=== PATIENT | male | born 1960 | race Caucasian/White ===

== ENCOUNTER 2023-05-25 16:57 | Emergency (ER) | payer OTHER, SELFPAY ==
[2023-05-25 17:08] VITALS: BP 134/80; PULSE 69; RESP 20; TEMP 36.6; O2SAT 97; BMI 33.0
--- NOTE | 2023-05-25 18:40 | XR_ITS ---
The [address] [address] Patient Name: JANIS BRANCH MRN: [id number] date: 1960 Sex: M Assigned Patient Location: ED.MAIN Current Patient Location: Accession/Order Number: [id number] Exam Date: 05/25/2023 19:20 Report Date: 05/25/2023 20:16 At the request of: NOHEMI WERNER Procedure: XR toe RT min 2V IMAGES REVIEWED: XR toe RT min 2V COMPARISON: None available. CLINICAL INDICATION: osteomyelitis FINDINGS/IMPRESSION: 1. No evidence of acute osseous abnormality of the right first toe. No radiographic evidence of osteomyelitis. 2. Small dorsal first toe soft tissue ulcer near the nailbed. Mild soft tissue swelling. 3. 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 Electronically authenticated by: JONA ARIAS Date: 05/25/2023 20:16
--- NOTE | 2023-05-25 18:42 | ED.GENADUL1 ---
HPI - General Adult General Chief complaint: Recheck/Abnormal Lab/Rx Stated complaint: right foot wound check Time Seen by Provider: 05/25/23 17:17 Source: patient Mode of arrival: walk-in Limitations: no limitations History of Present Illness HPI narrative: patient is a 62-year-old male history of diabetes who presents to the emergency department for recheck of a right great toe wound. Patient states one month ago he had a oil winterizer remove toenail from his right great toe. He states he has continued to have some drainage from the area but in the last week the area has become more red around the cuticle. He was concerned because of his history of diabetes. His oil winterizer is unavailable until next week. He denies fevers or vomiting. Related Data Previous Rx's Medication Instructions Recorded cephalexin 500 mg capsule 500 mg PO Q8H 10 days #30 caps 05/25/23 ketorolac 10 mg tablet 10 mg PO TID PRN pain #10 tabs 05/25/23 Allergies Allergy/AdvReac Type Severity Reaction Status Date / Time bisacodyl Allergy Intermediate Verified 05/25/23 17:12 [From Dulcolax (bisacodyl)] metformin Allergy Intermediate Verified 05/25/23 17:12 Review of Systems ROS Constitutional Denies: fever or chills Ears, nose, mouth, and throat Denies: throat pain Respiratory Denies: shortness of breath or cough Gastrointestinal Denies: nausea or vomiting Musculoskeletal Denies: back pain Integumentary/Breast Reports: redness and skin pain; Denies: rash Endocrine Denies: excessive urination Hematologic/Lymphatic Denies: easy bruising Exam Narrative Exam Narrative: Gen.: Awake, alert, in no distress Head: Normocephalic, atraumatic ENT: Moist mucous membranes Respiratory: No respiratory distress Extremities: Moves extremities equally, right great toe with minimal edema and erythema surrounding the toenail. Healing wound of the toenail bed, no active drainage. No red streaking or circumferential erythema. No extension of erythema or edema past the IP joint. Psych: Normal mood and affect Neuro: No focal neuro deficit Skin: Warm, dry, intact Constitutional Vital Signs, click to edit/add: Last Vital Signs Temp 97.8 F 05/25/23 17:08 Pulse 69 05/25/23 17:08 Resp 20 05/25/23 17:08 BP 134/80 05/25/23 17:08 Pulse Ox 97 05/25/23 17:08 O2 Del Method Room Air 05/25/23 17:08 Course Vital Signs Vital signs: Vital Signs Temperature 97.8 F 05/25/23 17:08 Pulse Rate 69 05/25/23 17:08 Respiratory Rate 20 05/25/23 17:08 Blood Pressure 134/80 05/25/23 17:08 Pulse Oximetry 97 05/25/23 17:08 Oxygen Delivery Method Room Air 05/25/23 17:08 Temperature 97.8 F 05/25/23 17:08 Pulse Rate 69 05/25/23 17:08 Respiratory Rate 20 05/25/23 17:08 Blood Pressure 134/80 05/25/23 17:08 Pulse Oximetry 97 05/25/23 17:08 Oxygen Delivery Method Room Air 05/25/23 17:08 Medical Decision Making MDM Narrative Medical decision making narrative: x-ray with no evidence of osteomyelitis and lab studies are stable in the Emergency Room. Patient will be placed on Keflex as a precaution due to early redness around the toenail and diabetic history. Follow-up with podiatry as scheduled and return to the Emergency Room if symptoms change or worsen. Medical Records Medical records reviewed: Yes I reviewed the patient's medical records Lab Data Lab results reviewed: Yes I reviewed the patient's lab results Labs: Lab Results 05/25/23 Range/Units 18:57 WBC 7.4 (4.0-11.0) 10^3/uL RBC 5.31 (4.70-6.10) 10^6/uL Hgb 15.7 (14.0-18.0) g/dL Hct 45.1 (42.0-54.0) % MCV 84.9 (80.0-94.0) fL MCH 29.6 (25.9-34.0) pg MCHC 34.8 (29.9-35.2) g/dL RDW 12.6 (11.0-15.0) % Plt Count 207 (150-450) 10^3/uL MPV 8.6 L (9.5-13.5) fL Neut % (Auto) 62.0 (43.0-75.0) % Lymph % (Auto) 23.3 (20.5-60.0) % [place] % (Auto) 9.3 (1.7-12.0) % Eos % (Auto) 4.0 (0.9-7.0) % Baso % (Auto) 0.9 (0.2-2.0) % Neut # (Auto) 4.6 (1.4-6.5) 10^3/uL Lymph # (Auto) 1.7 (1.2-3.8) 10^3/uL [place] # (Auto) 0.7 (0.3-0.8) 10^3/uL Eos # (Auto) 0.3 (0.0-0.7) 10^3/uL Baso # (Auto) 0.1 (0.0-0.1) 10^3/uL Abs Immat Gran (auto) 0.04 H (0.00-0.03) 10^3/uL Imm/Tot Granulo (auto) 0.5 (0.0-0.5) % Sodium 139 (136-145) mmol/L Potassium 3.9 (3.5-5.1) mmol/L Chloride 105 (98-107) mmol/L Carbon Dioxide 25.5 (21.0-32.0) mmol/L Anion Gap 12.4 BUN 18.0 (7.0-18.0) mg/dL Creatinine 1.30 (0.70-1.30) mg/dL Est GFR ( Amer) >60 (>=60) Est GFR (Non-Af Amer) 56 L (>=60) BUN/Creatinine Ratio 13.8 Glucose 97 (74-106) mg/dL Lactate 0.7 (0.4-2.0) mmol/L Calcium 9.0 (8.5-10.1) mg/dL Total Bilirubin 0.5 (0.2-1.0) mg/dL AST 25 (15-37) U/L ALT 38 (16-63) U/L Alkaline Phosphatase 102 (46-116) U/L C-Reactive Protein <0.2 (<=1.0) mg/dL Total Protein 7.1 (6.4-8.2) g/dL Albumin 4.3 (3.4-5.0) g/dL Globulin 2.8 g/dL Albumin/Globulin Ratio 1.5 Imaging Data XR toe: Attestation: I have reviewed the pertinent imaging results. Discharge Plan Discharge Chief Complaint: Recheck/Abnormal Lab/Rx Clinical Impression: Wound infection after surgery Patient Disposition: Home, Self-Care Time of Disposition Decision: 19:41 Condition: Good Prescriptions / Home Meds: New ketorolac 10 mg tablet 10 mg PO TID PRN (Reason: pain) Qty: 10 0RF cephalexin 500 mg capsule 500 mg PO Q8H 10 Days Qty: 30 0RF Instructions: Wound Infection (ED) Additional Instructions: Follow up with Dr. Hayward as scheduled Stand Alone Forms: Portal Instructions Referrals: Shaikh Simental MD [Primary Care Provider] - 1 week
[2023-05-25] MEDS: KETOROLAC TROMETHAMINE 10 MG TABLET PO (18:58)
[2023-05-25 19:03] LABS: Basophils Absolute Auto 0.1 10^3/uL (0.0-0.1); Basophils Percent Auto 0.9 % (0.2-2.0); Eosinophils Absolute Auto 0.3 10^3/uL (0.0-0.7); Hematocrit 45.1 % (42.0-54.0); Hemoglobin 15.7 g/dL (14.0-18.0); Immature Granulocytes Abs Auto 0.04 10^3/uL (0.00-0.03); Immature Granulocytes Pct Auto 0.5 % (0.0-0.5); Lymphocytes Absolute Auto 1.7 10^3/uL (1.2-3.8); Lymphocytes Percent Auto 23.3 % (20.5-60.0); Mean Corpuscular HGB Conc 34.8 g/dL (29.9-35.2); Mean Corpuscular Hemoglobin 29.6 pg (25.9-34.0); Mean Corpuscular Volume 84.9 fL (80.0-94.0); Mean Platelet Volume 8.6 fL (9.5-13.5); Monocytes Absolute Auto 0.7 10^3/uL (0.3-0.8); Monocytes Percent Auto 9.3 % (1.7-12.0); Neutrophils Absolute Auto 4.6 10^3/uL (1.4-6.5); Platelet Count 207 10^3/uL (150-450); Red Blood Count 5.31 10^6/uL (4.70-6.10); Red Cell Distribution Width 12.6 % (11.0-15.0); White Blood Count 7.4 10^3/uL (4.0-11.0)
[2023-05-25 19:19] LABS: Alanine Aminotransferase 38 U/L (16-63); Albumin Globulin Ratio 1.5; Albumin Level 4.3 g/dL (3.4-5.0); Alkaline Phosphatase 102 U/L (46-116); Anion Gap 12.4; Aspartate Amino Transferase 25 U/L (15-37); BUN Creatinine Ratio 13.8; Bilirubin Total 0.5 mg/dL (0.2-1.0); Carbon Dioxide 25.5 mmol/L (21.0-32.0); Chloride 105 mmol/L (98-107); Estimated GFR (African America >60 (>=60); Estimated GFR (Non-African Ame 56 (>=60); Globulin 2.8 g/dL; Glucose 97 mg/dL (74-106); Potassium 3.9 mmol/L (3.5-5.1); Sodium 139 mmol/L (136-145); Total Protein 7.1 g/dL (6.4-8.2)
[2023-05-25 19:21] LABS: C Reactive Protein <0.2 mg/dL (<=1.0)
[2023-05-25 19:22] LABS: Lactate/Lactic Acid 0.7 mmol/L (0.4-2.0)
--- NOTE | 2023-05-25 19:31 | PC.NURSE ---
Patient states that it has been one month and one day since he had his right great toe nail removed by a platform worker. He works at [employer] and walks 6-8 miles per day, states that he has a lot of pain, the toe swells a significant amount, and he has drainage on his sock after work. The toe is swollen and red at this time, but there is no active drainage.
[2023-05-25 20:28] LABS: Erythrocyte Sedimentation Rate 11 mm/hr (<=20)
== END 2023-05-25 19:51 | disposition home or self-care (01) ==
PROVIDERS: Physician Assistant; Emergency Provider Emergency Medicine; PCP Internal Medicine
DX: T81.49XA Infection following a procedure, other surgical site, initial encounter (principal); E11.9 Type 2 diabetes mellitus without complications
CPT/HCPCS: 36415; 73660; 80053; 83605; 85025; 85652; 86140; 99284

== ENCOUNTER 2024-05-24 14:31 | Outpatient (OUT) | payer OTHER, SELFPAY ==
[2024-05-24 15:18] LABS: Creatinine Urine Random 271.38 mg/dL (20.00-300.00); Microalbumin Urine Random <1.3 mg/dL (<=30.0)
[2024-05-24 15:34] LABS: Anion Gap 10.5; BUN Creatinine Ratio 9.6; Calcium 9.2 mg/dL (8.5-10.1); Carbon Dioxide 27.7 mmol/L (21.0-32.0); Chloride 104 mmol/L (98-107); Chol HDL Ratio 3.5; Cholesterol 115 mg/dL (<=200); Estimated GFR (African America >60 (>=60); Estimated GFR (Non-African Ame 58 (>=60); Glucose 111 mg/dL (74-106); HDL Cholesterol 33 mg/dL (40-60); Phosphorus 3.8 mg/dL (2.6-4.7); Potassium 4.2 mmol/L (3.5-5.1); Sodium 138 mmol/L (136-145); Triglycerides 103 mg/dL (<=150); VLDL CHOLESTEROL 20.6 mg/dL
[2024-05-25 04:08] LABS: C-Peptide, Serum 6.4 ng/mL (1.1-4.4)
== END 2024-05-24 14:32 | disposition home or self-care (01) ==
LOC: LAB 14:33
PROVIDERS: PCP Internal Medicine; Visit Provider Internal Medicine
DX: E11.49 Type 2 diabetes mellitus with other diabetic neurological complication (principal); E55.9 Vitamin D deficiency, unspecified; E78.2 Mixed hyperlipidemia; Z71.3 Dietary counseling and surveillance
CPT/HCPCS: 36415; 80061; 80069; 82043; 82306; 82570; 84681

== ENCOUNTER 2024-05-27 13:17 | Outpatient (OUT) | payer OTHER, SELFPAY ==
--- NOTE | 2024-05-27 13:23 | XR_ITS ---
The [place] [id number] Patient Name: JANIS BRANCH MRN: [id number] date: 1960 Sex: M Assigned Patient Location: [facility] Current Patient Location: Accession/Order Number: [id number] Exam Date: 05/27/2024 13:29 Report Date: 05/29/2024 05:16 At the request of: REYNOLD JOHANSEN Procedure: XR hand RT 2V PROCEDURE: XR hand RT 2V HISTORY: Injury Of Finger Of Right Hand S69.91XA ; fourth digit pain since falling 6 weeks ago COMPARISON: None. FINDINGS: BONES:No acute fracture, dislocation, bone lesion. Multifocal mild degenerative changes. SOFT TISSUES:No visible soft tissue swelling. EFFUSION:None visible. OTHER: Negative. XR/XR hand RT 2V IMPRESSION: 1. No acute or suspicious findings to account for patient's symptoms. Electronically authenticated by: BEN CAMACHO Date: 05/29/2024 05:16
== END 2024-05-27 13:18 | disposition home or self-care (01) ==
LOC: RAD 13:18
DX: S69.91XA Unspecified injury of right wrist, hand and finger(s), initial encounter (principal)
CPT/HCPCS: 73120

== ENCOUNTER 2024-11-11 10:09 | Outpatient (OUT) | payer OTHER, SELFPAY ==
--- OUTSIDE RECORDS SUMMARY | 2024-11-11 10:15 | XMS_ITS | CCD ---
Author Organization [facility] Care Team Providers Care Manager Lan Name Role Phone UNKNOWN, PROVIDER Attending Unavailable CRANBERRY, PAUL Primary Care Unavailable House, Paul Cherry Unavailable Unavailable Unavailable House Sr., Paul Robert Primary Care Provider Poonam Gamez PA-C Unavailable [phone] House Sr., [facility] Primary Care Provider Poonam Gamez PA-C Unavailable KATTY JEAN BAPTISTE Attending Unavailable HOUSE SR, [facility] Care UnaKATTY Adam Attending Unavailable CRANBERRY SR, [facility] Care Unava joi ALTAMIRANOD, HOLLOWAY H Primary Care Unavailable CARLOS Call, DR HODGSON Attending Unavailable CARLOS Call, DR HODGSON Admitting Unavailable JANICE, DR BEN Neely Consulting Unavailable CARLOS Call, DR HODGSON Consulting Unavailable FAWWAD, HOLLOWAY H Primary Care Unavailable MERCEDES MARTINEZ Attending Unavailable MARISA, WINNIE Consulting Unavailable JULIA ., MERCEDES Admitting Unavailable CECILIA STRATTON Consulting Unavailable JULIA ., MERCEDES Consulting Unavailable FAWWAD, HOLLOWAY H Primary Care Unavailable JANICE, DR BEN Neely Consulting Unavailable JULIA ., MERCEDES Admitting Unavailable JULIA ., MERCEDES Attending Unavailable JLUIA ., MERCEDES Consulting Unavailable FAWWAD, HOLLOWAY H Primary Care Unavailable JULIA ., MERCEDES Consulting Unavailable JULIA ., MERCEDES Attending Unavailable JULIA ., MERCEDES Admitting Unavailable FAWWAD, HOLLOWAY H Primary Care Unavailable CARLOS Call, DR HODGSON Admitting Unavailable CARLOS Call, DR HODGSON Attending Unavailable RONNI .GEMMA Consulting Unavailable SIMON RENDON Consulting Unavailable GONZALO BERRY Consulting Unavailable EMORY NICOLE Consulting Unavailable FAWWAD, HOLLOWAY H Primary Care Unavailable HAY ., DR HODSGON Admitting Unavailable HAY ., DR HODGSON Consulting Unavailable HAY ., DR HODGSON Attending Unavailable FAWWAD, HOLLOWAY H Attending Unavailable FAWWAD, HOLLOWAY H Admitting Unavailable FAWWAD, HOLLOWAY H Primary Care Unavailable FAWWAD, HOLLOWAY H Consulting Unavailable BRIZUELA, TWILA Consulting Unavailable FAWWAD, HOLLOWAY H Attending Unavailable FAWWAD, HOLLOWAY H Admitting Unavailable FAWWAD, HOLLOWAY H Primary Care Unavailable FAWWAD, HOLLOWAY H Consulting Unavailable FAWWAD, HOLLOWAY H Attending Unavailable FAWWAD, HOLLOWAY H Admitting Unavailable FAWWAD, HOLLOWAY H Primary Care Unavailable BLOOMINGBURG, DR WINSOME Tse Consulting Unavailable FAWWAD, HOLLOWAY H Attending Unavailable FAWWAD, HOLLOWAY H Admitting Unavailable FAWWAD, HOLLOWAY H Primary Care Unavailable JANICE, DR BEN Neely Consulting Unavailable FAWWAD, HOLLOWAY H Consulting Unavailable Chang Barba Attending Unavailable Chang Barba Referring Unavailable Dr. Paul Jarvis Robert Primary Care Unava ilable Dary Cuevas Unavailable Hola STEIN, Primary Care Provider [phone] Chang Barba DO Unavailable Ilia Hernandez MD Unavailable Mark MANAGER AUDIO, Reynold Unavailable Ilia Hernandez MD Primary Care Provider [phone] Mark MANAGER AUDIO, Reynold Unavailable Ilia Hernandez MD Unavailable CHANG BARBA Attending Unavailable FAWWAD, HOLLOWAY Primary Care Unavailable Hola STEIN, Unavailable SHAIKH SIMENTAL Attending Unavailable FAWWAD, HOLLOWAY Attending Unavailable BEN BROWN Attending Unavailable EDDIE BRAXTON Attending Unavailable FAWWAD, HOLLOWAY Referring Unavailable REYNOLD FLORES Attending UnavailFLAVIA Rivera Attending Unavailable FLAVIA FRAUSTO Attending Unavailable ABDI ORTIZ Attending Unavailable ABDI ORTIZ Referring Unavailable REYNOLD FLORES Attending Unavailabl e Allergies Allergy Classification Reported Allergen(s) Allergy Type Date of Onset Reaction(s) Facility (10 sources) Angiotensin Converting Enzyme (Rakel) Inhibitors; Translations: [RAKEL Inhibitors] Allergy to drug (finding) [address] [facility] 3 Repository (20 sources) Diclofenac; Translations: [diclofenac] Drug Allergy 7 Anaphylaxis, Unknown, Other, Shortness of breath [facility] (11 sources) Lisinopril; Translations: [lisinopril] Drug Allergy 3 [facility] Work Phone: (20 sources) metFORMIN; Translations: [metformin] Drug Allergy 4 Other: See Comments, Cough, Other, Unknown [facility] (9 sources) Thimerosal and Related; Translations: [Thimerosal and Related] Allergy to drug (finding) [facility] Work Phone: (7 sources) Other Allergy to substance (finding) [facility] 250 DO Work Phone: (1 source) Diclofenac Drug Allergy [facility] Repository (1 source) metFORMIN Drug Allergy 3 [facility] Repository (1 source) Angiotensin-con verting enzyme inhibitor agent Drug Intolerance 3 [facility] (12 sources) Thimerosal; Translations: [THIMEROSAL] Drug Allergy 3 [facility] Work Phone: (10 sources) Angiotensin-con verting enzyme inhibitor agent Drug Intolerance 3 [facility] (8 sources) Lisinopril Propensity to adverse reactions 4 [facility] Healthcare Medications Current Medications Medication Drug Class(es) Dates Sig (Normalized) Sig (Original) aspirin 81 mg delayed release oral tablet (20 sources) Platelet Aggregation Inhibitor, Nonsteroidal Anti-inflammatory Drug Start: 11-15-2021 take 1 tablet by mouth once daily ASPIR 81 MG EC tablet Take 81 mg by mouth Daily 08/04/2023 Active Comment on above: Aspir-81 atorvastatin 40 mg oral tablet (20 sources) HMG-CoA Reductase Inhibitor Start: 10-30-2023 take 1 tablet by mouth at bedtime atorvastatin (Lipitor) 40 MG tablet Take 40 mg by mouth at bedtime 10/30/2023 Active Start: 11-08-2022 take 1 tablet by santhosh th at bedtime Atorvastatin Calcium 40 MG Oral Tablet take 1 tablet by mouth at bedtime Quantity: 90 Refills: 3 Ordered: 14-Feb-2023 Chang Barba DO Start : 08-Nov-2022 Active Start: 03-27-2018 atorvastatin ( LIPITOR) 40 mg tablet Take 40 mg by mouth. 0 03/27/2018 Active take 1 tablet by santhosh th every twenty-four hours Lipitor 10 MG 1 tablet Orally Once a day Active Comment on above: Take 40 mg by mouth. baclofen 10 mg oral tablet (19 sources) gamma-Aminobutyri c Acid-ergic Agonist Start: 11-17-2020 End: 02-07-2024 take 1 tablet by mouth once daily at bedtime baclofen (Lioresal) 10 mg tablet Take 1 tablet (10 mg) by mouth once daily at bedtime. 11/17/2020 02/07/2024 Discontinued (Therapy completed) take 1 tablet by mouth every twe lve hours Baclofen 10 MG 1 tablet with food or milk Orally Two times a day Active Comment on above: baclofen 10 mg table t carvedilol 6.25 mg oral tablet (10 sources) alpha-Adrenergic Sabina, beta-Adrenergic Sabina Start: 11-15-19 End: 08-20-20 24 take 1 tablet by mouth twice daily carvedilol (Coreg) 6.25 mg tablet Indications: Ischemic cardiomyopathy Take 1 tablet (6.25 mg) by mouth 2 times a day. 180 tablet 3 10/30/2023 Active Comment on above: carvedilol 6.25 mg t ablet glimepiride 4 mg oral tablet (15 sources) Sulfonylurea Start: 10-21-20 take 1 tablet by mouth twice daily glimepiride (Amaryl) 4 MG tablet Indications: Type 2 diabetes mellitus with other diabetic neurological complication (CMS/HCC) TAKE 1 TABLET BY MOUTH TWICE DAILY 180 tablet 1 10/21/2024 Active Start: 11-13-2021 take 1 tablet by santhosh th twice daily Glimepiride 4 MG Oral Tablet TAKE 1 TABLET TWICE DAILY. Quantity: 0 Refills: 0 Ordered: 13-Nov-2021 DO Start : 13-Nov-2021 Active take 1 tablet by santhosh th every twenty-four hours Amaryl 2 MG 1 tablet with breakfast or the first main meal of the day Orally Once a day Not-Taking Comment on above: glimepiride 4 mg tab let 0.1 ml glucagon 5 mg/ml auto-injector (7 sources) Antihypoglycemic Agent Start: 024 End: 025 inject 0.1 mL by subcutaneous injection once glucagon (Gvoke HypoPen 2-Pack) 0.5 MG/0.1ML injection Indications: Hypoglycemia Inject 0.1 mL (0.5 mg) under the skin 1 (one) time if needed for low blood sugar 0.2 mL 3 09/12/2024 09/12/2025 Active insulin aspart, human 100 unt/ml injectable solution (20 sources) Insulin Analog Start: 023 inject 100 [IU] by subcutaneous injection once daily Fiasp 100 UNIT/ML solution INJECT SUBCUTANEOUSLY DIRECTED WITH insulin pump (max DAILY UNITS 100 UNITS) 01/23/2024 Active Start: 11-10-2021 insulin aspart (NovoLOG U-100 Insulin aspart) 100 unit/mL injection Inject under the skin. 11/10/2021 Active NovoLOG Active Comment on above: Inject subcutaneousl y. Puts 200 units in pump, will last 3 days Insulin Disposable Pump (Omnipod DASH Pods, Gen 4,) misc (11 sources) Start: 10-21-2024 Insulin Disposable Pump (Omnipod DASH Pods, Gen 4,) [facility] [place]ications: Type 2 diabetes mellitus with hyperglycemia, with long-term current use of insulin (CMS/HCC) USE DIRECTED * change pod EVERY 72 HOURS * 30 each 1 10/21/2024 Active Start: 09-18-2024 Insulin Dispos able Pump (Omnipod DASH Pods, Gen 4,) [facility] [place] Indications: Type 2 diabetes mellitus with hyperglycemia, with long-term current use of insulin (CMS/HCC) Use as instructed 10 each 5 09/18/2024 Active Start: 02-11-2024 End: 09-18-2024 Insulin Disposable Pump (Omn ipod DASH Pods, Gen 4,) misc change pod EVERY 72 HOURS 02/11/2024 09/18/2024 Discontinued (Reorder) Start: 02-11-2024 Insulin Dispos able Pump (Omnipod DASH Pods, Gen 4,) misc change pod EVERY 72 HOURS 02/11/2024 Active insulin pump cart,cont inf,BT (Omnipod Dash Pods, Gen 4,) cartridge (1 source) insulin pump car t,cont inf,BT (Omnipod Dash Pods, Gen 4,) cartridge Inject under the skin. Active 3 ml liraglutide 6 mg/ml pen injector (17 sources) GLP-1 Receptor Agonist Start: 01-29-2021 End: 02-07-2024 liraglutide (Victoza 2-Jackson) 0.6 mg/0.1 mL (18 mg/3 mL) injection Inject under the skin. 01/29/2021 02/07/2024 Discontinued (Therapy completed) inject 1.2 mg by sub cutaneous injection once daily Victoza 18 MG/3ML 1.2 mg Subcutaneous Once a day Active meclizine hydrochloride 25 mg oral tablet (5 sources) Antiemetic Start: 10-01-2024 End: 11-30-2024 take 1 tablet by mouth three times daily as needed for nausea meclizine (Antivert) 25 MG tablet Indications: Vertigo Take 1 tablet (25 mg) by mouth 3 (three) times a day as needed for dizziness or nausea 90 tablet 10/31/2024 11/30/2024 Active methylPREDNISolone (1 source) Corticosteroid Start: 10-31-2024 End: 11-07-2024 methylPREDNISolone (Medrol Dospak) 4 MG tablets Indications: Dizziness Follow schedule on package instructions 21 tablet 10/31/2024 11/07/2024 Active nitroglycerin 0.4 mg sublingual tablet (20 sources) Nitrate Vasodilator Start: 02-07-2024 nitroglycerin (Nitrostat) 0.4 MG SL tablet DISSOLVE 1 TABLET UNDER THE TONGUE NEEDED FOR CHEST PAIN- MAY REPEAT EVERY 5 MINUTES IF NEEDED ( MAX 3 DOSES.- IF NO RELIEF CALL 911) 02/07/2024 Active Start: 02-07-2024 nitroglycerin (Nitrostat) 0.4 mg SL tablet Indications: Two-vessel coronary artery disease , History of PTCA Place 1 tablet (0.4 mg) under the tongue every 5 minutes if needed for chest pain. Place 1 tablet under the tongue every 5 minutes up to 3 doses as needed for chest pain. Call 900 if pain persists 90 tablet 3 02/07/2024 Active Start: 08-09-2021 End: 02-07-2024 nitroglycerin (Nitrostat) 0. [address] under the tongue. Place 1 tablet under the tongue every 5 minutes up to 3 doses as needed for chest pain. Call 900 if pain persists 08/09/2021 02/07/2024 Discontinued (Reorder) Start: 08-09-2021 nitroglycerin sublingual (NITROQUICK) 0.4 mg SL tablet nitroglycerin 0.4 mg sublingual tablet 0 08/09/2021 Active Comment on above: nitroglycerin 0.4 mg sublingual tablet Ozempic, 0.25 or 0.5 MG/DOSE, 2 MG/3ML solution pen-injector (10 sources) Start: 10-28-19 inject 0.5 mg by subcutaneous injection every week Ozempic, 0.25 or 0.5 MG/DOSE, 2 MG/3ML solution pen-injector Indications: Type 2 diabetes mellitus with other diabetic neurological complication (CMS/HCC) INJECT 0.5mg SUBCUTANEOUSLY weekly 9 mL 1 10/28/2024 Active Start: 11-17-2023 Ozempic, 0.25 or 0.5 MG/DOSE, 2 MG/3ML solution pen-injector Inject 0.5 mg under the skin every 7 (seven) days 11/17/2023 Active predniSONE 20 mg oral tablet (1 source) Start: 08-07-2023 take 1 tablet by mouth every twelve hours predniSONE 20 MG 1 tablet Orally bid for 5 day(s) Jul, Active pregabalin 75 mg oral capsule (9 sources) take 1 capsule by mouth in the morning pregabalin (Lyrica) 75 MG capsule Take 75 mg by mouth in the morning and 75 mg before bedtime. Active pregabalin (LYRI CA) 50 mg capsule Lyrica 50 mg capsule 0 Active Comment on above: Lyrica 50 mg capsule propranolol hydrochloride 20 mg oral tablet (12 sources) beta-Adrenergic Sabina Start: End: 11-28-2 024 take 1 tablet by mouth in the morning propranolol (Inderal) 20 MG tablet Indications: Essential tremor Take 1 tablet (20 mg) by mouth in the morning and 1 tablet (20 mg) before bedtime. 60 tablet 4 08/20/2024 Active 1 mg dose 1.5 ml semaglutide 1.34 mg/ml pen injector (1 source) inject 1 mg by subcutaneous injection every week semaglutide (Ozempic) 1 mg/dose (2 mg/1.5 mL) pen injector Inject 1 mg under the skin 1 (one) time per week. Active spironolactone 25 mg oral tablet (19 sources) Aldosterone Antagonist Start: 023 take 1 tablet by mouth once daily spironolactone (Aldactone) 25 MG tablet Take 25 mg by mouth Daily 09/13/2023 Active Start: 11-16-2020 take 1 tablet by santhosh th once daily Spironolactone 25 MG Oral Tablet TAKE 1 TABLET BY MOUTH EVERY DAY Quantity: 90 Refills: 3 Ordered: 30-Nov-2022 Josey Solis Start : 16-Nov-2020 Active Comment on above: spironolactone 25 mg tablet Completed/Discontinued Medications Medication Drug Class(es) Dates Sig (Normalized) Sig (Original) acetaminophen 325 mg / HYDROcodone bitartrate 5 mg oral tablet (1 source) Opioid Agonist Start: 05-25-2022 take 1 tablet by mouth once HYDROcodone-acetamin ophen (NORCO) 5-325 mg per tablet Take 1 tablet by mouth. 0 05/25/2022 Active Comment on above: Take 1 tablet by santhosh th. celecoxib 100 mg oral capsule (1 source) Nonsteroidal Anti-inflammatory Drug Start: 03-16-2022 celecoxib (CELEBREX) 100 mg capsule Take 100 mg by mouth. 0 03/16/2022 Active Comment on above: Take 100 mg by mouth . cyclobenzaprine hydrochloride 10 mg oral tablet (1 source) Muscle Relaxant Start: 06-07-2022 cyclobenzaprine (FLEXERIL) 10 mg tablet Take 10 mg by mouth. 0 06/07/2022 Active Comment on above: Take 10 mg by mouth. once-daily gabapentin 600 mg oral tablet (1 source) Anti-epileptic Agent End: 09-22-2022 gabapentin (GRALISE) 600 mg Tb24 Gralise 600 mg tablet,extended release 0 09/22/2022 Discontinued Comment on above: Gralise 600 mg table t,extended release 3 ml insulin degludec 100 unt/ml pen injector (1 source) Insulin Analog Start: 08-30-2021 insulin degludec (TRESIBA FLEXTOUCH U-100) 100 unit/mL (3 mL) injection pen methocarbamol 750 mg oral tablet (1 source) Muscle Relaxant methocarbamol (ROBAXIN) 750 mg tablet methocarbamol 750 mg tablet 0 Active Comment on above: methocarbamol 750 mg tablet naproxen 500 mg oral tablet (6 sources) Nonsteroidal Anti-inflammatory Drug Start: 08-25-2021 End: 09-22-2022 take 1 tablet by mouth twice daily at mealtime Naproxen 500 MG Oral Tablet TAKE 1 TABLET BY MOUTH TWICE DAILY WITH MEALS Quantity: 60 Refills: 0 Ordered: 21-Sep-2021 DO Start : 25-Aug-2021 Active Comment on above: Take by mouth. primidone 250 mg oral tablet (6 sources) Anti-epileptic Agent Start: 10-12-2020 take 0.5 tablet by mouth once daily Primidone 250 MG Oral Tablet TAKE 1/2 (ONE-HALF) OF A TABLET BY MOUTH EVERY DAY Quantity: 15 Refills: 0 Ordered: 01-Feb-2021 DO Start : 12-Oct-2020 Active Start: 10-12-2020 primidone (MYS OLINE) 250 mg tablet Take 125 mg by mouth. 0 10/12/2020 Active Comment on above: Take 125 mg by mouth . sildenafil 100 mg oral tablet (1 source) Phosphodiesterase 5 Inhibitor Start: 08-02-2021 sildenafil (VIAGRA) 100 mg tablet TAKE 1 TABLET BY MOUTH 1 HOUR BEFORE SEXUAL ACTIVITY NEEDED. 0 08/02/2021 Active Comment on above: TAKE [address] [facility] 1 HOUR BEFORE SEXUAL ACTIVITY NEEDED. SITagliptin 100 mg oral tablet (1 source) Dipeptidyl Peptidase 4 Inhibitor SITagliptin phosphat e (JANUVIA) 100 mg tablet Januvia 100 mg tablet 0 Active Comment on above: Januvia 100 mg table t Problems Active Problems Problem Classification Problem Date Documented Da te Episodic/Chronic Conditions associated with dizziness or vertigo (9 sources) Vertigo; Translations: [Dizziness and giddiness] Onset: 10-31-2024 10-31-2024 Episodic Coronary atherosclerosis and other heart disease (20 sources) Ischemic cardiomyopathy; Translations: [Atherosclerotic heart disease of [place] coronary artery without angina pectoris] Onset: 11-01-2018 02-07-2024 Chronic Diabetes mellitus with complications (3 sources) Hyperglycemia due to type 2 diabetes mellitus; Translations: [Type 2 diabetes mellitus with hyperglycemia] 09-10-2024 Chronic Diabetes mellitus without complication (20 sources) Diabetes mellitus; Translations: [Diabetes mellitus without mention of complication, type II or unspecified type, not stated as uncontrolled] Onset: 04-30-2014 Chronic Diabetes mellitus without complication (11 sources) Presence of insulin pump (external) (internal); Translations: [Insulin pump present] Onset: 01-02-2023 08-26-2024 Episodic Disorders of lipid metabolism (20 sources) Hyperlipidemia, unspecified; Translations: [Hyperlipidemia] Onset: 11-01-2018 02-07-2024 Chronic Essential hypertension (16 sources) Essential (primary) hypertension; Translations: [Hypertensive disorder] Onset: 08-26-2022 02-07-2024 Chronic Nutritional deficiencies (10 sources) Vitamin D deficiency; Translations: [Vitamin D deficiency, unspecified] Onset: 08-26-2024 08-26-2024 Chronic Osteoarthritis (10 sources) Osteoarthritis of right hip joint; Translations: [Unilateral primary osteoarthritis, right hip] Onset: 08-08-2018 01-03-2024 Chronic Other aftercare (1 source) residential (current) use of aspirin; Translations: [CLINICAL EXERCISE SPECIALIST CURRENT USE OF ASPIRIN] Onset: 01-02-2023 Episodic Other aftercare (1 source) Other intermediate project manager (current) drug therapy; Translations: [OTH CLINICAL EXERCISE SPECIALIST CURRENT DRUG THERAPY] Onset: 01-02-2023 Episodic Other aftercare (10 sources) Long-term current use of insulin; Translations: [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] Onset: 08-26-2024 08-26-2024 Episodic Other connective tissue disease (1 source) Arthrodesis status; Translations: [ARTHRODESIS STATUS] Onset: 01-02-2023 Episodic Other endocrine disorders (2 sources) Hypoglycemia; Translations: [Hypoglycemia, unspecified] 09-10-2024 Chronic Other hereditary and degenerative nervous system conditions (12 sources) Essential tremor; Translations: [Essential tremor] Onset: 03-04-2024 08-20-2024 Chronic Other nervous system disorders (1 source) Other chronic pain; Translations: [OTHER CHRONIC PAIN] Onset: 05-02-2022 Chronic Other nutritional; endocrine; and metabolic disorders (5 sources) Body mass index 30+ - obesity; Translations: [Obesity, unspecified] Onset: 02-07-2024 02-07-2024 Chronic Other nutritional; endocrine; and metabolic disorders (14 sources) Obesity; Translations: [Obesity, unspecified] Onset: 08-26-2024 08-26-2024 Chronic Other nutritional; endocrine; and metabolic disorders (2 sources) Obesity caused by energy imbalance; Translations: [Class 1 obesity due to excess calories with serious comorbidity and body mass index (BMI) of 34.0 to 34.9 in adult] 09-10-2024 Chronic Other nutritional; endocrine; and metabolic disorders (2 sources) Body mass index (BMI) 32.0-32.9, adult; Translations: [Body mass index (BMI) 32.0-32.9, adult] Onset: 02-07-2024 Chronic Residual codes; unclassified (10 sources) Sleep apnea; Translations: [Sleep apnea, unspecified] Onset: 04-30-2014 01-03-2024 Chronic Spondylosis; intervertebral disc disorders; other back problems (20 sources) Degeneration of thoracic intervertebral disc; Translations: [Other intervertebral disc degeneration, thoracic region] Onset: 06-15-2017 Chronic Unclassified (4 sources) CONTACT W/AND (SUSP) EXPOS COVID-19; Translations: [CONTACT W/AND (SUSP) EXPOS COVID-19] Onset: 04-01-2022 Unclassified (2 sources) LOW BACK PAIN, UNSPECIFIED; Translations: [LOW BACK PAIN, UNSPECIFIED] Onset: 08-26-2022 Unclassified (1 source) OTH ACCIDENT STND MICR MOB CONV IN; Translations: [OTH ACCIDENT STND MICR MOB CONV IN] Onset: 08-26-2022 Past or Other Problems Problem Classification Problem Date Documented Da te Episodic/Chronic Abdominal pain (4 sources) Unspecified abdominal pain; Translations: [UNSPECIFIED ABDOMINAL PAIN] Onset: 03-19-2022 Episodic Coronary atherosclerosis and other heart disease (3 sources) Presence of coronary angioplasty implant and graft; Translations: [Coronary angioplasty status] Onset: 02-04-2022 Episodic Mood disorders (10 sources) Mood disorders Onset: 03-04-2024 03-04-2024 Nonspecific chest pain (20 sources) Anterior chest wall pain; Translations: [Other chest pain] Onset: 02-02-2022 Episodic Other aftercare (3 sources) 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; Translations: [RESIDENTIAL CURRENT USE OF INSULIN] Onset: 01-02-2023 Episodic Other injuries and conditions due to external causes (1 source) Other injury of unspecified body region, initial encounter; Translations: [OTHER INJURY UNS BODY REGION INIT] Onset: 08-26-2022 Episodic Other injuries and conditions due to external causes (10 sources) Injury of finger of right hand; Translations: [Unspecified injury of right wrist, hand and finger(s), initial encounter] Onset: 05-27-2024 05-27-2024 Episodic Other lower respiratory disease (4 sources) Respiratory disorder, unspecified; Translations: [RESPIRATORY DISORDER UNSPECIFIED] Onset: 03-29-2022 Episodic Other lower respiratory disease (1 source) Pleurodynia; Translations: [PLEURODYNIA] Onset: 02-04-2022 Episodic Other skin disorders (10 sources) Suspected malignant pigmented skin lesion; Translations: [Disorder of pigmentation, unspecified] Onset: 03-04-2024 03-04-2024 Episodic Other upper respiratory infections (15 sources) Acute pharyngitis, unspecified; Translations: [Acute upper respiratory infection, unspecified] Onset: 12-31-2022 Episodic Spondylosis; intervertebral disc disorders; other back problems (16 sources) Thoracic radiculitis; Translations: [Radiculopathy, thoracic region] Onset: 01-14-2022 Episodic Sprains and strains (1 source) Strain of muscle, fascia and tendon of lower back, initial encounter; Translations: [STRAIN MUSC FASC TENDON LW BACK INT] Onset: 08-26-2022 Episodic Unclassified (6 sources) Never smoked tobacco; Translations: [Never a smoker] Unclassified (1 source) LOW BACK PAIN, UNSPECIFIED; Translations: [LOW BACK PAIN, UNSPECIFIED] Onset: 08-24-2022 Unclassified (1 source) CONTACT W/AND (SUSP) EXPOS COVID-19; Translations: [CONTACT W/AND (SUSP) EXPOS COVID-19] Onset: 03-29-2022 Unclassified (1 source) Suspected COVID-19 virus infection Z20.822 Viral infection (1 source) COVID-19 Results Test Name Value Interpretation Reference Range Facility Glucose (Bld) [Mass/Vol]Orde red By: Idalmis Serra on 09-10-2024 Glucose Blood, POC 155 mg/dL [facility] - Hematology and Cell countson 09-10-2024 HbA1c (Bld) [Mass fraction] 6.9 % [facility] No Panel InformationOrdered By: Idalmis Serra on 09-10-2024 [facility] Healthcar e COVID + FLU Quick Testingon 08-07-2023 SARS-CoV-2 (COVID-19) RNA BARNEY+probe Ql (Unsp spec) Positive [facility] Other COVID + FLU Quick Testing Negative [facility] Other Office Visit (Cardiology)on 02-14-2023 Follow-up visit Diagnoses/Problems Assessed History of PTCA (V45.82) (Z98.61) History of MT (myocardial infarction) (412) (I25.2) Ischemic cardiomyopathy (414.8) (I25.5) Diabetes mellitus (250.00) (E11.9) Class 2 obesity with body mass index (BMI) of 35.0 to 35.9 in adult (278.00,V85.35) (E66.9,Z68.35) Hyperlipidemia (272.4) (E78.5) Hypertension (401.9) (I10) Two-vessel coronary artery disease (414.00) (I25.10) Never a smoker Orders Class 2 obesity with body mass index (BMI) of 35.0 to 35.9 in adult Healthy Weight Tips; Status:Complete - Retrospective Authorization; Done: 14Feb2023 Some eating tips that can help you lose weight.; Status:Complete - Retrospective Authorization; Done: 14Feb2023 Hypertension AST; Status:Active - Retrospective Authorization; Requested for:15Jan2024; CRP, High Sensitivity; Status:Active - Retrospective Authorization; Requested for:15Jan2024; Lipid Panel; Status:Active - Retrospective Authorization; Requested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 Performed By: #### C BC ####[facility] K[address]fkdksng[address] [place] [id number]. Magdalene Mckenzie RBC 5.27 106/ul Normal 4.70-6.10 [facility] Comment on above: Performed By: #### C BC ####[facility] [address] [place] [id number]. Magdalene Mckenzie WBC 10.7 103/ul Normal 4.0-11.0 [facility] Comment on above: Performed By: #### C BC ####[facility] [address] [place], [place] [address]Vx. Magdalene Jonah CT ABD/PELVIS WO CONon 03-19 CT ABD/PELVIS WO CON CT ABDOMEN AND PELV IS WITHOUT CONTRAST HISTORY: Abdominal pain. Left flank pain. COMPARISON: None. METHOD: Dose reduction techniques were achieved by using automated exposure control and/or adjustment of mA and/or kV according to patient size and/or use of iterative reconstruction technique. FINDINGS: The lung bases are clear. The evaluation of solid organs is limited with no IV contrast. The evaluation for lymphadenopathy is very limited with no IV contrast. There is no intrahepatic biliary ductal dilatation. The spleen is normal in size. The adrenal glands are normal appearing. There are no renal stones or hydronephrosis. There is a left renal cyst. There are no renal stones or hydronephrosis. There is no bowel wall thickening or obstruction. The appendix is not visualized. There is no free fluid or free air. There are no acute bony abnormalities. IMPRESSION: No renal stones or hydronephrosis. Left renal cyst. Electronically authenticated by: WINNIE CUNNINGHAM Date: 2022-03-19 19:03 Normal [facility] PROF 14(COMP METB)on 022 Albumin [Mass/Vol] 4.1 g/dL Normal 3.4-5.0 [facility] Comment on above: Performed By: #### C MP ####[facility] [address] [place] [id number]. Magdalene Mckenzie Albumin/Globulin [Mass ratio] 1.4 {ratio} Normal [facility] Comment on above: Performed By: #### C MP ####[facility] [address] [place], [place] [address]Ga. Magdalene Mckenzie ALP [Catalytic activity/Vol] 101 U/L Normal 46-116 [facility] Comment on above: Performed By: #### C MP ####[facility] Fuel[address]ljcto[address] [place], [place] [address]Xs. Magdalene Mckenzie ALT [Catalytic activity/Vol] 36 U/L Normal 16-63 [facility] Comment on above: Performed By: #### C MP ####[facility] [address]jujoqzkte[address] [place] [id number]. Magdalene Mckenzie Anion gap [Moles/Vol] 11.5 mmol/L Normal [facility] Comment on above: Performed By: #### C MP ####[facility] Woittswlgj4284 [place] [id number]. Magdalene Mckenzie AST [Catalytic activity/Vol] 14 U/L Critically low 15-37 [facility] Comment on above: Performed By: #### C MP ####[facility] Y[address]njzbqhm[address] [place] [id number]. Magdalene Mckenzie Bilirubin [Mass/Vol] 0.3 mg/dL Normal 0.2-1.0 [facility] Comment on above: Performed By: #### C MP ####[facility] Nkqcwdlkzr4[address] [place] [id number]. Magdalene Mckenzie Calcium [Mass/Vol] 9.0 mg/dL Normal 8.5-10.1 [facility] Comment on above: Performed By: #### C MP ####[facility] Aww[address]arawe30[address] [place] [id number]. Magdalene Mckenzie Chloride [Moles/Vol] 104 mmol/L Normal 98-107 [facility] Comment on above: Performed By: #### C MP ####[facility] [address]by[address] [place], [place] [id number]. Magdalene Mckenzie CO2 [Moles/Vol] 25.8 mmol/L Normal 21.0-32.0 [facility] Comment on above: Performed By: #### C MP ####[facility] Fibjjxqziu[address] [place] [id number]. Magdalene Mckenzie Creatinine [Mass/Vol] 1.27 mg/dL Normal 0.70-1.30 [facility] Comment on above: Performed By: #### C MP ####[facility] Fslpbpgdma[address] [place] [id number]. Magdalene Mckenzie EGFR-AF SLOVAK >60 Normal >=60 [facility] Comment on above: Performed By: #### C MP ####[facility] [address]okk[address] [place] [address]Dr. Magdalene Mckenzie EGFR-NON AF SLOVAK 57 mL/min/1.73m2 Critically low >=60 [facility] Comment on above: Performed By: #### C MP ####[facility] Ydegfnpbkl[address]47 [place] [address]Dr. Magdalene Mckenzie Globulin (S) [Mass/Vol] 3.0 g/dL Normal [facility] Comment on above: Performed By: #### C MP ####[facility] [address] [place], [place] [address]Dr. Magdalene Mckenzie Glucose [Mass/Vol] 258 mg/dL Critically high 74-106 [facility] Comment on above: Performed By: #### C MP ####[facility] [address] [place], [place] [address]Dr. Magdalene Mckenzie Potassium [Moles/Vol] 4.3 mmol/L Normal 3.5-5.1 [facility] Comment on above: Performed By: #### C MP ####[facility] [address]zy[address] [place], [place] [address]Dr. Magdalene Mckenzie Protein [Mass/Vol] 7.1 g/dL Normal 6.4-8.2 [facility] Comment on above: Performed By: #### C MP ####[facility] [address] [place], [place] [address]Dr. Magdalene Mckenzie Sodium [Moles/Vol] 137 mmol/L Normal 136-145 [facility] Comment on above: Performed By: #### C MP ####[facility] [address] [place], [place] [address]Dr. Magdalene Mckenzie Urea nitrogen [Mass/Vol] 20.0 mg/dL Critically high 7.0-18.0 [facility] Comment on above: Performed By: #### C MP ####[facility] [address] [place], [place] [address]Dr. Magdalene Mckenzie Urea nitrogen/Creatinine [Mass ratio] 15.7 mg/mg Normal [facility] Comment on above: Performed By: #### C MP ####[facility] [address]ne[address] [place], [place] [address]Dr. Magdalene Mckenzie XR CHEST 1 Von 03-19-2022 XR CHEST 1 V EXAM: XR CHEST 1 V HISTORY: CHEST PAIN, UNSPECIFIED COMPARISON: Chest radiographs from 02/02/2022 TECHNIQUE: AP radiograph of the chest. FINDINGS: Calcified right hilar lymph nodes. Cardiac size is normal. The lungs are without focal consolidation, pneumothorax, or pleural effusion. No acute osseous abnormality. Dorsal spinal stimulator in place. Degenerative changes of the bilateral acromioclavicular joints. IMPRESSION: 1. No acute pulmonary abnormality. Electronically authenticated by: SONALI TOMAS Date: 2022-03-19 18:49 Normal [facility] CARDIAC SYMONE ADMITon 022 CK [Catalytic activity/Vol] 128 U/L Normal 55-170 [facility] Comment on above: Performed By: #### C DIRK, CMP #### [facility] [address] [place] [address] Dr. Magdalene Mckenzie CK.MB [Mass/Vol] 1.28 ng/mL Normal <=2.37 [facility] Comment on above: Performed By: #### C DIRK, CMP #### [facility] [address] [place] [address] [address] Magdalene Mckenzie HSTROP 9.1 pg/mL Normal 4.0-42.2 [facility] Comment on above: Result Comment: CUT- OFF POINTS HAVE BEEN ESTABLISHED BASED ON THE FOURTH UNIVERSAL DEFINITIONS OF MYOCARDIAL INFARCTION. THE UPPER REFERENCE LIMIT (URL) OF TROPONIN, DEFINED THE 99TH PERCENTILE OF cTnI DISTRIBUTION IN A REFERENCE POPULATION, HAS BEEN CONFIRMED THE DECISION THRESHOLD FOR MT DIAGNOSIS. Performed By: #### C DIRK, CMP #### [facility] [address] [place] [address] [address] Magdalene Mckenzie CORW 66.0 ng/mL Normal <=121.0 [facility] Comment on above: Performed By: #### C DIRK, CMP #### [facility] [address] [place] [address] [address] Magdalene Mckenzie CBC AUTO DIFFon 02-02-2022 BASO # 0.0 103/ul Normal 0.0-0.1 [facility] Comment on above: Performed By: #### C BC #### [facility] [address] [place] [address] [address] Magdalene Mckenzie Basophils/100 WBC (Bld) 0.7 % Normal 0.2-2.0 [facility] Comment on above: Performed By: #### C BC #### [facility] [address] [place] [address] [address] Magdalene Mckenzie EO # 0.1 103/ul Normal 0.0-0.7 [facility] Comment on above: Performed By: #### C BC #### [facility] [address] [place] [address] [address] Magdalene Mckenzie Eosinophils/100 WBC (Bld) 2.4 % Normal 0.9-7.0 [facility] Comment on above: Performed By: #### C BC #### [facility] [address] [place] [address] Dr. Magdalene Mckenzie Erythrocyte distribution width (RBC) [Ratio] 13.4 % Normal 11.0-15.0 [facility] Comment on above: Performed By: #### C BC #### [facility] [address] [place] [address] Dr. Magdalene Mckenzie Hematocrit (Bld) [Volume fraction] 44.9 % Normal 42.0-54.0 [facility] Comment on above: Performed By: #### C BC #### [facility] [address] [place] [address] Dr. Magdalene Mckenzie Hemoglobin (Bld) [Mass/Vol] 14.8 g/dL Normal 14.0-18.0 [facility] Comment on above: Performed By: #### C BC #### [facility] [address] [place] [address] Dr. Magdalene Mckenzie IG # 0.05 10e3/ul Critically high 0.00-0.03 [facility] Comment on above: Performed By: #### C BC #### [facility] [address] [place] [address] Dr. Magdalene Mckenzie IG % 0.9 % Critically high 0.0-0.5 [facility] Comment on above: Performed By: #### C BC #### [facility] [address] [place] [address] Dr. Magdalene Mckenzie LYMPH # 1.4 103/ul Normal 1.2-3.8 [facility] Comment on above: Performed By: #### C BC #### [facility] [address] [place] [address] Dr. Magdalene Mckenzie Lymphocytes/100 WBC (Bld) 23.7 % Normal 20.5-60.0 [facility] Comment on above: Performed By: #### C BC #### [facility] [address] [place] [address] Dr. Magdalene Mckenzie MANUAL DIFF REQ NO Normal [facility] Comment on above: Performed By: #### C BC #### [facility] [address] [place] [address] Dr. Magdaelne Mckenzie MCH (RBC) [Entitic mass] 29.3 pg Normal 25.9-34.0 [facility] Comment on above: Performed By: #### C BC #### [facility] [address] [place] [address] Dr. Magdalene Mckenzie MCHC (RBC) [Mass/Vol] 33.0 g/dL Normal 29.9-35.2 [facility] Comment on above: Performed By: #### C BC #### [facility] [address] [place] [address] Dr. Magdalene Mckenzie MCV (RBC) [Entitic vol] 88.9 fL Normal 80.0-94.0 [facility] Comment on above: Performed By: #### C BC #### [facility] [address] [place] [address] Dr. Magdalene Mckenzie MONO # 0.5 103/ul Normal 0.3-0.8 [facility] Comment on above: Performed By: #### C BC #### [facility] [address] [place] [address] Dr. Magdalene Mckenzie Monocytes/100 WBC (Bld) 9.1 % Normal 1.7-12.0 [facility] Comment on above: Performed By: #### C BC #### [facility] [address] [place] [address] [address] Magdalene Mckenzie NEUT # 3.7 103/ul Normal 1.4-6.5 [facility] Comment on above: Performed By: #### C BC #### [facility] [address] [place] [address] Dr. Magdalene Mckenzie Neutrophils/100 WBC (Bld) 63.2 % Normal 43.0-75.0 [facility] Comment on above: Performed By: #### C BC #### [facility] [address] [place] [address] Dr. Magdalene Mckenzie Platelet mean volume (Bld) [Entitic vol] 9.0 fL Critically low 9.5-13.5 [facility] Comment on above: Performed By: #### C BC #### [facility] [address] [place] [address] Dr. Magdalene Mckenzie PLT 214 103/ul Normal 150-450 [facility] Comment on above: Performed By: #### C BC #### [facility] [address] [place] [address] Dr. Magdalene Mckenzie RBC 5.05 106/ul Normal 4.70-6.10 [facility] Comment on above: Performed By: #### C BC #### [facility] [address] [place] [address] Dr. Magdalene Mckenzie WBC 5.8 103/ul Normal 4.0-11.0 [facility] Comment on above: Performed By: #### C BC #### [facility] [address] [place] [address] Dr. Magdalene Mckenzie CTA CHEST WO W CONon 13-2 022 CTA CHEST WO W CON EXAMINATION: CTA CHEST WO W CON HISTORY: CHEST PAIN, UNSPECIFIED ; left chest/rib pain for several weeks COMPARISON: CT chest 03/20/2018, XR RIBS left 12/15/2021 TECHNIQUE: Multi-planar CT images were created with IV contrast. Axial, Coronal, and Sagittal images. Dose reduction techniques were achieved by using automated exposure control and/or adjustment of mA and/or kV according to patient size and/or use of iterative reconstruction technique. 3-D reconstruction was performed on a separate workstation. FINDINGS: VASCULATURE: No pulmonary embolism or abnormal opacity. LUNGS: No visible pulmonary disease. PLEURA: No mass, effusion, or pneumothorax. PHILIP: No mass or adenopathy. MEDIASTINUM: No mass or adenopathy. CARDIAC: Trace amount of pericardial fluid. No cardiac enlargement. AORTA: No aneurysm or dissection. CHEST WALL: No mass or axillary adenopathy. BONES: Neurostimulator electrodes within thoracic central canal posterior to T6-C7-8 vertebral bodies. LIMITED ABDOMEN: Tiny cysts versus hemangioma within the lateral margin of right hepatic lobe. No suspicious findings. Limited images of the upper abdomen. OTHER: Negative. IMPRESSION: 1. No abnormal or suspicious findings to account for patient's left chest wall pain. 2. Tiny pericardial effusion, similar to previously seen. Electronically authenticated by: BEN CAMACHO Date: 2022-02-02 09:21 Normal [facility] PROF 14(COMP METB)on 022 Albumin [Mass/Vol] 3.9 g/dL Normal 3.4-5.0 [facility] Comment on above: Performed By: #### C DIRK, CMP #### [facility] [address] [place] [address] Dr. Magdalene Mckenzie Albumin/Globulin [Mass ratio] 1.4 {ratio} Normal [facility] Comment on above: Performed By: #### C DIRK, CMP #### [facility] [address] [place] [address] Dr. Magdalene Mckenzie ALP [Catalytic activity/Vol] 80 U/L Normal 46-116 [facility] Comment on above: Performed By: #### C DIRK, CMP #### [facility] [address] [place] [address] [address] Magdalene Mckenzie ALT [Catalytic activity/Vol] 28 U/L Normal 16-63 [facility] Comment on above: Performed By: #### C DIRK, CMP #### [facility] [address] [place] [address] [address] Magdalene Mckenzie Anion gap [Moles/Vol] 9.8 mmol/L Normal [facility] Comment on above: Performed By: #### C DIRK, CMP #### [facility] [address] [place] [address] [address] Magdalene Mckenzie AST [Catalytic activity/Vol] 16 U/L Normal 15-37 [facility] Comment on above: Performed By: #### C KHADARM, CMP #### [facility] [address] [place] [address] [address] Magdalene Mckenzie Bilirubin [Mass/Vol] 0.3 mg/dL Normal 0.2-1.3 [facility] Comment on above: Performed By: #### C KHADARM, CMP #### [facility] [address] [place] [address] Dr. Magdalene Mckenzie Calcium [Mass/Vol] 8.6 mg/dL Normal 8.5-10.1 [facility] Comment on above: Performed By: #### C KHADARM, CMP #### [facility] [address] [place] [address] Dr. Magdalene Mckenzie Chloride [Moles/Vol] 109 mmol/L Critically high 98-107 [facility] Comment on above: Performed By: #### C KHADARM, CMP #### [facility] [address] [place] [address] [address] Magdalene Mckenzie CO2 [Moles/Vol] 29.3 mmol/L Normal 22.0-30.0 [facility] Comment on above: Performed By: #### C KHADARM, CMP #### [facility] [address] [place] [address] Dr. Magdalene Mckenzie Creatinine [Mass/Vol] 1.59 mg/dL Critically high 0.66-1.25 [facility] Comment on above: Performed By: #### C KHADARM, CMP #### [facility] [address] [place] [address] Dr. Magdalene Mckenzie EGFR-AF SLOVAK 54 mL/min/1.73m2 Critically low >=60 [facility] Comment on above: Performed By: #### C KHADARM, CMP #### [facility] [address] [place] [address] Dr. Magdalene Mckenzie EGFR-NON AF SLOVAK 44 mL/min/1.73m2 Critically low >=60 [facility] Comment on above: Performed By: #### C MADM, CMP #### [facility] [address] [place] [address] [address] Magdalene Mckenzie Globulin (S) [Mass/Vol] 2.8 g/dL Normal [facility] Comment on above: Performed By: #### C MADM, CMP #### [facility] [address] [place] [address] [address] Magdalene Mckenzie Glucose [Mass/Vol] 132 mg/dL Critically high 74-106 [facility] Comment on above: Performed By: #### C MADM, CMP #### [facility] [address] [place] [address] [address] Magdalene Mckenzie Potassium [Moles/Vol] 4.1 mmol/L Normal 3.4-5.0 [facility] Comment on above: Performed By: #### C MADM, CMP #### [facility] [address] [place] [address] Dr. Magdalene Mckenzie Protein [Mass/Vol] 6.7 g/dL Normal 6.1-8.2 [facility] Comment on above: Performed By: #### C MADM, CMP #### [facility] [address] [place] [address] Dr. Magdalene Mckenzie Sodium [Moles/Vol] 144 mmol/L Normal 137-145 [facility] Comment on above: Performed By: #### C MADM, CMP #### [facility] [address] [place] [address] Dr. Magdalene Mckenzie Urea nitrogen [Mass/Vol] 20.0 mg/dL Critically high 7.0-18.0 [facility] Comment on above: Performed By: #### C MADM, CMP #### [facility] [address] [place] [address] [address] Magdalene Mckenzie Urea nitrogen/Creatinine [Mass ratio] 12.6 mg/mg [facility] Comment on above: Performed By: #### C MADM, CMP #### [facility] [address] [place] [address] Dr. Magdalene Mckenzie PROTIMEon 02-02-2022 INR Coag (PPP) [Relative time] 1.00 {INR} Normal [facility] Comment on above: Performed By: #### P T, PTT #### [facility] [address] [place] [address] [address] Magdalene Mckenzie INR GUIDELINES SEE BELOW Normal [facility] Comment on above: Result Comment: TERESE RED INR: 2.0 - 3.0 CONDITIONS NOT LISTED BELOW 2.5 - 3.5 FOR PROSTHETIC HEART VALVE REPLACEMENT 2.5 - 3.5 RECURRENT THROMBOSIS Performed By: #### P T, PTT #### [facility] [address] [place], [place] [address] Dr. Magdalene Mckenzie PT Coag (PPP) [Time] 10.8 s Normal 9.0-11.6 [facility] Comment on above: Performed By: #### P T, PTT #### [facility] [address] [place] [id number] Magdalene Mckenzie PTTon 02-02-2022 aPTT Coag (Bld) [Time] 28.5 s Normal 22.3-36.2 [facility] Comment on above: Performed By: #### P T, PTT #### [facility] [address] [place] [address] [address] Magdalene Mckenzie TROPONIN, HIGH SENSITIVITYon 02-02-2022 HSTROP 7.4 pg/mL Normal 4.0-42.2 [facility] Comment on above: Result Comment: CUT- OFF POINTS HAVE BEEN ESTABLISHED BASED ON THE FOURTH UNIVERSAL DEFINITIONS OF MYOCARDIAL INFARCTION. THE UPPER REFERENCE LIMIT (URL) OF TROPONIN, DEFINED THE 99TH PERCENTILE OF cTnI DISTRIBUTION IN A REFERENCE POPULATION, HAS BEEN CONFIRMED THE DECISION THRESHOLD FOR MT DIAGNOSIS. Performed By: #### H STROPN ####[facility] [address] [place], [place] [address]YeDr. Magdalene Mckenzie XR CHEST 1 Von 02-02-2022 XR CHEST 1 V EXAMINATION: XR CHES T 1 V HISTORY: CHEST PAIN, UNSPECIFIED ; left rib pain for 3 weeks; no known injury COMPARISON: XR ribs left with PA chest 12/15/2021 FINDINGS: LUNGS: No significant pulmonary parenchymal abnormalities. VASCULATURE: No increased pulmonary vasculature. PLEURA: No pneumothorax, effusion, or pleural thickening. CARDIAC: No cardiomegaly or cardiac silhouette abnormality. MEDIASTINUM: No visible mass or adenopathy. BONES: No fracture or visible bone lesion. OTHER: Negative. IMPRESSION: 1. No acute cardiopulmonary process. Stable chest. Electronically authenticated by: BEN CAMACHO Date: 2022-02-02 08:59 Normal [facility] Tobacco Screening.on 022 Tobacco use status CP b) No -[facility] DO Work Phone: Danny 11-14-2019 ALT [Catalytic activity/Vol] 56 U/L High 10 - 52 [facility] Comment on above: Result Comment: Cheryl ents treated with Sulfasalazine may generate falsely decreased results for ALT. Performed By: #### A LT #### [address] [address] Donna 11-14-2019 AST [Catalytic activity/Vol] 33 U/L Normal 9 - 39 [facility] Comment on above: Performed By: #### A ST #### [address] [address] CREATININEon 11-14-2019 Creatinine [Mass/Vol] 1.27 mg/dL Normal 0.50 - 1.30 [facility] Comment on above: Performed By: #### C REAT #### [address] [address] Creatinine [Mass/Vol] 58 mL/min/1.73m2 Abnormal >60 [facility] Comment on above: Performed By: #### C REAT #### [address] [address] Creatinine [Mass/Vol] 70 mL/min/1.73m2 Normal >60 [facility] Comment on above: Result Comment: CALC ULATIONS OF ESTIMATED GFR ARE PERFORMED USING THE MDRD STUDY EQUATION FOR THE IDMS-TRACEABLE CREATININE METHODS. CLIN CHEM 2007;53:766-72 Performed By: #### C REAT #### [address] [address] ELECTROLYTE PANELon 11-14-19 20 Anion gap [Moles/Vol] 11 mmol/L Normal 10 - 20 [facility] Comment on above: Performed By: #### E LECT #### [address] [address] Chloride [Moles/Vol] 104 mmol/L Normal 98 - 107 [facility] Comment on above: Performed By: #### E LECT #### [address] [address] HCO3 (Bld) [Moles/Vol] 29 mmol/L Normal 21 - 32 [facility] Comment on above: Performed By: #### E LECT #### [address] [address] Potassium [Moles/Vol] 4.7 mmol/L Normal 3.5 - 5.3 [facility] Comment on above: Performed By: #### E LECT #### [address] [address] Sodium [Moles/Vol] 139 mmol/L Normal 136 - 145 [facility] Comment on above: Performed By: #### E LECT #### [address] [address] LIPID PANEL (CORONARY RISK 2 )on 11-14-2019 Cholesterol [Mass/Vol] 129 mg/dL Normal 0 - 199 [facility] Comment on above: Result Comment: . AGE DESIRABLE BORDERLINE HIGH HIGH 0-19 Y 0 - 169 170 - 199 >/= 200 20-24 Y 0 - 189 190 - 224 >/= 225 >24 Y 0 - 199 200 - 239 >/= 240 All ranges are based on fasting samples. Specific therapeutic targets will vary based on patient-specific cardiac risk. . Pediatric guidelines reference:Pediatrics 2011, 128(S5). Adult guidelines reference: NCEP ATPIII Guidelines, JAYLENE 2001, 258:2486-97 . Venipuncture immediately after or during the administration of Metamizole may lead to falsely low results. Testing should be performed immediately prior to Metamizole dosing. Performed By: #### L IPID #### [address] [address] Cholesterol in HDL [Mass/Vol] 26.0 mg/dL Abnormal [facility] Comment on above: Result Comment: . AGE VERY LOW LOW NORMAL HIGH 0-19 Y < 35 < 40 40-45 ---- 20-24 Y ---- < 40 >45 ---- >24 Y ---- < 40 40-60 >60 . Performed By: #### L IPID #### [address] [address] Cholesterol in LDL [Mass/Vol] 72 mg/dL Normal 0 - 99 [facility] Comment on above: Result Comment: . NEAR BORD AGE DESIRABLE OPTIMAL HIGH HIGH VERY HIGH 0-19 Y 0 - 109 --- 110-129 >/= 130 ---- 20-24 Y 0 - 119 --- 120-159 >/= 160 ---- >24 Y 0 - 99 100-129 130-159 160-189 >/=190 . Performed By: #### L IPID #### [address] [address] Cholesterol in VLDL [Mass/Vol] 31 mg/dL Normal 0 - 40 [facility] Comment on above: Performed By: #### L IPID #### [address] [address] Cholesterol.total/Cho lesterol in HDL [Mass ratio] 5.0 {ratio} Normal [facility] Comment on above: Result Comment: REF VALUES DESIRABLE < 3.4 HIGH RISK > 5.0 Performed By: #### L IPID #### [address] [address] Triglyceride [Mass/Vol] 156 mg/dL High 0 - 149 [facility] Comment on above: Result Comment: . AGE DESIRABLE BORDERLINE HIGH HIGH VERY HIGH 0 D-90 D 19 - 174 ---- ---- ---- 91 D- 9 Y 0 - 74 75 - 99 >/= 100 ---- 10-19 Y 0 - 89 90 - 129 >/= 130 ---- 20-24 Y 0 - 114 115 - 149 >/= 150 ---- >24 Y 0 - 149 150 - 199 200- 499 >/= 500 . Venipuncture immediately after or during the administration of Metamizole may lead to falsely low results. Testing should be performed immediately prior to Metamizole dosing. Performed By: #### L IPID #### [address] [address] UREA NITROGENon 11-14-2019 Urea nitrogen [Mass/Vol] 15 mg/dL Normal - [facility] Comment on above: Performed By: #### U BARBARA #### [address] [address] HIP ARTHROGRAM RIGHTon 10-22 HIP ARTHROGRAM RIGHT [facility] Department of Radiology [address] [place] [address] Patient Name: JANIS GAMING : 1960 Sex: M Age: Race: White Pt. Location: Patient Status: D Ordered Date: 09/23/2019 11:15:00 AM Completed Date: 10/22/2019 11:57 AM Requesting Provider: SABINA MCKEON Attending Provider: SABINA MCKEON Report Copy To: PAUL JARVIS Signs & Symptoms: M25.551 Pain in right hip I10 History: Meka MR Arthrogram Comments: , , , Ordering Provider - SABINA MCKEON MD , Exam: HIP ARTHROGRAM RIGHT HIP ARTHROGRAM RIGHT 10/22/2019 11:57 AM EST SIGNS AND SYMPTOMS: M25.551 Pain in right hip I10 TECHNOLOGIST COMMENTS: Dr. Braga used 0.67 minutes of fluoro time, 3 ml's of Omnipaque 180, 20 ml's of 1% Lidocaine, and 15 ml's of arthrosol solution for a right hip MRI arthrogram QUESTION FOR THE RADIOLOGIST: , , , Ordering Provider - SABINA MCKEON MD , TECHNIQUE: Intra-articular administration of dilute gadolinium CONTRAST: Contrast: 20ml NaCl and .2 Omniscan Solution, 15 milliliter, Intra-articular Contrast: OMNIPAQUE 180 (LOCM), 3 milliliter, Intra-articular Procedure: Risks, benefits, indications, and alternatives to the procedure were explained to the patient. Risks include bleeding and infection. All questions were answered. Both written and verbal informed consent was obtained. Patient was placed in the supine position on the fluoroscopic table. Suitable site overlying the right hip was marked using fluoroscopic guidance and overlying skin prepped and draped in usual sterile fashion. Lidocaine 1% was used for local and deep anesthesia. A 22-gauge 3-1/2 inch spinal needle was advanced under fluoroscopic guidance. There was no complication. Needle was removed and a sterile bandage applied. Patient tolerated the procedure well. IMPRESSION: Intra-articular administration of dilute gadolinium right hip. Procedure done by Dr. Braga No complications and minimal, less than 5mL bleeding. Electronically signed by:Tomasa Braga. Transcribed by: [email or web address], User Resident: Electronically Signed by: TOMASA BRAGA @ 10/22/2019 12:53 PM Normal [facility] Comment on above: Order Comment: , , = ========= , Ordering Provider - SABINA MCKEON MD , MRI HIP W CONTRAST RIGHTon 1 MRI HIP W CONTRAST RIGHT [facility] Department of Radiology [address] [place] [id number] Patient Name: JANIS GAMING : 1960 Sex: M Age: Race: White Pt. Location: Patient Status: D Ordered Date: 09/23/2019 11:15:00 AM Completed Date: 10/22/2019 12:58 PM Requesting Provider: SABINA MCKEON Attending Provider: SABINA MCKEON Report Copy To: PAUL JARVIS Signs & Symptoms: M25.551 Pain in right hip I10 History: Meka, PHONE:[phone],*N [facility] ORTHO F/U APPT. *[employer] STIMULATOR-CARD SCANNED IN MR Arthrogram npc mri / medicare *er Comments: , , , Ordering Provider - SABINA MCKEON MD , Exam: MRI HIP W CONTRAST RIGHT MRI HIP W CONTRAST RIGHT 10/22/2019 12:58 PM EST SIGNS AND SYMPTOMS: M25.551 Pain in right hip I10 TECHNOLOGIST COMMENTS: post R hip arthrogram QUESTION FOR THE RADIOLOGIST: , , , Ordering Provider - SABINA MKCEON MD , PROTOCOL: Images were obtained in the following sequences: 3-plane localizer, axial T1 fat-sat, sagittal T1 fat-sat, coronal T1 fat-sat, axial PD fat-sat, sagittal PD fat-sat, and coronal PD fat-sat. CONTRAST: Contrast: 20ml NaCl and .2 Omniscan Solution, 0/2 milliliter, Intra-articular COMPARISON: None. FINDINGS: Skeleton: Normal bony alignment with no occult pathology. Mild cam convexity is present. Muscles: Well-developed with no injury. Tendons: Insertional tendinitis of the gluteus medius and especially gluteus minimus with small amount of trochanteric bursal fluid. Joint cavity: Distended with contrast. Irregularity along the lateral superior labrum. IMPRESSION: 1. Degenerative labral change superolaterally. Series 3 image 7. 2. Mild irregularity along the adjacent articular cartilage as well Electronically signed by:Kiran Quick. Transcribed by: [email or web address], User Resident: Electronically Signed by: KIRAN QUICK @ 10/22/2019 01:40 PM Normal [facility] Comment on above: Order Comment: , , = ========= , Ordering Provider - SABINA MCKEON MD , HIP RIGHT 1 OR 2 VWS WITH PE LVISon 09-23-2019 HIP RIGHT 1 OR 2 VWS WITH PELVIS [facility] Department of Radiology [address] [place] [id number] Patient Name: JANIS GAMING : 1960 Sex: M Age: Race: White Pt. Location: Patient Status: O Ordered Date: 09/23/2019 10:30:00 AM Completed Date: 09/23/2019 10:32 AM Requesting Provider: SABINA MCKEON Attending Provider: SABINA MCKEON Report Copy To: Signs & Symptoms: M25.551 Pain in right hip I10 History: [place] Comments: , , , Ordering Provider - SABINA MCKEON MD , Exam: HIP RIGHT 1 OR 2 VWS WITH PELVIS HIP RIGHT 1 OR 2 VWS WITH PELVIS 09/23/2019 10:32 AM EST SIGNS AND SYMPTOMS: M25.551 Pain in right hip I10 TECHNOLOGIST COMMENTS: Patient has right hip pain for 2 years. No known trauma. QUESTION FOR THE RADIOLOGIST: , , , Ordering Estela - SABINA MCKEON MD , PROTOCOL: AP(PA) and Lateral views were obtained. COMPARISON: None FINDINGS: Mild joint space narrowing and ossific spurring involving the right hip. There is no evidence of fracture or abnormal sclerosis. There is a stimulator or generator device noted. Small osseous lesion of the right femoral head neck junction could relate to a cam lesion. Correlation for femoral acetabular impingement recommended. IMPRESSION: 1. Mild degenerative changes with no evidence of acute fracture. 2. Cannot exclude small Cam lesion which could relate to femoral acetabular impingement proper setting. Electronically signed by:Rosanna Gomez. Transcribed by: [email or web address], User Resident: Electronically Signed by: ROSANNA GOMEZ @ 09/23/2019 10:52 AM Normal [facility] Comment on above: Order Comment: , , = ========= , Ordering Provider - SABINA MCKEON MD , ALT (SGPT)on 11-01-2018 ALT enzyme act/vol 29 U/L Normal 10-52 [facility] Comment on above: Performed By: #### 1 [id number] #### [facility] [address] [place] [address] AST (SGOT)on 11-01-2018 AST enzyme act/vol 19 U/L Normal 13-39 [facility] Comment on above: Performed By: #### 1 [id number] #### [facility] [address] [place] [address] Creatinineon 11-01-2018 Creatinine mass conc 1.20 mg/dL [facility] Comment on above: Performed By: #### 1 [id number] #### [facility] [address] [place] [address] GFR/1.73 sq M.predicted MDRD vol rate/area mL/min/{1.73_m2} Normal [facility] Comment on above: Result Comment: Inte rpretation for Chronic Kidney Disease: Stages 1&2 >60 Healthy or potential kidney damage. Mild decrease of GFR. Stage 3 30-59 Moderate decrease of GFR. Stage 4 15-29 Severe decrease of GFR. Stage 5 <15 Kidney failure or on dialysis. Performed By: #### 1 [id number] #### [facility] [address] [place] [address] Electrolyte Panelon 11-01-19 19 Anion gap molar conc 8 mmol/L Low 10-20 [facility] Comment on above: Performed By: #### 1 [id number] #### [facility] [address] [place] [address] Chloride molar conc 104 mmol/L Normal 98-107 [facility] Comment on above: Performed By: #### 1 [id number] #### [facility] [address] [place] [address] HCO3 molar conc (Bld) 29 mmol/L Normal 21-32 [facility] Comment on above: Performed By: #### 1 [id number] #### [facility] [address] [place] [address] Potassium molar conc 4.5 mmol/L Normal 3.5-5.1 [facility] Comment on above: Performed By: #### 1 [id number] #### [facility] [address] [place] [address] Sodium molar conc 137 mmol/L Normal 136-145 [facility] Comment on above: Performed By: #### 1 [id number] #### [facility] [address] [place] [address] Lipid Panelon 11-01-2018 Cholesterol in HDL mass conc 25 mg/dL Abnormal [facility] Comment on above: Result Comment: Norm al Mod Risk High Risk 5-9 >48 42-48 <42 10-14 >45 40-45 <40 15-19 >38 34-38 <34 Adult >39 Performed By: #### 1 [id number] #### [facility] [address] [place] [address] Cholesterol in LDL mass conc 55 mg/dL Normal <130 [facility] Comment on above: Performed By: #### 1 [id number] #### [facility] [address] [place] [address] Cholesterol in VLDL mass conc 29 mg/dL Normal <30 [facility] Comment on above: Performed By: #### 1 [id number] #### [facility] [address] [place] [address] Cholesterol mass conc 109 mg/dL Normal <200 [facility] Comment on above: Performed By: #### 1 [id number] #### [facility] [address] [place] [address] Cholesterol.total/Cho lesterol in HDL mass ratio 4.4 {ratio} Normal [facility] Comment on above: Performed By: #### 1 [id number] #### [facility] [address] [place] [address] Triglyceride mass conc 146 mg/dL Normal <150 [facility] Comment on above: Result Comment: 150- 199 Borderline High 200-499 High >500 Very High Performed By: #### 1 [id number] #### [facility] [address] [place] [address] Urea Nitrogenon 11-01-2018 Urea nitrogen mass conc 12 mg/dL Normal 6-23 [facility] Comment on above: Performed By: #### 1 [id number] #### [facility] [address] [place] [address] Vital Signs Date Time Vital Sign Value Performing Clinician Facility 10-31-2024 15:02-0500 Body height 180.3 cm Reynold Flores MANAGER AUDIO Work Phone: [facility] 10-31-2024 15:02-0500 Body mass index (BMI) [Ratio] 33.75 kg/m2 eRynold Flores MANAGER AUDIO Work Phone: [facility] 10-31-2024 15:02-0500 Body temperature 97.11 [degF] Reynold Atkinsonpatrick MANAGER AUDIO Work Phone: [facility] 10-31-2024 15:02-0500 Body weight 109.77 kg Reynold Flores MANAGER AUDIO Work Phone: [facility] 10-31-2024 15:02-0500 Diastolic blood pressure 66 mm[Hg] Reynold Flores MANAGER AUDIO Work Phone: [facility] 10-31-2024 15:02-0500 Heart rate 72 /min Reynold Flores MANAGER AUDIO Work Phone: [facility] 10-31-2024 15:02-0500 Respiratory rate 18 /min Reynold Flores MANAGER AUDIO Work Phone: [facility] 10-31-2024 15:02-0500 SaO2% (BldA) [Mass fraction] 97 % Reynold Flores MANAGER AUDIO Work Phone: [facility] 10-31-2024 15:02-0500 Systolic blood pressure 132 mm[Hg] Reynold Flores MANAGER AUDIO Work Phone: [facility] 09-10-2024 10:58-0500 Body height 180.3 cm Abdi Ortiz MD Work Phone: [facility] 09-10-2024 10:58-0500 Body mass index (BMI) [Ratio] 34.73 kg/m2 Abdi Ortiz MD Work Phone: [facility] 09-10-2024 10:58-0500 Body weight 112.95 kg Abdi Ortiz MD Work Phone: [facility] 09-10-2024 10:58-0500 Diastolic blood pressure 64 mm[Hg] Abdi Ortiz MD Work Phone: [facility] 09-10-2024 10:58-0500 Heart rate 69 /min Abdi Ortiz MD Work Phone: [facility] 09-10-2024 10:58-0500 Respiratory rate 16 /min Abdi Ortiz MD Work Phone: [facility] 09-10-2024 10:58-0500 Systolic blood pressure 104 mm[Hg] Abdi Ortiz MD Work Phone: [facility] 08-20-2024 12:49-0400 Body height 180.3 cm Flavia Lowe PA Work Phone: [facility] 08-20-2024 12:49-0400 Body mass index (BMI) [Ratio] 33.61 kg/m2 Flavia Lowe PA Work Phone: [facility] 08-20-2024 12:49-0400 Body weight 109.32 kg Flavia Lowe PA Work Phone: [facility] 08-20-2024 12:49-0400 Diastolic blood pressure 82 mm[Hg] Flavia Lowe PA Work Phone: [facility] 08-20-2024 12:49-0400 Systolic blood pressure 124 mm[Hg] Flavia Lowe PA Work Phone: [facility] 02-07-2024 10:00-0400 Body height 180.3 cm Chang Barba DO Work Phone: [facility] 02-07-2024 10:00-0400 Body mass index (BMI) [Ratio] 32.36 kg/m2 Chang Barba DO Work Phone: [facility] 02-07-2024 10:00-0400 Body weight 105.23 kg Chang Barba DO Work Phone: [facility] 02-07-2024 10:00-0400 Diastolic blood pressure 68 mm[Hg] Chang Barba DO Work Phone: [facility] 02-07-2024 10:00-0400 Heart rate 60 /min Chang Barba DO Work Phone: [facility] 02-07-2024 10:00-0400 Systolic blood pressure 110 mm[Hg] Chang Barba DO Work Phone: [facility] 08-07-2023 12:00-0400 Body height 177.8 cm Dary Cuevas Other [employer] Other 08-07-2023 12:00-0400 Body mass index (BMI) [Ratio] 33.97 kg/m2 Dary Cuevas Other [employer] Other 08-07-2023 12:00-0400 Body temperature 97.1 [degF] Dary Cuevas Other [employer] Other 08-07-2023 12:00-0400 Body weight 107.41 kg Dary Cuevas Other [employer] Other 08-07-2023 12:00-0400 Diastolic blood pressure 73 mm[Hg] Dary Cuevas Other [employer] Other 08-07-2023 12:00-0400 Respiratory rate 18 /min Dary Cuevas Other [employer] Other 08-07-2023 12:00-0400 SaO2% (BldA) [Mass fraction] 96 % Dary Campbellmond Other [employer] Other 08-07-2023 12:00-0400 Systolic blood pressure 107 mm[Hg] Dary Cuevas Other [employer] Other 02-14-2023 10:09-0400 Body height 177.8 cm Paul P House Work Phone: [facility] DO Work Phone: 02-14-2023 10:09-0400 Body mass index (BMI) [Ratio] 35.15 kg/m2 Paul P House Work Phone: [facility] DO Work Phone: 02-14-2023 10:09-0400 Body surface area Derived from formula 2.28 m2 Paul P House Work Phone: [facility] DO Work Phone: 02-14-2023 10:09-0400 Body weight 111.13 kg Paul P House Work Phone: [facility] DO Work Phone: 02-14-2023 10:09-0400 Diastolic blood pressure 74 mm[Hg] Paul P House Work Phone: [facility] DO Work Phone: 02-14-2023 10:09-0400 Heart rate 66 /min Paul P House Work Phone: [facility] DO Work Phone: 02-14-2023 10:09-0400 Systolic blood pressure 110 mm[Hg] Paul P House Work Phone: [facility] DO Work Phone: 09-22-2022 15:14-0500 Body height 177.8 cm Katty Jean Baptiste MD Work Phone: [facility] 09-22-2022 15:14-0500 Body weight 110.59 kg Katty Jean Baptiste MD Work Phone: [facility] 11-17-2021 11:54-0500 Diastolic blood pressure 74 mm[Hg] Paul P House Work Phone: [facility] DO Work Phone: 11-17-2021 11:54-0500 Systolic blood pressure 138 mm[Hg] Paul P House Work Phone: [facility] DO Work Phone: 11-17-2021 11:49-0500 Body height 177.8 cm Paul P House Work Phone: [facility] DO Work Phone: 11-17-2021 11:49-0500 Body mass index (BMI) [Ratio] 36.02 kg/m2 Paul P House Work Phone: [facility] DO Work Phone: 11-17-2021 11:49-0500 Body surface area Derived from formula 2.3 m2 Paul P House Work Phone: [facility] DO Work Phone: 11-17-2021 11:49-0500 Body weight 113.85 kg Paul P House Work Phone: [facility] DO Work Phone: 11-17-2021 11:49-0500 Diastolic blood pressure 90 mm[Hg] Paul P House Work Phone: [facility] DO Work Phone: 11-17-2021 11:49-0500 Heart rate 82 /min Paul P House Work Phone: [facility] DO Work Phone: 11-17-2021 11:49-0500 Systolic blood pressure 144 mm[Hg] Paul P [employer] Work Phone: [facility] DO Work Phone: Encounters Encounter Date Encounter Type Care Provider Facility Start: 10-31-2024 End: 10-31-2024 Office outpatient visit 15 minutes Reynold Flores MANAGER AUDIO Work Phone: [facility] Comment on above: Vertigo (Primary Dx) ; Degeneration of thoracic intervertebral disc; Thoracic spondylosis without myelopathy; Lumbosacral spondylosis without myelopathy Start: 10-31-2024 End: 10-31-2024 ambulatory REYNOLD MCFARLANETRICK Not Available Start: 10-31-2024 End: 10-31-2024 Bamboo flowsheet Reynold Mcfarlanetrick MANAGER AUDIO Work Phone: [facility] Start: 10-31-2024 End: 10-31-2024 Bamboo flowsheet Reynold Atkinsonpatrick MANAGER AUDIO Work Phone: [facility] Start: 10-31-2024 End: 10-31-2024 Telephone encounter Flavia CHIN Work Phone: [facility] Start: 09-18-2024 End: 09-18-2024 Telephone encounter Abdi Ortiz MD Work Phone: [facility] Start: 09-10-2024 End: 09-10-2024 Bamboangel Ortiz MD Work Phone: [facility] Start: 09-10-2024 End: 09-10-2024 Bamboo brunilda Ortiz MD Work Phone: [facility] Start: 09-10-2024 End: 09-10-2024 Office outpatient visit 40 minutes Abdi Ortiz MD Work Phone: [facility] Comment on above: Type 2 diabetes dipika itus with hyperglycemia, with long-term current use of insulin ([facility]) (Primary Dx); Presence of insulin pump (external) (internal); Encounter for fitting and adjustment of insulin pump; 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 (CMS/HCC); Vitamin D deficiency, unspecified; Mixed hyperlipidemia (CMS/HCC); Class 1 obesity due to excess calories with serious comorbidity and body mass index (BMI) of 34.0 to 34.9 in adult; Hypoglycemia Start: 09-10-2024 End: 09-10-2024 ambulatory ABDI ORTIZ Not Available Start: 08-20-2024 End: 08-20-2024 Office outpatient visit 15 minutes Flavia CHIN Work Phone: [facility] Comment on above: Essential tremor Start: 08-20-2024 End: 08-20-2024 ambulatory FLAVIA FRAUSTO Not Available Start: 05-29-2024 End: 05-29-2024 ambulatory FLAVIA FRAUSTO Not Available Start: 05-27-2024 End: 05-27-2024 ambulatory REYNOLD FLORES Not Available Start: 04-04-2024 End: 04-04-2024 ambulatory EDDIE BRAXTON Not Available Start: 04-02-2024 End: 04-02-2024 ambulatory BEN BROWN Not Available Start: 03-04-2024 Patient encounter procedure Flavia Frausto PA Work Phone: [facility] Start: 03-04-2024 End: 03-04-2024 ambulatory SHAIKH HOLA Not Available Start: 02-07-2024 End: 02-07-2024 ambulatory CHANG BARBA [facility] Ambulatory Start: 02-07-2024 End: 02-07-2024 Office outpatient visit 15 minutes Chang Barba DO Work Phone: [facility] Comment on above: Two-vessel coronary artery disease; Ischemic cardiomyopathy; History of MT (myocardial infarction); History of PTCA; Mixed hyperlipidemia; Essential hypertension; Type 2 diabetes mellitus without complication, with long-term current use of insulin (Multi); BMI 32.0-32.9,adult Start: 01-03-2024 End: 01-03-2024 ambulatory SHAIKH HOLA Not Available Start: 08-07-2023 End: 08-07-2023 ambulatory Dary Cuevas Other [facility] [employer] Other Start: 08-07-2023 Office outpatient vi sit 15 minutes Dary Cuevas [facility] Start: 02-14-2023 ambulatory Chang Barba Facilit y: Start: 02-14-2023 Office outpatient vi sit 15 minutes Paul Carey House Work Phone: [facility] DO Work Phone: Start: 12-31-2022 End: 03-11-2023 ambulatory HOLLOWAY H FAWWAD Facility:[facility] Start: 11-29-2022 Telephone encounter Paul Jarvis Work Phone: [place] [address] DO Work Phone: Start: 11-08-2022 Rx Renewal Paul miller Work Phone: [place] [address] DO Work Phone: Start: 09-28-2022 End: 09-29-2022 ambulatory HOLLOWAY H FAWWAD Facility:[facility] Start: 09-22-2022 End: 09-22-2022 ambulatory KATTY JEAN BAPTISTE Facility:[facility] Start: 09-22-2022 End: 09-22-2022 Patient encounter procedure Katty Jean Baptiste MD Work Phone: Pain Management Comment on above: Thoracic radiculitis (Primary Dx); Degeneration of thoracic intervertebral disc; Costochondral pain; Diabetes 1.5, managed as type 1 ([facility]) Start: 08-25-2022 End: 08-25-2022 ambulatory KATTY JEAN BAPTISTE Facility:[facility] Start: 08-24-2022 End: 08-24-2022 ambulatory HOLLOWAY H ANATOLYWAD Facility:[facility] Start: 08-01-2022 Rx Renewal Paul miller Work Phone: [place] [address] DO Work Phone: Start: 06-22-2022 Telephone encounter Katty Jean Baptiste MD Work Phone: Pain Management Comment on above: Appointment (Pain ma nagement) Start: 04-28-2022 End: 04-28-2022 ambulatory HOLLOWAY H FAWWAD Facility:[facility] Start: 04-27-2022 End: 04-27-2022 ambulatory HOLLOWAY H FAWWAD Facility:[facility] Start: 03-29-2022 End: 03-30-2022 ambulatory HOLLOWAY H FAWWAD Facility:[facility] Start: 03-19-2022 End: 03-19-2022 ambulatory HOLLOWAY H FAWWAD Facility:[facility] Start: 02-02-2022 End: 02-02-2022 ambulatory SHAIKH Clara SIMENTAL Facility:[facility] Start: 01-14-2022 End: 01-15-2022 ambulatory SHAIKH Clara SIMENTAL Facility:[facility] Start: 11-17-2021 FUV, Provider: Chang Barba, Status: Pen, Time: 11:00 AM Paul P [employer] Work Phone: [facility] DO Work Phone: Start: 11-17-2021 Office outpatient vi sit 15 minutes Paul P House Work Phone: [facility] DO Work Phone: Start: 11-15-2021 Rx Renew[facility] Work [facility]: Start: 08-10-2021 Rx Renewal Paul P Hous e Work Phone: [facility] [place] Work Phone: Start: 08-09-2021 Rx Renewal Paul P Hous e Work Phone: [facility] DO Work Phone: Start: 11-01-2018 Patient encounter procedure PROVIDER UNKNOWN Facility:[id number] Procedures Date Procedure Procedure Detail Performing Clinician Start: 09-10-2024 Gluc bld gluc mntr d ev cleared fda spec home use Abdi Ortiz MD Work Phone: Start: 02-07-2024 Lipid panel CHANG MARSHALL Start: 08-03-2023 History of percutane ous transluminal coronary angioplasty History of PTCA Chang Barba DO Work Phone: Start: 11-19-2020 Lipid 1996 panel - S tyler or Plasma Chang Barba DO Work Phone: Appendectomy Paul P [employer] Work Phone: History of percutane ous transluminal coronary angioplasty History of PTCA Paul P [employer] Work Phone: History of percutane ous transluminal coronary angioplasty History of [facility] Chang Barba DO Work Phone: Procedure on back Paul Jarvis Work Phone: Surgical procedure Paul Jarvis Work Phone: Comment on above: Stent Indications; NEGATED: Highlighted row has not occurred! Total colonoscopy Paul Jarvis Work Phone: Plan of Treatment Date Care Activity Detail Author Start: 01-02-2026 Glaucoma screening Diabetes: R etinopathy Screening [facility] Healthcare Start: 03-04-2025 Medicare Annual Wellness (AWV) Medicare Annual Wellness (AWV) [facility] Start: 02-06-2025 End: 02-06-2025 Patient encounter procedure 02/06/2025 9:30 AM EDT Office Visit [facility] [address] [facility] [address] [place] [address] Chang Barba DO [address] [facility] [place], [place] [id number] [facility] Start: 01-30-2025 End: 01-30-2025 Patient encounter procedure 01/30/2025 11:00 AM EDT Office Visit [facility] [address] [place] [address] Reynold Flores NP [address] [place] [address] [facility] Start: 12-21-2024 Screening for malign ant neoplasm of colon [facility] Start: 12-11-2024 Hemoglobin A1c measurement Diabetes: Hemoglobin A1C [facility] Start: 12-10-2024 End: 12-10-2024 Patient encounter procedure 12/10/2024 10:50 AM EST Office Visit [facility] [address] [place] [address] Abdi Ortiz MD [address] [place] [address] [facility] Start: 12-09-2024 End: 02-06-2025 Lipid 1996 panel - Serum or Plasma Lipid Panel Lab Routine Two-vessel coronary artery disease Mixed hyperlipidemia Expected: 12/09/2024 (Approximate), Expires: 02/06/2025 [facility] Service Area Work Phone: Comment on above: Expected: 12/09/2024 (Approximate), Expires: 02/06/2025 Start: 11-12-2024 End: 11-12-2024 Patient encounter procedure [facility] Start: 10-31-2024 End: 10-31-2024 Patient encounter procedure 10/31/2024 3:00 PM EST Office Visit [facility] [address] [place] [phone] Reynold Florse, NOÉ [address] [place] [phone] Arrived [facility] Comment on above: Arrived Start: 09-11-2024 End: 09-11-2024 Patient encounter procedure 09/11/2024 10:00 AM EST Office Visit [facility] [address] [place] [place] [phone] Reynold Flores, NOÉ [address] [place] [phone] [facility] Start: 09-10-2024 End: 09-10-2024 Patient encounter procedure [facility] Comment on above: Type 2 diabetes dipika itus with hyperglycemia, with long-term current use of insulin ([facility]) Start: 06-23-[address] [facility] Start: 02-07-2024 FUV, Provider: Chang Barba, Status: Pen, Time: 9:50 AM FUV, Provider: Chang Barba, Status: Pen, Time: 9:50 AM [facility] DO Work Phone: Start: 06-23-2023 COVID-19 Vaccine ( season) COVID-19 Vaccine ( season) [facility] Start: 02-14-2023 FUV, Provider: Chang Barba, Status: Pen, Time: 10:00 AM FUV, Provider: Chang Barba, Status: Pen, Time: 10:00 AM [facility] 250 DO Work Phone: Start: 11-16-2022 FUV, Provider: Chang Barba, Status: Pen, Time: 11:00 AM FUV, Provider: Chang Barba, Status: Pen, Time: 11:00 AM [facility] DO Work Phone: Start: 06-23-2022 Influenza vaccination INFLUENZA (#1) [facility] Start: 11-26-2021 COVID-19 VACCINE (4 - Booster for Pfizer series) COVID-19 VACCINE (4 - Booster for Pfizer series) [facility] Start: 11-19-2021 Lipid panel Lipid Panel [facility] Start: 11-17-2021 FUV, Provider: Chang Barba, Status: Pen, Time: 11:00 AM FUV, Provider: Chang Barba, Status: Pen, Time: 11:00 AM [facility] DO Work Phone: Start: 10-23-2021 DEPRESSION ASSESSMENT DEPRESSION ASS ESSMENT [facility] Start: 09-20-2021 COVID-19 VACCINE (4 - Booster for Pfizer series) COVID-19 VACCINE (4 - Booster for Pfizer series) [facility] Start: 07-26-2017 Pneumococcal Vaccine : 65+ Years (2 of 2 - PCV) Pneumococcal Vaccine: 65+ Years (2 of 2 - PCV) [facility] Start: 07-26-2017 Pneumococcal Vaccine : Pediatrics (0 to 5 Years) and At-Risk Patients (6 to 64 Years) (2 of 2 - PCV) Pneumococcal Vaccine: Pediatrics (0 to 5 Years) and At-Risk Patients (6 to 64 Years) (2 of 2 - PCV) [facility] Start: 2014 PROSTATE CANCER SCREENING DISCUSSION PROSTATE CANCER SCREENING DISCUSSION [facility] Start: 2009 SHINGRIX VACCINE (1 of 2) SHINGRIX VACCINE (1 of 2) [facility] Start: 2009 Zoster Vaccines (1 o f 2) Zoster Vaccines (1 of 2) [facility] Start: 2004 COLOGUARD (FIT-DNA) COLOGUARD (FIT-D NA) [facility] Start: [address] [facility] Start: 2004 COLORECTAL CANCER SCREENING COLORECTAL CANCER SCREENING [facility] Start: [address] COLONOGRAPHY [facility] Start: 2004 DIABETES SCREEN DIABETES SCREEN [facility] Start: 2004 FECAL OCCULT BLOOD FECAL OCCULT BLOO D [facility] Start: 2004 SIGMOIDOSCOPY SIGMOIDOSCOPY [facility] Start: 1994 LIPID SCREEN LIPID SCREEN [facility] Start: 1981 DTaP/Tdap/Td Vaccine s (1 - Tdap) DTaP/Tdap/Td Vaccines (1 - Tdap) [facility] Start: 1978 Urine microalbumin profile DTAP,TDAP,TD (1 - Tdap) 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 Start: 1977 Hepatitis B surface antibody level LDL CHOLESTEROL [facility] Start: 1977 HEPATITIS C SCREENING HEPATITIS C [facility] Start: 1977 Hepatitis C screening Hepatitis C [facility] Start: 1977 HIV SCREENING HIV SCREENING [facility] Start: 1971 Adult depression screening assessment DEPRESSION SCREENING [facility] Start: 1969 3 comp foot exam completed DIABETIC FOOT EXAM [facility] Start: 1969 Diabetic foot examination Diabetes: Foot Exam [facility] Start: 1969 Glaucoma screening Diabetes: R etinopathy Screening [facility] Start: 1969 Hepatitis B screening URINE ALBUMIN:CREATININE RATIO [facility] Start: 1969 Hepatitis C antibody , confirmatory test DILATED RETINAL EXAM [facility] Start: 1965 PNEUMOCOCCAL (1 - PCV) PNEUMOCOCCAL (1 - PCV) [facility] Start: 1964 Hemoglobin A1c/Hemoglobin.total in Blood HBA1C [facility] Start: 1960 MMR Vaccines (1 of 1 - Standard series) MMR Vaccines (1 of 1 - Standard series) [facility] Start: 1959 Hemoglobin A1c measurement Diabetes: Hemoglobin A1C [facility] Start: 1959 HIV screening HIV Screening [facility] Start: 1959 Medicare Annual Wellness Visit Medicare Annual Wellness Visit (AWV) [facility] Start: 1959 Screening for malign ant neoplasm of colon [facility] Immunizations Immunization Date Immunization Notes Care Provider Parth becerra 07-26-2021 Pfizer-BioNTech COVI D-19 Vacc 30 MCG/0.3ML Intramuscular Suspension [employer] Work Phone: [facility] [employer] DO Work Phone: 01-21-2021 Pfizer-Solus BiosystemsNTech COVI D-19 Vacc 30 MCG/0.3ML Intramuscular Suspension [employer] Work Phone: [facility] [employer] DO Work Phone: 12-31-2020 Pfizer-Solus BiosystemsNTech COVI D-19 Vacc 30 MCG/0.3ML Intramuscular Suspension [employer] Work Phone: [facility] [employer] DO Work Phone: 08-23-2019 influenza virus vacc ine, unspecified formulation [employer] Work Phone: [facility] [employer] 250 DO Work Phone: 07-26-2016 influenza virus vacc ine, unspecified formulation [employer] Work Phone: [facility] [employer] DO Work Phone: 07-26-2016 pneumococcal polysaccharide vaccine, 23 valent [employer] Work Phone: [facility] 250 DO Work Phone: 08-23-2015 influenza virus vacc ine, unspecified formulation Paul P Bethany Work Phone: [place] [address] DO Work Phone: 06-08-2015 influenza, injectabl e, quadrivalent, preservative free Paul P Bethany Work Phone: [place] [address] DO Work Phone: 06-08-2015 influenza virus vacc ine, unspecified formulation Flavia Frausto PA Work Phone: [facility] 08-28-2014 influenza virus vacc ine, unspecified formulation Paul [facility] Work Phone: [place] [address] DO Work Phone: 10-23-2007 pneumococcal polysaccharide vaccine, 23 valent Paul [facility] Work Phone: [place] [address] DO Work Phone: Payers Date Payer Category Payer Medicare DEVOTED MEDICARE DEVOTED HE[employer] [id number] 2021-Present [phone] [address] [place] [address] O [id number] 2021 Medicare (Managed Care) DEVOTED HEALTH [id number] 2021 Unknown 2021 Unknown [id number] 1959 Unknown [id number] 2.16.840.1.893229.3.579. 2.355 1959 Unknown [id number] 2.16.840.1.614568.3.579. 2.593 1959 Unknown [id number] 2.16.840.1.228880.3.579. 2.593 1959 Unknown [id number] 2.16.840.1.948924.3.579. 2.593 1959 Unknown [id number] 2.16.840.1.632955.3.579. 2.593 1959 Unknown [id number] 2.16.840.1.577352.3.579. 2.593 1959 Unknown [id number] 2.16.840.1.932785.3.579. 2.593 1959 Unknown [id number] 2.16.840.1.663778.3.579. 2.593 1959 Unknown [id number] 2.16.840.1.185687.3.579. 2.593 1959 Unknown [id number] 2.16.840.1.828919.3.579. 2.593 1959 Unknown [id number] 2.16.840.1.325479.3.579. 2.593 1959 Unknown [id number] 2.16.840.1.280193.3.579. 2.356 1959 Unknown [id number] 2.16.840.1.484534.3.579. 2.1244 1959 Unknown [id number] 2.16.840.1.494200.3.579. 2.1259 1959 Unknown [id number] 2.16.840.1.041092.3.579. 2.1259 1959 Unknown [id number] 2.16.840.1.695390.3.579. 2.1259 1959 Unknown [id number] 2.16.840.1.820192.3.579. 2.1259 1959 Unknown [id number] 2.16.840.1.255452.3.579. 2.9 1959 Unknown [id number] 2.16.840.1.626664.3.579. 2.9 1959 Unknown [id number] 2.16.840.1.947037.3.579. 2.1258 1959 Unknown [id number] 2.16.840.1.854589.3.579. 2.9 1959 Unknown [id number] 2.16.840.1.720834.3.579. 2.1259 Medicare [id number] Social History Date Type Detail Facility Start: 08-03-2023 End: 05-27-2024 No illicit drug use No illicit drug use [place] [address] DO Work Phone: Comment on above: very little.; decafe ice tea 1 24o z daily. Diet pop 1 can once a weekly.; Tobacco smoking status UTIS Tobacco smoking consumption unknown [facility] Start: 1960 Sex Assigned At Not on file [facility] Start: 05-14-2022 End: 02-07-2024 Exposure to SARS-CoV-2 (event) Not sure [facility] Start: 09-22-2022 End: 01-03-2024 Tobacco smoking status [facility] Never smoked tobacco [facility] Start: 09-22-2022 End: 01-03-2024 Tobacco use and exposure Smokeless tobacco non-user [facility] Start: 09-22-2022 End: 09-05-2024 Alcohol intake Lifetime non-drinker (finding) [facility] Start: 08-03-2023 End: 05-27-2024 Sex Assigned At [facility] [employer] Other Start: 02-07-2024 Alcoholic beverage intake Current drinker of alcohol (finding) [facility] Work Phone: Start: 08-03-2023 Alcohol Comment very little [facility] Work Phone: NEGATED: Highlighted rowStart: NINF History of tobacco use Passive smoker [facility] Clinical Notes 01-14-2022 to 10-31-2024 Telephone Encounter - GIUSEPPE Parks - 10/31/2024 4:24 PM ESTTelephone Encounter - GIUSEPPE Parks - 10/31/2024 4:24 PM ESTTelephone Encounter - Lali Dickey MA - 10/31/2024 4:16 PM EST Note Date & Type Note Facility 10-31-2024 Telephone encounter Note Sent. [facility] 10-31-2024 Miscellaneous Notes Sent. Called and spoke to patient, he did have CT of brain done, he states he had the disc but forgot it in [place]. He would like to have a steroid course sent to [facility] in [place] Patient called in and states that he has had a case of Vertigo since 10/01 and has an appt on 11/12 and is wondering if there is anything to be done in the meantime? Thank you! documented in this encounter [facility] 10-31-2024 Telephone encounter Note Called and spoke to patient, he did have CT of brain done, he states he had the disc but forgot it in [place]. He would like to have a steroid course sent to [facility] in [place] [facility] 10-31-2024 Telephone encounter Note Patient called in and states that he has had a case of Vertigo since 10/01 and has an appt on 11/12 and is wondering if there is anything to be done in the meantime? Thank you! [facility] 10-31-2024 History of Presen t illness Narrative Associated Problem(s): Thoracic spondylosis without myelopathy Was following with PM several years ago, stopped going due to feeing like he was no longer seeing results. Is requesting to go back to different PM at this time for back pain,. Referral sent. Associated Problem(s): Vertigo Was in [place] helping a friend move, woke up and developed vertigo. Reports room was spinning, experienced vomiting. Episode lasted for 2 hours. Denies having any ear infection or cold recently. Went to ER, was treated for vertigo with Meclizine. States episodes are now happening 2-3 times per week now and episodes are brief, lasting 10 minutes on average. Is following with Dr. Brown [facility]- has not updated them, of this, advised patient to call Dr. Zazueta office. Provided pt with information on [employer]. Images from the original note were not included. Subjective Patient ID: Janis Gaming is a 63 y.o. male who presents for Dizziness. [facility] Neurology- Dr. Brown Endocrinology- Dr. Ortiz Was in [place] helping a friend move, woke up and developed vertigo. Reports room was spinning, experienced vomiting. Episode lasted for 2 hours. Denies having any ear infection or cold recently. Went to ER, was treated for vertigo with Meclizine. States episodes are now happening 2-3 times per week now and episodes are brief, lasting 10 minutes on average. Is following with Dr. Brown [facility]- has not updated them, of this, advised patient to call Dr. Haydencts office. Provided pt with information on [employer]. Was following with PM several years ago, stopped going due to feeing like he was no longer seeing results. Is requesting to go back to different PM at this time for back pain,. Referral sent. Review of Systems Constitutional: Negative for activity change, appetite change, chills, diaphoresis, fatigue, fever and unexpected weight change. HENT: Negative for congestion, ear pain, rhinorrhea, sinus pressure, sinus pain, sneezing, sore throat, trouble swallowing and voice change. Eyes: Negative for visual disturbance. Respiratory: Negative for cough, chest tightness, shortness of breath and wheezing. Cardiovascular: Negative for chest pain, palpitations and leg swelling. Gastrointestinal: Negative for abdominal distention, abdominal pain, blood in stool, constipation, diarrhea and vomiting. Genitourinary: Negative for decreased urine volume, dysuria, flank pain, frequency, hematuria and urgency. Musculoskeletal: Positive for back pain. Negative for arthralgias, gait problem, joint swelling and myalgias. Skin: Negative for rash. Neurological: Positive for dizziness. Negative for tremors, syncope, weakness, light-headedness and headaches. Psychiatric/Behavioral: Negative for decreased concentration and suicidal ideas. The patient is not nervous/anxious. Hematological: Does not bruise/bleed easily. Endocrine: Negative for cold intolerance, heat intolerance, polydipsia, polyphagia and polyuria. Objective Physical Exam Vitals reviewed. Constitutional: Appearance: Normal appearance. HENT: Right Ear: Tympanic membrane normal. Left Ear: Tympanic membrane normal. Nose: Nose normal. Mouth/Throat: Mouth: Mucous membranes are moist. Pharynx: Oropharynx is clear. Eyes: Pupils: Pupils are equal, round, and reactive to light. Cardiovascular: Rate and Rhythm: Normal rate and regular rhythm. Pulses: Normal pulses. Heart sounds: Normal heart sounds. Pulmonary: Effort: Pulmonary effort is normal. Breath sounds: Normal breath sounds. Abdominal: General: Abdomen is flat. Bowel sounds are normal. Palpations: Abdomen is soft. Musculoskeletal: General: Normal range of motion. Skin: General: Skin is warm and dry. Capillary Refill: Capillary refill takes less than 2 seconds. Neurological: General: No focal deficit present. Mental Status: He is alert and oriented to person, place, and time. Psychiatric: Mood and Affect: Mood normal. Behavior: Behavior normal. Assessment/Plan Problem List Items Addressed This Visit Degeneration of thoracic intervertebral disc Relevant Orders Ambulatory referral to Pain Medicine Lumbosacral spondylosis without myelopathy Relevant Orders Ambulatory referral to Pain Medicine Thoracic spondylosis without myelopathy Was following with PM several years ago, stopped going due to feeing like he was no longer seeing results. Is requesting to go back to different PM at this time for back pain,. Referral sent. Relevant Orders Ambulatory referral to Pain Medicine Vertigo - Primary Was in [place] helping a friend move, woke up and developed vertigo. Reports room was spinning, experienced vomiting. Episode lasted for 2 hours. Denies having any ear infection or cold recently. Went to ER, was treated for vertigo with Meclizine. States episodes are now happening 2-3 times per week now and episodes are brief, lasting 10 minutes on average. Is following with Dr. Brown [facility]- has not updated them, of this, advised patient to call Dr. Zazueta office. Provided pt with information on [employer]. Relevant Medications meclizine (Antivert) 25 MG tablet documented in this encounter [facility] 10-31-2024 Instructions Reynold Flores NP - 10/31/2024 3:[address] Zazueta office and advise them on the Vertigo- make an appointment to see them BANDAR! Utilize [employer] print outs for home exercises. documented in this encounter [facility] 09-18-2024 Telephone encounter Note I DID SEND A REFILL PT MAY NEED A PRIOR AUTHORIZATION THANKS [facility] 09-18-2024 Miscellaneous Notes I DID SEND A REFILL PT MAY NEED A PRIOR AUTHORIZATION THANKS Please refill omnipod dash pods please and thank you. Pt is going out of town for thanksgiving and requested through pharmacy. Please send BANDAR. Thank you! documented in this encounter [facility] 09-18-2024 Telephone encounter Note Please refill omnipod dash pods please and thank you. Pt is going out of town for thanksgiving and requested through pharmacy. Please send BANDAR. Thank you! [facility] 09-10-2024 History of Presen t illness Narrative Janis Gaming is a 63 y.o. male Abdi Ortiz MD presents with chief complaint of Diabetes and Follow-up HPI: Interim History: 08/2024 Follow-up visit of 09/10/2024 for type 2 diabetes, A1c in the office 6.2, bg 155. he is off Victoza 1.8, on pump basal 1.5 unit/h, ICR 1:4, ISS 1:25. CGM avg 14 days 125, 30 days 117 with hypoglycemia. Interim History: 02/2024 Follow-up visit of 03/12/2024 for type 2 diabetes, A1c in the office 6.2, bg 118. he is on Victoza 1.8, on pump basal 1.5 unit/h, ICR 1:4, ISS 1:25. CGM 0-82-18 AVG 139. Interim History: 08/2023 Follow-up visit of 09/12/2023 for type 2 diabetes, A1c in the office 6.4, bg 129. he is on Victoza 1.8, on pump basal 1.5 unit/h, ICR 1:4, ISS 1:25. CGM 4-81--14 AVG 132. Interim History: 01/2023 Follow-up visit of 02/14/2023 for type 2 diabetes, A1c in the office 6.3, bg 178. he is on Victoza 1.8, on pump basal 1.5 unit/h, ICR 1:4, ISS 1:25. CGM 4-91-5 AVG 119 Interim History: 10/2022 Follow-up visit of 11/15/2022 for type 2 diabetes, A1c in the office 8.4 , bg 289. he is on Victoza 1.8, on glimepiride 2 mg 2 tablets twice a day, off pump basal 1.5 unit/h, ICR 1:4, ISS 1:25. CGM 32-68% AVG 222. Interim History: 05/2022. Follow-up visit of 06/14/2022 for type 2 diabetes, A1c in the office 7.2, bg 205. he is on Victoza 1.8, off glimepiride 2 mg 2 tablets twice a day, pump basal 1.5 unit/h, ICR 1:4, ISS 1:25. TDD 69, 44/56% Interim History: 11/2021. Follow-up visit of 11/24/2021 for type 2 diabetes, A1c in the office 7.5, bg 158. he is on Victoza 1.8, glimepiride 2 mg 2 tablets twice a day, pump for 4 weks basal 1.5 unit/h, ICR 1:5, ISS 1:25. TDD 74, 45/55%, CGM 0-59-41 , avg 175 Interim History: 08/2021. Follow-up visit of 08/23/2021 for type 2 diabetes, A1c in the office 7.1, bg 196. he is on Victoza 1.8, glimepiride 2 mg 2 tablets twice a day, NovoLog 5 units ac prn. off for 2 weeks. CGM 0-48-52, avg 186 Interim History: 04/2021. Follow-up visit of 04/28/2021 for type 2 diabetes, unable to do A1c in the office. Blood sugar is 134. he is on Victoza 1.8, glimepiride 2 mg 2 tablets twice a day, NovoLog 5 units ac prn. Interim History: 12/2020. Follow-up visit of 12/23/2020 for type 2 diabetes, A1c in the office 7.7. Blood sugar is 159. he is on Victoza 1.8, glimepiride 2 mg 2 tablets twice a day, CGM 7 DAYS 142, 90 DAYS 199, was on steroids injection for his back on 10/2020 Interim History: 05/2020. Follow-up visit of 06/11/2020 for type 2 diabetes, unable to do A1c in the office. Blood sugar is 209. Lab done; BUN 19, creatinine 1.3, GFR 56, total cholesterol 121, HDL 24, triglycerides 94, LDL 78, vitamin D 33, albumin/creatinine 7, C-peptide 7.3 and he is on Victoza 1.8, glimepiride 2 mg 2 tablets twice a day, off Januvia. Interim History: 01/2020 Follow-up visit on 02/14/20 for type 2 diabetes, A1c in the office 5.7, blood sugars 111. He is doing much better since I saw him last time, and he is lowest 60, highest 197, checking 2 times per day, average 100. He is currently on Victoza 1.8, glimepiride 2 mg twice a day, Januvia 100, and I told him since he is in Victoza we do not need to get Januvia. We will stop it and if it is gets worse next visit, the A1c, then we will add another agent. He is doing much better, and he is watching what he eat, and he stop all sweet, potato and pasta, and we will check lab before next visit. HPI: 11/11 Interim History: 10/2019 The patent is a new patient sent from Dr. Paul Jarvis for uncontrolled diabetes. A1C with his labs done in 10/2019 was 9.1, BUN 10, creatinine 1.3, GFR 53, total cholesterol 138, HDL 24, triglycerides 158, and LDL 82. He is currently on Victoza 1.2, glimepiride 2 mg twice a day, and Januvia 100. He eats a lot of sweet potato and pasta and he has lactic acidosis from metformin before current use, has diabetes for 10 years. Eye exam done on July 2019. SUBJECTIVE: MEDICATIONS: Current Outpatient Medications Medication Instructions ASPIR 81 mg, Oral, Daily atorvastatin (LIPITOR) 40 mg, Oral, Nightly baclofen (LIORESAL) 10 mg, 3 times daily Fiasp 100 UNIT/ML solution INJECT SUBCUTANEOUSLY DIRECTED WITH insulin pump (max DAILY UNITS 100 UNITS) glimepiride (AMARYL) 4 mg, Oral, Daily before breakfast Gvoke HypoPen 2-Pack 0.5 mg, Subcutaneous, Once as needed Insulin Disposable Pump (Omnipod DASH Pods, Gen 4,) misc change pod EVERY 72 HOURS liraglutide (Victoza) 18 MG/3ML injection Subcutaneous, Daily nitroglycerin (Nitrostat) 0.4 MG SL tablet DISSOLVE 1 TABLET UNDER THE TONGUE NEEDED FOR CHEST PAIN- MAY REPEAT EVERY 5 MINUTES IF NEEDED ( MAX 3 DOSES.- IF NO RELIEF CALL 911) NovoLOG 100 Units, Subcutaneous, Daily, Insulin Pump Ozempic (0.25 or 0.5 MG/DOSE) 0.5 mg, Subcutaneous, Every 7 days pregabalin (LYRICA) 75 mg, Oral, 2 times daily propranolol (INDERAL) 20 mg, Oral, 2 times daily spironolactone (ALDACTONE) 25 mg, Oral, Daily ALLERGIES: Allergies Allergen Reactions Diclofenac Anaphylaxis, Other, Shortness of breath and Unknown Metformin Cough, Other and Unknown Kidneys Shut Down Lisinopril Rakel Inhibitors Cough Thimerosal Unknown Past Medical History: Diagnosis Date Essential (primary) hypertension (CMS/HCC) Heart disease High cholesterol (CMS/HCC) 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 (CMS/HCC) Mixed hyperlipidemia (CMS/HCC) Presence of insulin pump (external) (internal) Type II diabetes mellitus (CMS/HCC) Vitamin D deficiency, unspecified Past Surgical History: Procedure Laterality Date APPENDECTOMY BACK SURGERY CARPAL TUNNEL RELEASE LUMBAR FUSION 1991 OTHER SURGICAL HISTORY 2013 pain stimulator implant REVIEW OF SYMPTOMS: 14 POINT OF SYSTEM REVIEWED AND NEGATIVE OBJECTIVE: Constitutional: Afebrile @ home; no weakness or night sweats SKIN: No change in skin color; no itching, rash or lesions; no hair loss; HEENT: No HAs or injury; no dizziness; No difficulty with vision; no eye pain, discharge or lesions; no hearing loss or difficulty; no nasal discharge, NECK: No pain, limitation of motion, lumps or swollen glands RESP: No cough, wheezing or difficulty breathing. No CP with breathing; CARDIO: No CP , SOB or fatigue, No edema, palpitations or dyspnea with exertion GI: No N/V/D or abd. pain; good appetite with no recent change. No heart burn, liver or gallbladder disease; no rectal bleeding or pain : No urinary pain , frequency or odor. MUSCULOSKELETAL: No muscle pain or cramps; no extremity weakness.No joint pain, stiffness, swelling or limitation of movement NEUROLOGY: No H/O seizures, stroke or fainting. No weakness, tremors. Hematology: No bleeding problems or excessive bruising ENDOCRINE: No increase in hunger, thirst or urination; admits compliance to medical management plan Feet: numbness tingling , ulcers or skin break Lab Results Component Value Date HGBA1C 6.9 09/10/2024 Lab Results Component Value Date GLU 155 09/10/2024 GLU 111 (H) 05/24/2024 Visit Vitals BP 104/64 Pulse 69 Resp 16 Ht 5' 11 Wt 249 lb BMI 34.73 kg/m Smoking Status Never BSA 2.38 m Physical Exam ASSESSMENT AND PLAN: Assessment/Plan Diagnoses and all orders for this visit: Type 2 diabetes mellitus with hyperglycemia, with long-term current use of insulin ([facility]) - POCT glucose manually resulted - POCT glycosylated hemoglobin (Hb A1C) docked device We will decrease his basal rate to 1.4 units/hour keep ISS and ICR the same Presence of insulin pump (external) (internal) Encounter for fitting and adjustment of insulin pump 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 documented in this encounter [facility] 02-07-2024 History of Presen t illness Narrative Subjective Janis Gaming is a 63 y.o. male Chief Complaint Follow-up 63-year-old gentleman here for annual follow-up he is doing well he denies any cardiovascular events, complaints, nitrate usage or hospitalizations. He is exposed to secondhand smoke from his on a infrequent basis; smells little bit like smoke this morning. Most recent labs are reviewed, LDL is 80, A1c is 6.4% and he was recently started on Ozempic. He otherwise remains on appropriate GDMT He sustained anterior MT 2013 with PCI of the LAD, subsequent stress testing in 2019 was normal. He has underlying diabetes, hypertension, hyperlipidemia and remains mildly obese. Recommendations, continue current therapies, follow-up in 1 year Review of Systems All other systems reviewed and are negative. Vitals: 02/07/24 1000 BP: 110/68 BP Location: Right arm Patient Position: Sitting Pulse: 60 Weight: 105 kg (232 lb) Height: 1.803 m (5' 11 ) Objective Physical Exam Constitutional: Appearance: Normal appearance. HENT: Nose: Nose normal. Neck: Vascular: No carotid bruit. Cardiovascular: Rate and Rhythm: Normal rate. Pulses: Normal pulses. Heart sounds: Normal heart sounds. Pulmonary: Effort: Pulmonary effort is normal. Abdominal: General: Bowel sounds are normal. Palpations: Abdomen is soft. Musculoskeletal: General: Normal range of motion. Cervical back: Normal range of motion. Right lower leg: No edema. Left lower leg: No edema. Skin: General: Skin is warm and dry. Neurological: General: No focal deficit present. Mental Status: He is alert. Psychiatric: Mood and Affect: Mood normal. Behavior: Behavior normal. Thought Content: Thought content normal. Judgment: Judgment normal. Allergies Rakel inhibitors, Diclofenac, Lisinopril, Metformin, and Thimerosal Current Medications Current Outpatient Medications: aspirin 81 mg EC tablet, Take 1 tablet (81 mg) by mouth once daily., Disp: , Rfl: atorvastatin (Lipitor) 40 mg tablet, Take 1 tablet (40 mg) by mouth once daily at bedtime., Disp: 90 tablet, Rfl: 3 carvedilol (Coreg) 6.25 mg tablet, Take 1 tablet (6.25 mg) by mouth 2 times a day., Disp: 180 tablet, Rfl: 3 insulin aspart (NovoLOG U-100 Insulin aspart) 100 unit/mL injection, Inject under the skin., Disp: , Rfl: insulin pump cart,cont inf,BT (Omnipod Dash Pods, Gen 4,) cartridge, Inject under the skin., Disp: , Rfl: nitroglycerin (Nitrostat) 0.4 mg SL tablet, Place under the tongue. Place 1 tablet under the tongue every 5 minutes up to 3 doses as needed for chest pain. Call [phone] if pain persists, Disp: , Rfl: semaglutide (Ozempic) 1 mg/dose (2 mg/1.5 mL) pen injector, Inject 1 mg under the skin 1 (one) time per week., Disp: , Rfl: spironolactone (Aldactone) 25 mg tablet, Take 1 tablet (25 mg) by mouth once daily., Disp: 90 tablet, Rfl: 3 Assessment/Plan 1. Two-vessel coronary artery disease 2. Ischemic cardiomyopathy 3. History of MT (myocardial infarction) 4. History of PTCA 5. Mixed hyperlipidemia 6. Essential hypertension 7. Type 2 diabetes mellitus without complication, with long-term current use of insulin (Multi) 8. BMI 32.0-32.9,adult Scribe Attestation By signing my name below, I, Moose Samano LPN attest that this documentation has been prepared under the direction and in the presence of Chang Barba DO. Provider Attestation - Scribe documentation All medical record entries made by the Scribe were at my direction and personally dictated by me. I have reviewed the chart and agree that the record accurately reflects my personal performance of the history, physical exam, discussion and plan. documented in this encounter [facility] Work Phone: 02-07-2024 Instructions Kyra Plunkett LPN - 02/07/2024 9:50 AM EDT Please bring all medicines, vitamins, and herbal supplements with you when you come to the office. Prescriptions will not be filled unless you are compliant with your follow up appointments or have a follow up appointment scheduled as per instruction of your physician. Refills should be requested at the time of your visit. BMI was above normal measurement. Current weight: 105 kg (232 lb) Weight change since last visit (-) denotes wt loss -13 lbs Weight loss needed to achieve BMI 25: 53.1 Lbs Weight loss needed to achieve BMI 30: 17.4 Lbs Provided instructions on dietary changes Provided instructions on exercise Advised to Increase physical activity. documented in this encounter [facility] Work Phone: 08-07-2023 Evaluation note Encounter Date Diagnosis Assessment Notes Jul, Suspected COVID-19 virus infection (ICD-10 - Z20.822) Jul, COVID-19 (ICD-10 - U07.1) Discharge Instructions for COVID-19 (Suspected or Confirmed ) material was printed Drink plenty fluids, get plenty of rest. You must quarantine for 5 days after the onset of your symptoms of COVID. Take Tylenol or Motrin as needed for aches pains or fevers. Continue home medications as prescribed. Follow-up with your family physician for any further concerns. [employer] Other 12-01-2022 NoteHNO ID: [id number] Author: Katty Jean Baptiste MD Service: ? Author Type: Physician Type: Progress Notes Filed: 09/22/2022 4:06 PM Note Text: SUBJECTIVE: Mr. Gaming a 61 year old male referred by Poonam Gamez PA-C presents with the complaint of Thoracic pain . Patient reports the date of onset of symptoms as 1 year and describes the location of the pain as midline. The pain is chronic, aching, and rated as 8 on a scale of 1-10, without radiation. PAIN RATIO: (back:leg): Patient reports that LBP is increased by sneezing and relieved by nothing. Ambulation distance (before needing to sit): 10 min Standing time (before needing to sit): 10-15 min OTHER BACK PAIN SYMPTOMS: NIGHT PAIN: Yes PARESTHESIA: Yes in his right hand and fingers POOR SLEEP: Yes BOWEL/BLADDER INCONTINENCE OR RETENTION: No ACTIVITY LIMITATIONS: ADLs PREVIOUS TREATMENTS LASTING SIX WEEKS IN THE LAST SIX MONTHS Active conservative therapy lasting 6 weeks in the last six months (see below) 1. Physical therapy: No 2. Home exercise program after PT: No 3. Occupational therapy: No 4. A physician supervised home exercise program (HEP): No 5. Pyridine Recovery Operator: No Passive conservative therapy lasting 6 weeks in the last six months (see below) 1. Medical devises: No 2. Acupuncture: No 3. Tens unit: No 4. Prescription pain medication: YES 5. NSAIDS: Aleve OCCUPATIONAL HISTORY: HISTORY OF TRAUMA/OVERUSE OF AREA: No REVIEW OF SYSTEMS: GENERAL: Negative for malaise, significant weight loss and fever HEENT: Negative for frequent or significant headaches NECK: Negative for lumps, goiter, pain and significant neck swelling RESPIRATORY: Negative for cough, hemoptysis, wheezing, COPD, dyspnea or shortness of breath CARDIOVASCULAR: Negative for chest pain, leg swelling, hypertension, CHF or palpitations GI: No nausea, vomiting, or diarrhea : No history of dysuria, frequency or incontinence MUSCULOSKELETAL: Right sided rib pain and midline back pain SKIN: Negative for lesions, rash, and itching PSYCH: Sleep Disturbance HEMATOLOGY/LYMPHOLOGY Negative for prolonged bleeding, bruising easily or swollen nodes PAST MEDICAL HISTORY Diagnosis Date Diabetes mellitus (HCC) Mixed hyperlipidemia PAST MEDICAL HISTORY Diagnosis Date Diabetes mellitus (HCC) Mixed hyperlipidemia No past surgical history on file. EXAMINATION: [id number]: Scoliosis: No Pelvic Tilt: No Leg Length discrepancy: NA LATERAL: Cervical Lordosis: No Thoracic Kyphosis: No Lumbar Lordosis: No RANGE OF MOTION CERVICAL: Flexion: Not Limited Extension: Not Limited LUMBAR: Flexion: Not Limited Extension: Not Limited FINGER TO FLOOR DISTANCE: Midthigh Gait: Normal REFLEXES R L Biceps (C6): 1-2+ 1-2+ Triceps (C7): 1-2+ 1-2+ Brachioradiolis (C6): 1-2+ 1-2+ Ankle (S1): 2+ 2+ Knee (L4): 2+ 2+ STRENGTH (0-5): R L Deltoid (AB:C5,6): 5 5 Biceps (Flex:C5,6): 5 5 Wrist Ext.(C6,7): 5 5 Interrosei (C8,T1): 5 5 PSOAS (L2,3): 5 5 Gluteus (L5,S1,2): 5 5 Quadriceps (L3,4): 5 5 EHL (L5): 5 5 Soleus (S1): 5 5 SLR: Seated - Right Negative, Left Negative HIP: ROM is WNL without pain in flexion, extension and internal rotation. FABERES: Negative DONALD TEST 1) Tenderness: Appropriate 2) Simulation/Axial Loading/ROT: Appropriate 3) Distraction: Seated SLR: Appropriate 4) Reqional Disturbances: Appropriate 5) Overreaction: Appropriate PHYSICAL EXAMINATION: GENERAL APPEARANCE: Well appearing, in no acute distress SKIN: Skin color, texture, turgor normal. No rashes or lesions. HEAD: Normocephalic. No masses, lesions, tenderness or abnormalities EYES: Conjunctivae/corneas clear. Pupils are equally round and reactive to light. Extraocular movements are intact. NECK: Neck supple, no adenopathy; thyroid symmetric, normal size, no bruits. LUNGS: Lungs clear to auscultation, No wheezing or rhonchi HEART: negative. RRR without murmur, gallop, or rubs. No ectopy. ABDOMEN: Abdomen soft, non-tender. Bowel sounds normal. No masses, organomegaly EXTREMITIES: Extremities normal. No deformities, edema, or skin discoloration. Good capillary refill. PULSES: Normal lower extremity pulses. NEURO: Gait normal. Reflexes normal and symmetric. Sensation grossly intact. CT Thoracic Spine 04/27/2022 Thoracic vertebra have normal shape with no focal abnormality. There is loss of intervertebral disc height through the mid thoracic region with no subluxation. Mild facet degenerative changes are present. Spinal stimulation leads overlie the posterior aspect of the spinal canal at the T7-T8 region. No visible pulmonary infiltrate is present. A large right. Tracheal lymph nodes are present with calcification. Other visualized osseous structures are within normal limits IMPRESSION: Thoracic degenerative changes with no focal or acute osseous abnormality evident. IMPRESS (more content not included)...[facility]12-01-2022 History of Present illness Narrative* Katty Jean Baptiste MD - 09/22/2022 2:30 PM EST SUBJECTIVE: Mr. Gaming a 61 year old male referred by Poonam Gamez PA-C presents with the complaint of Thoracic pain . Patient reports the date of onset of symptoms as 1 year and describes the location of the pain as midline. The pain is chronic, aching, and rated as 8 on a scale of 1-10, without radiation. PAIN RATIO: (back:leg): Patient reports that LBP is increased by sneezing and relieved by nothing. Ambulation distance (before needing to sit): 10 min Standing time (before needing to sit): 10-15 min OTHER BACK PAIN SYMPTOMS: NIGHT PAIN: Yes PARESTHESIA: Yes in his right hand and fingers POOR SLEEP: Yes BOWEL/BLADDER INCONTINENCE OR RETENTION: No ACTIVITY LIMITATIONS: ADLs PREVIOUS TREATMENTS LASTING SIX WEEKS IN THE LAST SIX MONTHS Active conservative therapy lasting 6 weeks in the last six months (see below) 1. Physical therapy: No 2. Home exercise program after PT: No 3. Occupational therapy: No 4. A physician supervised home exercise program (HEP): No 5. Pyridine Recovery Operator: No Passive conservative therapy lasting 6 weeks in the last six months (see below) 1. Medical devises: No 2. Acupuncture: No 3. Tens unit: No 4. Prescription pain medication: YES 5. NSAIDS: Aleve OCCUPATIONAL HISTORY: HISTORY OF TRAUMA/OVERUSE OF AREA: No REVIEW OF SYSTEMS: GENERAL: Negative for malaise, significant weight loss and fever HEENT: Negative for frequent or significant headaches NECK: Negative for lumps, goiter, pain and significant neck swelling RESPIRATORY: Negative for cough, hemoptysis, wheezing, COPD, dyspnea or shortness of breath CARDIOVASCULAR: Negative for chest pain, leg swelling, hypertension, CHF or palpitations GI: No nausea, vomiting, or diarrhea : No history of dysuria, frequency or incontinence MUSCULOSKELETAL: Right sided rib pain and midline back pain SKIN: Negative for lesions, rash, and itching PSYCH: Sleep Disturbance HEMATOLOGY/LYMPHOLOGY Negative for prolonged bleeding, bruising easily or swollen nodes PAST MEDICAL HISTORY Diagnosis Date Diabetes mellitus (HCC) Mixed hyperlipidemia PAST MEDICAL HISTORY Diagnosis Date Diabetes mellitus (HCC) Mixed hyperlipidemia No past surgical history on file. EXAMINATION: [id number]: Scoliosis: No Pelvic Tilt: No Leg Length discrepancy: NA LATERAL: Cervical Lordosis: No Thoracic Kyphosis: No Lumbar Lordosis: No RANGE OF MOTION CERVICAL: Flexion: Not Limited Extension: Not Limited LUMBAR: Flexion: Not Limited Extension: Not Limited FINGER TO FLOOR DISTANCE: Midthigh Gait: Normal REFLEXES R L Biceps (C6): 1-2+ 1-2+ Triceps (C7): 1-2+ 1-2+ Brachioradiolis (C6): 1-2+ 1-2+ Ankle (S1): 2+ 2+ Knee (L4): 2+ 2+ STRENGTH (0-5): R L Deltoid (AB:C5,6): 5 5 Biceps (Flex:C5,6): 5 5 Wrist Ext.(C6,7): 5 5 Interrosei (C8,T1): 5 5 PSOAS (L2,3): 5 5 Gluteus (L5,S1,2): 5 5 Quadriceps (L3,4): 5 5 EHL (L5): 5 5 Soleus (S1): 5 5 SLR: Seated - Right Negative, Left Negative HIP: ROM is WNL without pain in flexion, extension and internal rotation. FABERES: Negative DONALD TEST 1) Tenderness: Appropriate 2) Simulation/Axial Loading/ROT: Appropriate 3) Distraction: Seated SLR: Appropriate 4) Reqional Disturbances: Appropriate 5) Overreaction: Appropriate PHYSICAL EXAMINATION: GENERAL APPEARANCE: Well appearing, in no acute distress SKIN: Skin color, texture, turgor normal. No rashes or lesions. HEAD: Normocephalic. No masses, lesions, tenderness or abnormalities EYES: Conjunctivae/corneas clear. Pupils are equally round and reactive to light. Extraocular movements are intact. NECK: Neck supple, no adenopathy; thyroid symmetric, normal size, no bruits. LUNGS: Lungs clear to auscultation, No wheezing or rhonchi HEART: negative. RRR without murmur, gallop, or rubs. No ectopy. ABDOMEN: Abdomen soft, non-tender. Bowel sounds normal. No masses, organomegaly EXTREMITIES: Extremities normal. No deformities, edema, or skin discoloration. Good capillary refill. PULSES: Normal lower extremity pulses. NEURO: Gait normal. Reflexes normal and symmetric. Sensation grossly intact. CT Thoracic Spine 04/27/2022 Thoracic vertebra have normal shape with no focal abnormality. There is loss of intervertebral discheight through the mid thoracic region with no subluxation. Mild facet degenerative changes are present. Spinal stimulation leads overlie the posterior aspect of the spinal canal at the T7-T8 region. No visible pulmonary infiltrate is present. A large right. Tracheal lymph nodes are present with calcification. Other visualized osseous structures are within normal limits IMPRESSION: Thoracic degenerative changes with no focal or acute osseous abnormality evident. IMPRESSION: Thoracic radiculitis (primary encounter diagnosis) Degeneration of thoracic intervertebral disc Costochondral pain Diabetes 1.5, managed as type 1 (hcc) Hx of LEFT sided chest pain since 12/2021. Thinks it started after shoveling snow. Pain with flexion / rotation. Pain best standing > sitting. Had left sided RFA in T 6,7,8 area and that made pain no better - possibly worse. Minimal DDD in thoracic spine. Chest CT was WNL. Hx of L 5-S1 fusion 1990. Hx of SCS (medtronic MRI conditional) in [place] in 2014 - helped LBP. CT thoracic shows stimulation leads at T 7-8 and diffuse thoracic DDD. Pain reported from midline T 7 level anteriorly to 5-6 ICS. Has costochondral cartilage tenderness. IDDM since 2005. Lyrica for hsi LBP. A1C = 7.1 CREAT = 1.17 Non smoker. CAD - stents x 3 PLAN: Discussed the above findings and potential options with the patient. Chroinc LEFT sided chest pain since 12/2021. Pain is both mechanical with some intercostal neuralgic features. Suggest: - TESI at T 6 level - option for left costochondral injection versus intercostal block depending on response to the above. The above exam has been completed by me and the pertinent and negative systems have been updated. I spent a total of 40 minutes on the date of the service which included preparing to see the patient, [id number] patient care, completing clinical documentation, obtaining and/or reviewing separately obtained history, performing a medically appropriate examination, counseling and educating the pat ient/family/caregiver, ordering medications, tests, or procedures, communicating with other HCPs (not separately reported), independently interpreting results (not separately reported), communicatingresults to the patient/family/caregiver, and care coordination (not separately reported). Katty Jean Baptiste MD [facility] Miscellaneous Notes* Telephone Encounter - Gardenia Man MA - 06/22/2022 3:22 PM EDT Patient was advised of the following: This is a follow up phone call regarding your appointment with Dr Jean Baptiste, [facility]. 1) Have you been evaluated and treated by a Pain Management physician currently or in the past? If so, we will need a release of care from your previous physician. 2) Have you had any outside x-rays or MRI's related to the pain you are being seen for? If so, please bring copies to your appointment with you. Also please recall that our physicians will not take over medications. You will need to make sure you have enough pain medications to last until your follow up appointment with your current prescribing physician. Dr. Andrade is primarily an interventional pain management provider, which means, they treat with physical therapy, injections and non-narcotic medications. Any questions or you need to reschedule please call us at [phone]. Left VM with new patient policy advised to call office with any questions or concerns Gardenia Man MA [facility]20[facility] NotePROCEDURE: CT TSPINE WO CON COMPARISON: X-ray 12/23/2021. MRI 04/16/2014 HISTORY: Pain in thoracic spine TECHNIQUE: Axial, Coronal, and Sagittal CT images obtained without IV contrast. Dose reduction techniques were achieved by using automated exposure control and/or adjustment of mA and/or kV according to patient size and/or use of iterative reconstruction technique. FINDINGS: PARASPINAL AREA: 3.0 x 2.9 cm heterogeneous calcified right paratracheal mass, stable from 2018 CT exam likely representing prior granulomatous process DISCS: Mild multilevel disc space narrowing. BONES: Normal alignment of the thoracic vertebral bodies with no acute fracture or spondylolisthesis. Moderate degenerative spondylosis most significant at T8-T9. OTHER: Neurostimulator wires enter the central canal at T12-L1 and extending cranially to the T6-T7 level IMPRESSION: No acute fracture or spondylolisthesis Mild to moderate degenerative spondylosis. No definite central or foraminal stenosis Electronically authenticated by: WINSOME WYNN Date: 2022-01-14 09:25[facility] Thoracic radiculitis- Primary Thoracic or lumbosacral neuritis or radiculitis, unspecified Degeneration of thoracic intervertebral disc Degeneration of thoracic or thoracolumbar intervertebral disc Costochondral pain Painful respiration Diabetes 1.5, managed as type 1 (HCC) Type II or unspecified type diabetes mellitus without mention of complication, not stated as uncontrolled [facility] Diagnosis Two-vessel coronary artery disease Ischemic cardiomyopathy Other specified forms of chronic ischemic heart disease History of MT (myocardial infarction) Old myocardial infarction History of PTCA Postsurgical percutaneous transluminal coronary angioplasty status Mixed hyperlipidemia Essential hypertension Unspecified essential hypertension Type 2 diabetes mellitus without complication, with long-term current use of insulin (Multi) BMI 32.0-32.9,adult documented in this encounter [facility] Work Phone: Evaluation note* Diagnosis Type 2 diabetes mellitus without complication, with long-term current use of insulin (CMS/HCC)- Primary Hyperlipidemia, unspecified hyperlipidemia type (CMS/HCC) Essential hypertension (CMS/HCC) Unspecified essential hypertension URTI (acute upper respiratory infection) Acute upper respiratory infections of unspecified site Medicare annual wellness visit, subsequent- Primary Pigmented skin lesion suspicious for malignant neoplasm Essential tremor Essential tremor documented in [facility] encounter [facility]* Diagnosis Type 2 diabetes mellitus without complication, with long-term current use of insulin (CMS/HCC)- Primary Hyperlipidemia, unspecified hyperlipidemia type (CMS/HCC) Essential hypertension (CMS/HCC) Unspecified essential hypertension URTI (acute upper respiratory infection) Acute upper respiratory infections of unspecified site Medicare annual wellness visit, subsequent- Primary Pigmented skin lesion suspicious for malignant neoplasm Essential tremor Type 2 diabetes mellitus with hyperglycemia, with long-term current use of insulin (CMS/HCC)- Primary Presence of insulin pump (external) (internal) Encounter for fitting and adjustment of insulin pump 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 (CMS/HCC) Vitamin D deficiency, unspecified Mixed hyperlipidemia (CMS/HCC) Mixed hyperlipidemia Class 1 obesity due to excess calories with serious comorbidity and body mass index (BMI) of 34.0 to 34.9 in adult Hypoglycemia Hypoglycemia, unspecified documented in this encounter [facility] HealthcareEvaluation note* Diagnosis Type 2 diabetes mellitus without complication, with long-term current use of insulin (CMS/HCC)- Primary Hyperlipidemia, unspecified hyperlipidemia type (CMS/HCC) Essential hypertension (CMS/HCC) Unspecified essential hypertension URTI (acute upper respiratory infection) Acute upper respiratory infections of unspecified site Medicare annual wellness visit, subsequent- Primary Pigmented skin lesion suspicious for malignant neoplasm Essential tremor Type 2 diabetes mellitus with hyperglycemia, with long-term current use of insulin (CMS/HCC) documented in this encounter [facility] HealthcareEvaluation note* Diagnosis Type 2 diabetes mellitus without complication, with long-term current use of insulin (CMS/HCC)- Primary Hyperlipidemia, unspecified hyperlipidemia type (CMS/HCC) Essential hypertension (CMS/HCC) Unspecified essential hypertension URTI (acute upper respiratory infection) Acute upper respiratory infections of unspecified site Medicare annual wellness visit, subsequent- Primary Pigmented skin lesion suspicious for malignant neoplasm Essential tremor Vertigo- Primary Dizziness and giddiness Degeneration of thoracic intervertebral disc Degeneration of thoracic or thoracolumbar intervertebral disc Thoracic spondylosis without myelopathy Lumbosacral spondylosis without myelopathy documented in this encounter [facility] HealthcareEvaluation note* Diagnosis Type 2 diabetes mellitus without complication, with long-term current use of insulin (CMS/HCC)- Primary Hyperlipidemia, unspecified hyperlipidemia type (CMS/HCC) Essential hypertension (CMS/HCC) Unspecified essential hypertension URTI (acute upper respiratory infection) Acute upper respiratory infections of unspecified site Medicare annual wellness visit, subsequent- Primary Pigmented skin lesion suspicious for malignant neoplasm Essential tremor Vertigo- Primary Dizziness and giddiness Degeneration of thoracic intervertebral disc Degeneration of thoracic or thoracolumbar intervertebral disc Thoracic spondylosis without myelopathy Lumbosacral spondylosis without myelopathy Dizziness- Primary Dizziness and giddiness documented in this encounter [facility] HealthcareHistory general Narrative - Reported* Type Description Date Medical History diabetes Medical History chronic back pain Medical History heart attack Surgical History 3 stents in heart Surgical History appendectomy Surgical History back surgery L5-S1- implant put in Hospitalization History pneumonia Hospitalization History [facility]va Hospitalization History diabetes [employer] Other Reason for referral (narrative)* Consultation (Routine) - Authorized Specialty Diagnoses / Procedures Referred By Sylvia pena Referred To Contact Cardiology Diagnoses Two-vessel coronary artery disease Procedures Follow Up In Cardiology Chang Barba DO [address] [place] [id number] Chang Barba DO [address] [place] [address], [address] [address] Referral ID Status Reason Start Date Expiration Date V isits Requested Visits Authorized [id number] Authorized 02/07/2024 02/06/2025 [address] [facility] Work Phone: Summary Purpose Family History No Family History Records FoundUnknown Family Member Name Dates Details No pertinent family history: Mother, Sibling(V49.89, Z78.9) Status:Active Hardening of the aorta (main artery of the heart): Father Status:Active Unknown Family Member Name Dates Details Hardening of the aorta (main artery of the heart): Father Status:Active No pertinent family history: Mother, Sibling(V49.89, Z78.9) Status:Active Unknown Family Member Name Dates Details Hardening of the aorta (main artery of the heart): Father Status:Active No pertinent family history: Mother, Sibling(V49.89, Z78.9) Status:Active Unknown Family Member Name Dates Details Hardening of the aorta (main artery of the heart): Father Status:Active No pertinent family history: Mother, Sibling(V49.89, Z78.9) Status:Active Unknown Family Member Name Dates Details Hardening of the aorta (main artery of the heart): Father Status:Active No pertinent family history: Mother, Sibling(V49.89, Z78.9) Status:Active Unknown Family Member Name Dates Details Hardening of the aorta (main artery of the heart): Father Status:Active No pertinent family history: Mother, Sibling(V49.89, Z78.9) Status:Active Unknown Family Member Name Dates Details Hardening of the aorta (main artery of the heart): Father Status:Active No pertinent family history: Mother, Sibling(V49.89, Z78.9) Status:Active Advance Directives No Advanced Directives Records FoundNo Advanced Directives Records FoundNo Advanced Directives Records FoundNo Advanced Directives Records FoundNo Advanced Directives Records FoundNo Advanced Directives Records FoundNo Advanced Directives Records FoundNo Advanced Directives Records FoundNo Advanced Directives Records Found Chief Complaint * JANIS GAMING is being seen for an annual follow-up of. * Patient is a 60-year-old gentleman who returns for annual follow-up he is doing well. He a denies any cardiovascular events or complaints. He has known ASHD with remote anterior MT in 2013 with revascularization of the LAD at that time. He had normal stress testing in 2019. He has underlying diabetes, hypertension and obesity but is maintaining reasonable activity and exercising 2-3 times weekly.He did have Covid and September 2021. * Recommendations, obtain appropriate laboratories, counseling on dietary discretion, weight loss andexercise and follow-up in 1 year * JANIS GAMING is being seen for an annual follow-up of. * 62-year-old gentleman returns for follow-up he is doing well he has no cardiovascular complaint. Heremains active without nitrate usage or hospitalizations. * He sustained anterior MT 2013 with PCI of the LAD, subsequent stress testing in 2019 was normal. * He has underlying diabetes, hypertension, hyperlipidemia and remains mildly obese * Recommendations, obtain lipid and high-sensitivity CRP, counseling on dietary discretion and weightloss we will follow-up on same therapies in 1 year Additional Source Comments (unrecognized sect ion and content) No Status Records FoundNo Status Records FoundNo Status Records FoundNo Status Records FoundNo Status Records FoundNo Status Records FoundNo Status Records FoundNo Status Records FoundNo Status Records Found INFORMATION SOURCE (unrecogn ized section and content) DATE CREATED AUTHOR 11/12/2018 [facility] Healthcare DATE CREATED AUTHOR AUTHOR'S ORGANIZ ATION 10/29/2019 [facility] DATE CREATED AUTHOR AUTHOR'S ORGANIZ ATION [facility]/12/[facility] DATE CREATED AUTHOR AUTHOR'S ORGANIZ ATION 09/23/2022 [facility] DATE CREATED AUTHOR AUTHOR'S ORGANIZ ATION 01/04/2023 [facility] DATE CREATED AUTHOR AUTHOR'S ORGANIZ ATION 02/15/2023 [facility] DATE CREATED AUTHOR AUTHOR'S ORGANIZ ATION 02/16/2023 [facility] DATE CREATED AUTHOR AUTHOR'S ORGANIZ ATION 11/01/2024 [facility] DATE CREATED AUTHOR AUTHOR'S ORGANIZ ATION 11/05/2024 [facility] EPIC Source Comments (unrecognize d section and content) In the event this informatio n is protected by the Federal Confidentiality of Alcohol and Drug Abuse Patient Records regulations: The Federal rules restrict any use of the information to criminally investigate or prosecute any alcohol or drug abuse patient.[facility] the event this information is protected by the Federal Confidentiality of Alcohol and Drug Abuse Patient Records regulations: The Federal rules restrict any use of the information to criminally investigate or prosecute any alcohol or drug abuse patient.[facility] Reason for Visit (unrecogniz ed section and content) Reason Comments Appointment Pain management Reason Comments Rib Pain and Mid Back on left side Reason Comments Follow-up 1 year Reason Comments Tremors Reason Comments Diabetes Follow-up Reason Comments Dizziness Care Teams (unrecognized sec tion and content) Manager Lan Relationship Specialty Start Date End Date Luciano Paul Robert Sr. [address] [place] [address] PCP - General Family Practice 05/19/22 Poonam Gamez PA-C [address] [place] [address] Referring 05/19/22 Manager Lan Relationship Specialty Start Date End Date Paul Jarvis Sr. [address] [place] [address] PCP - General Family Medicine 05/19/22 Poonam Gamez PA-C [address] [place] [address] Referring 05/19/22 Manager Lan Relationship Specialty Start Date End Date Shaikh Simental MD [facility] [address] [place] [address] PCP - General Internal Medicine 02/07/24 Chang Barba DO [address] [facility] 2, [place] [address] [place] [address] Consulting Physician Cardiology 02/07/24 Manager Lan Relationship Specialty Start Date End Date Ilia Hernandez MD [address] [place] [address] PCP - Devoted 05/23/21 Ilia Hernandez MD [address] [place] [address] PCP - General Family Medicine 05/27/24 Reynold Flores NP [address] [place] [address] Nurse Practitioner Family Medicine 05/22/24 Reynold Flores NP [address] [place] [address] Nurse Practitioner Family Medicine 05/27/24 Manager Lan Relationship Specialty Start Date End Date Ilia Hernandez MD [address] [place] [address] PCP - Devoted 05/23/21 10/22/24 Ilia Hernandez MD [address] [place] [address] PCP - General Family Medicine 05/27/24 Reynold Flores NP [address] [place] [address] Nurse Practitioner Family Medicine 05/22/24 Reynold Flores NP [address] [place] [address] Nurse Practitioner Family Medicine 05/27/24 Manager Lan Relationship Specialty Start Date End Date Ilia Hernandez MD [address] [place] [phone] PCP - Devoted 05/23/21 10/22/24 Ilia Hernandez MD [address] [place] [phone] PCP - General Family Medicine 05/27/24 Reynold Flores NP [address] [place] [address] Nurse Practitioner Family Medicine 05/22/24 Reynold Flores NP [address] [place] [address] Nurse Practitioner Family Medicine 05/27/24 Manager Lan Relationship Specialty Start Date End Date Ilia Hernandez MD [address] [place] [address] PCP - Devoted 05/23/21 10/22/24 Ilia Hernandez MD [address] [place] [address] PCP - General Family Medicine 05/27/24 Reynold Flores NP [address] [place] [address] Nurse Practitioner Family Medicine 05/22/24 Reynold Flores NP [address] [place] [address] Nurse Practitioner Family Medicine 05/27/24 Manager Lan Relationship Specialty Start Date End Date Ilia Hernandez MD [address] [place] [phone] PCP - General Family Medicine 05/27/24 Shaikh Simental MD [address] [place] [address] PCP - Devoted 10/23/24 Reynold Flores NP [address] [place] [address] Nurse Practitioner Family Medicine 05/22/24 Reynold Flores NP [address] [place] [address] Nurse Practitioner Family Medicine 05/27/24 Manager Lan Relationship Specialty Start Date End Date Ilia Hernandez MD [address] [place] [phone] PCP - General Family Medicine 05/27/24 Shaikh Simental MD [address] [place] [address] PCP - Devoted 10/23/24 Reynold Flores NP [address] [place] [address] Nurse Practitioner Family Medicine 05/22/24 Reynold Flores NP [address] [place] [address] Nurse Practitioner Family Medicine 05/27/24 Manager Lan Relationship Specialty Start Date End Date Ilia Hernandez MD [address] [place] [phone] PCP - General Family Medicine 05/27/24 Shaikh Simental MD [address] [place] [phone] PCP - Devoted 10/23/24 Reynold Flores NP [address] [place] [address] Nurse Practitioner Family Medicine 05/22/24 Reynold Flores NP [address] [place] [address] Nurse Practitioner Family Medicine 05/27/24 FOR RECORDS PERTAINING TO PATIENTS WHO ARE OR HAVE BEEN ENROLLED IN A CHEMICAL DEPENDENCY/SUBSTANCEABUSE PROGRAM, SOME INFORMATION MAY BE OMITTED. This clinical summary was aggregated from multiple sources. Caution should be exercised in using it in the provision of clinical care. This summary normalizes information from multiple sources, and as a consequence, information in this document may materially change the coding, format and clinical context of patient data. In addition, data may be omitted in some cases. CLINICAL DECISIONS SHOULD BE BASED ON THE PRIMARY CLINICAL RECORDS. [facility]. provides no warranty or guarantee of the accuracy or completeness of information in this document.
--- NOTE | 2024-11-11 11:21 | PM.CN ---
Consult Note: HPI Data of Consult Patient: new to practice Consult date: 11/11/24 Requesting Physician: Elijah Amdao MD Primary Care Provider: REYNOLD JOHANSEN Consult Narrative Reason for consult: low back, bilateral lower extremity pain Narrative: 63yom who presents for evaluation. longstanding history of low back pain, bilateral lower extremity pain. previously had lumbar interventions, with good relief. also had spinal cord stim implanted about 10 years ago, but battery has recently stopped working. has not been able to get in touch with rep from [employer]. has continued in a series of provider directed home exercises for >6 weeks, without lasting benefit. uses otc pain meds as needed. denies adverse med side effects. cc:: CC: Elijah Amado MD Review of Systems ROS Status of ROS 10 or more systems reviewed and unremarkable except as noted in history and below Meds Home Medications and Allergies Home Medications ?Medication ?Instructions ?Recorded ?Confirmed ?Type cephalexin 500 mg capsule 500 mg PO Q8H 10 days #30 caps 05/25/23 Rx ketorolac 10 mg tablet 10 mg PO TID PRN pain #10 tabs 05/25/23 Rx Allergies Allergy/AdvReac Type Severity Reaction Status Date / Time bisacodyl (From Dulcolax Allergy Intermediate Verified 05/25/23 17:12 (bisacodyl)) metformin Allergy Intermediate Verified 05/25/23 17:12 Exam Narrative Exam Narrative: Psych-alert and oriented x 3. Attentive and appropriate, constitutionally normal, displays normal mood and affect per situation. There are no obvious deficits in memory, reasoning, or intellect.? Skin-no obvious rashes, bruising, erythema noted to the patient's area of pain.? Extremities- extremities are warm with minimal edema and palpable pulses. Lumbar-tenderness to palpation noted in the lumbar spine and paraspinal musculature. Pain is elicited with flexion, extension, and lateral rotation of the lumbar spine. Range of motion is diminished with these motions. Facet loading maneuvers are positive.? Strength-noted to be unremarkable with the exception of decreased strength rated at 4 out of 5 in bilateral quadriceps femoris, anterior tibialis. Sensory-no notable sensory deficits in the bilateral lower extremities to touch or pinprick in all dermatomal distributions with the exception to decreased sensation to the bilateral L4, 5 dermatomal distribution Coordination remains intact.? Gait remains non-antalgic. Assessment and Plan Assessment and Plan (1) Lumbar postlaminectomy syndrome: (2) Lumbar stenosis with neurogenic claudication: Plan 63yom who presents for evaluation. failed conservative measures, as noted. previous imaging from 2021 reviewed, which shows multilevel stenosis. hx of lumbar fusion as well. given symptoms and exam findings, would like to update lumbar ct without contrast, as he has non-mri compatible scs battery. he is in agreement. in terms of scs battery, he had >50% relief when this was functioning. i will obtain thoracic and lumbar xrs to ensure that leads are still in good position, and if this is the case, then we will proceed with a battery exchange with a [employer] implantable generator. he is in agreement. meds reviewed, no changes. follow up after imaging and procedure.
== END 2024-11-11 10:10 | disposition home or self-care (01) ==
LOC: PM 10:09
PROVIDERS: Visit Provider Anesthesiology
DX: M48.062 Spinal stenosis, lumbar region with neurogenic claudication (principal); M96.1 Postlaminectomy syndrome, not elsewhere classified
CPT/HCPCS: G0463

== ENCOUNTER 2024-11-21 09:26 | Outpatient (OUT) | payer OTHER, SELFPAY ==
--- NOTE | 2024-11-21 09:30 | XR_ITS ---
The [address] [address] Patient Name: JANIS BRANCH MRN: [id number] date: 1960 Sex: M Assigned Patient Location: CT Current Patient Location: CT Accession/Order Number: [id number] Exam Date: 11/21/2024 09:45 Report Date: 11/22/2024 05:51 At the request of: PRAVEENA EDWARDSRAFRACISCO Procedure: XR lumbar spine min 4V EXAMINATION: XR lumbar spine min 4V, XR thoracic spine 2V HISTORY: Lumbar Pain COMPARISON: CT lumbar spine 08/24/2022 FINDINGS: BONES: Multilevel mild-moderate degenerative facet arthropathy of lower lumbar spine. No fracture, spondylolisthesis, bone lesion. DISC SPACES: Multilevel mild degenerative disc disease of mid thoracic spine. Complete loss of disc space at L5-S1 with mild/moderate foramen narrowing.. PARASPINOUS: Neurostimulator pack within subcutaneous fat posterior to the pelvis with wires extending cephalad and entering the central canal at the T12-L1 level and extending cephalad with electrodes positioned over the T6-T8 levels. Mass versus dense calcifications along the right margin of T3-T5, approximately 4.4 x 2.2 cm. OTHER: Negative. XR/XR lumbar spine min 4V IMPRESSION: 1. L5-S1 marked degenerative disc disease and multilevel mild/moderate degenerative facet arthropathy; grossly stable. 2. Thoracic central spinal canal neurostimulator. 3. Mass versus summation artifact along the right margin of thoracic spine, T3-T5. CT chest with IV contrast is recommended for further evaluation. Electronically authenticated by: BEN CAMACHO Date: 11/22/2024 05:51
--- NOTE | 2024-11-21 09:30 | XR_ITS ---
The [address] [address] Patient Name: JANIS BRANCH MRN: [id number] date: 1960 Sex: M Assigned Patient Location: CT Current Patient Location: CT Accession/Order Number: [id number] Exam Date: 11/21/2024 09:45 Report Date: 11/22/2024 05:51 At the request of: PRAVEENA EDWARDSRAFRACISCO Procedure: XR thoracic spine 2V EXAMINATION: XR lumbar spine min 4V, XR thoracic spine 2V HISTORY: Lumbar Pain COMPARISON: CT lumbar spine 08/24/2022 FINDINGS: BONES: Multilevel mild-moderate degenerative facet arthropathy of lower lumbar spine. No fracture, spondylolisthesis, bone lesion. DISC SPACES: Multilevel mild degenerative disc disease of mid thoracic spine. Complete loss of disc space at L5-S1 with mild/moderate foramen narrowing.. PARASPINOUS: Neurostimulator pack within subcutaneous fat posterior to the pelvis with wires extending cephalad and entering the central canal at the T12-L1 level and extending cephalad with electrodes positioned over the T6-T8 levels. Mass versus dense calcifications along the right margin of T3-T5, approximately 4.4 x 2.2 cm. OTHER: Negative. XR/XR thoracic spine 2V IMPRESSION: 1. L5-S1 marked degenerative disc disease and multilevel mild/moderate degenerative facet arthropathy; grossly stable. 2. Thoracic central spinal canal neurostimulator. 3. Mass versus summation artifact along the right margin of thoracic spine, T3-T5. CT chest with IV contrast is recommended for further evaluation. Electronically authenticated by: BEN CAMACHO Date: 11/22/2024 05:51
--- NOTE | 2024-11-21 09:30 | CT_ITS ---
The [address] [address] Patient Name: JANIS BRANCH MRN: [id number] date: 1960 Sex: M Assigned Patient Location: CT Current Patient Location: Accession/Order Number: [id number] Exam Date: 11/21/2024 09:35 Report Date: 11/22/2024 05:43 At the request of: PRAVEENA DEGROOT Procedure: CT lumbar spine wo con EXAMINATION: CT lumbar spine wo con HISTORY: Lumbar Pain, Post Laminectomy COMPARISON: No relevant comparison available. TECHNIQUE: Axial, Coronal, and Sagittal images were created without IV contrast. Dose reduction techniques were achieved by using automated exposure control and/or adjustment of mA and/or kV according to patient size and/or use of iterative reconstruction technique. FINDINGS: VERTEBRAL BODIES: Normal height and alignment of vertebral bodies; no fracture or bone lesion. FACET JOINTS: Moderate-marked degenerative facet arthropathy L4-L5 resulting in bone encroachment and neural foramen. Multilevel mild arthropathy. No disruption or abnormal widening. DISCS: Complete loss of disc height at L5-S1. Mild diffuse disc bulging L2-L3 through L4-L5 without significant disc height reduction; mild foramen narrowing at these levels. CENTRAL CANAL: Electrodes within central canal entering at T12-L1 and extending cephalad within the posterior central canal. No evidence of hemorrhage. PARASPINAL AREA: No visible mass. CT/CT lumbar spine wo con IMPRESSION: 1. Thoracic central canal electrodes. 2. Multilevel mild degenerative disc disease with with mild foramen narrowing; moderate-marked degenerative facet arthropathy at L4-L5 with mild to moderate foramen narrowing. 3. Marked degenerative disc disease L5-S1 with moderate foramen narrowing. 4. No specific findings to account for patient's symptoms. Electronically authenticated by: BEN CAMACHO Date: 11/22/2024 05:43
--- OUTSIDE RECORDS SUMMARY | 2024-11-21 09:44 | XMS_ITS | CCD ---
Author Organization [facility] Care Team Providers Care Operations Chief Name Role Phone UNKNOWN, PROVIDER Attending Unavailable READS LANDINGPAUL Primary Care Unavailable House, Paul Cherry Unavailable Unavailable Unavailable House Sr., Paul Robert Primary Care Provider Poonam Gamez PA-C Unavailable [phone] House Sr., [facility] Primary Care Provider Poonam Gamez PA-C Unavailable [phone] KATTY JEAN BAPTISTE Attending Unavailable HOUSE SR, [facility] [place] [facility] UnaKATTY Adam Attending Unavailable READS LANDING SR, [facility] [place] [facility] Unava joi ALTAMIRANOD, HOLLOWAY H Primary Care Unavailable CARLOS Call, DR HODGSON Attending Unavailable CARLOS Call, DR HODGSON Admitting Unavailable JANICE, DR BEN Neely Consulting Unavailable CARLOS Call, DR HODGSON Consulting Unavailable FAWWAD, HOLLOWAY H Primary Care Unavailable MERCEDES MARTINEZ Attending Unavailable KEVIN CUNNINGHAMO Consulting Unavailable JULIA ., MERCEDES Admitting Unavailable CECILIA STRATTON Consulting Unavailable JULIA ., MERCEDES Consulting Unavailable FAWWAD, HOLLOWAY H Primary Care Unavailable JANICE, DR BEN Neely Consulting Unavailable JULIA ., MERCEDES Admitting Unavailable JULIA ., MERCEDES Attending Unavailable JULIA ., MERCEDES Consulting Unavailable FAWWAD, [...] H Primary Care Unavailable HAY ., DR HODGSON Admitting Unavailable HAY ., DR HODGSON Consulting [...] Unavailable FAWWAD, HOLLOWAY H Primary Care Unavailable ULMER, DR WINSOME Tse Consulting Unavailable FAWWAD, HOLLOWAY H Attending Unavailable FAWWAD, HOLLOWAY H Admitting Unavailable FAWWAD, HOLLOWAY H Primary Care Unavailable [facility], DR BEN Neely Consulting Unavailable FAWWAD, HOLLOWAY H Consulting Unavailable Chang Barba Attending Unavailable Chang Barba Referring Unavailable Dr. Paul Jarvis Robert Primary Care Unava ilable Dary Cuevas Unavailable Hola STEIN, Primary Care Provider Chang Barba DO Unavailable [phone] Ilia Hernandez MD Unavailable Mark SCIENTOLOGIST, Reynold Unavailable Ilia Hernandez MD Primary Care Provider Mark SCIENTOLOGIST, Reynold Unavailable Ilia Hernandez MD Unavailable CHANG BARBA Attending Unavailable FAWWAD, HOLLOWAY Primary Care Unavailable Hola STEIN, Unavailable FLAVIA FRAUSTO Attending Unavailable FAWWAD, Attending Unavailable FAWWAD, HOLLOWAY Attending Unavailable BEN BROWN Attending Unavailable EDDIE BRAXTON Attending Unavailable FAWWAD, HOLLOWAY Referring Unavailable REYNOLD FLORES Attending Unavailabl FLAVIA Aggarwal Attending Unavailable FLAVIA FRAUSTO Attending Unavailable ABDI ORTIZ Attending Unavailable ABDI ORTIZ Referring Unavailable REYNOLD FLORES Attending Unavailkeny Amado MD, Elijah Joaquin Attending Unavailable Allergies Allergy Classification Reported Allergen(s) Allergy Type Date of Onset Reaction(s) Facility (10 sources) Angiotensin Converting Enzyme (Rakel) Inhibitors; Translations: [RAKEL Inhibitors] Allergy to drug (finding) 3 [facility] 3 Repository (20 sources) Diclofenac; Translations: [diclofenac] Drug Allergy 7 Anaphylaxis, Unknown, Other, Shortness of breath [facility] (11 sources) Lisinopril; Translations: [lisinopril] Drug Allergy 3 C[facility] 250 DO Work Phone: (20 sources) metFORMIN; Translations: [metformin] Drug Allergy 4 Other: See Comments, Cough, Other, Unknown [facility] (9 sources) Thimerosal and Related; Translations: [Thimerosal and Related] Allergy to drug (finding) [facility] 250 DO Work Phone: (7 sources) Other Allergy to substance (finding) Cough [facility] 250 DO Work Phone: (1 source) Diclofenac Drug Allergy [facility] Repository (1 source) metFORMIN Drug Allergy 3 [facility] Repository (1 source) Angiotensin-con verting enzyme inhibitor agent Drug Intolerance 3 [facility] (16 sources) Thimerosal; Translations: [THIMEROSAL] Drug Allergy 3 [facility] Work Phone: (14 sources) Angiotensin-con verting enzyme inhibitor agent Drug Intolerance 3 [facility] (12 sources) Lisinopril Propensity to adverse reactions 4 [facility] Medications Current Medications Medication Drug Class(es) Dates [...] by mouth. baclofen 10 mg oral tablet (20 sources) gamma-Aminobutyri c Acid-ergic Agonist Start: 11-17-2020 [...] t ablet glimepiride 4 mg oral tablet (19 sources) Sulfonylurea Start: 10-21-20 take 1 tablet [...] let 0.1 ml glucagon 5 mg/ml auto-injector (11 sources) Antihypoglycemic Agent Start: 024 End: 025 [...] Pump (Omnipod DASH Pods, Gen 4,) misc (15 sources) Start: 10-21-2024 Insulin Disposable Pump (Omnipod DASH Pods, Gen 4,) [facility] Indications: Type 2 diabetes mellitus with hyperglycemia, with long-term current use of insulin (CMS/HCC) USE DIRECTED * change pod EVERY 72 HOURS * 30 each 1 10/21/2024 Active Start: 09-18-2024 Insulin Dispos able Pump (Omnipod DASH Pods, Gen 4,) [facility] Indications: Type 2 diabetes mellitus with hyperglycemia, [...] 3 ml liraglutide 6 mg/ml pen injector (20 sources) GLP-1 Receptor Agonist Start: 01-29-2021 End: 02-07-2024 liraglutide (Victoza 2-[place]) 0.6 mg/0.1 mL (18 mg/3 mL) injection Inject under the skin. 01/29/2021 02/07/2024 Discontinued (Therapy completed) inject 1.2 mg by sub cutaneous injection once daily Victoza 18 MG/3ML 1.2 mg Subcutaneous Once a day Active meclizine hydrochloride 25 mg oral tablet (9 sources) Antiemetic Start: 10-01-2024 End: 11-30-2024 take [...] NO RELIEF CALL 911) 02/07/2024 Active Start: 04-17-2024 nitroglycerin (Nitrostat) 0.4 mg SL tablet Indications: [...] or 0.5 MG/DOSE, 2 MG/3ML solution pen-injector (14 sources) Start: 10-28-19 inject 0.5 mg by [...] Jul, Active pregabalin 75 mg oral capsule (13 sources) take 1 capsule by mouth in the morning pregabalin (Lyrica) 75 MG capsule Take 75 mg by mouth in the morning and 75 mg before bedtime. Active pregabalin (LYRI CA) 50 mg capsule Lyrica 50 mg capsule 0 Active Comment on above: Lyrica 50 mg capsule propranolol hydrochloride 20 mg oral tablet (15 sources) beta-Adrenergic Sabina Start: End: take 1 tablet by mouth in the [...] week. Active spironolactone 25 mg oral tablet (20 sources) Aldosterone Antagonist Start: take 1 tablet by mouth once daily spironolactone (Aldactone) 25 MG tablet Take 25 mg by mouth Daily 09/13/2023 Active Start: 11-16-2020 take 1 tablet by santhosh th once daily Spironolactone 25 MG Oral Tablet TAKE 1 TABLET BY MOUTH EVERY DAY Quantity: 90 Refills: 3 Ordered: 30-Nov-2022 Lior Teran APRN-Josey BUSCH Start : 16-Nov-2020 Active Comment on above: [...] Comment on above: TAKE 1 TABLET BY [facility] 1 HOUR BEFORE SEXUAL ACTIVITY NEEDED. SITagliptin 100 mg oral tablet (1 source) Dipeptidyl Peptidase 4 Inhibitor SITagliptin phosphat e (JANUVIA) 100 mg tablet Januvia 100 mg tablet 0 Active Comment on above: Januvia 100 mg table t Problems Active Problems Problem Classification Problem Date Documented Da te Episodic/Chronic Conditions associated with dizziness or vertigo (20 sources) Vertigo; Translations: [Dizziness and giddiness] Onset: 10-31-2024 10-31-2024 Episodic Coronary atherosclerosis and other heart disease (20 sources) Ischemic cardiomyopathy; Translations: [Atherosclerotic heart disease of [place] coronary artery without angina pectoris] Onset: 11-01-2018 02-07-2024 Chronic Diabetes mellitus with complications (3 sources) Hyperglycemia due to type 2 diabetes mellitus; Translations: [Type 2 diabetes mellitus with hyperglycemia] 09-10-2024 Chronic Diabetes mellitus without complication (20 sources) Diabetes mellitus; Translations: [Diabetes mellitus without mention of complication, type II or unspecified type, not stated as uncontrolled] Onset: 04-30-2014 Chronic Diabetes mellitus without complication (15 sources) Presence of insulin pump (external) (internal); Translations: [Insulin pump present] Onset: 01-02-2023 08-26-2024 Episodic Disorders of lipid metabolism (20 sources) Hyperlipidemia, unspecified; Translations: [Hyperlipidemia] Onset: 11-01-2018 02-07-2024 Chronic Essential hypertension (20 sources) Essential (primary) hypertension; Translations: [Hypertensive disorder] Onset: 08-26-2022 02-07-2024 Chronic Nutritional deficiencies (14 sources) Vitamin D deficiency; Translations: [Vitamin D deficiency, unspecified] Onset: 08-26-2024 08-26-2024 Chronic Osteoarthritis (14 sources) Osteoarthritis of right hip joint; Translations: [Unilateral primary osteoarthritis, right hip] Onset: 08-08-2018 01-03-2024 Chronic Other aftercare (1 source) prison (current) use of aspirin; Translations: [PLANT ETIOLOGIST CURRENT USE OF ASPIRIN] Onset: 01-02-2023 Episodic Other aftercare (1 source) Other fpc (current) drug therapy; Translations: [OTH PLANT ETIOLOGIST CURRENT DRUG THERAPY] Onset: 01-02-2023 Episodic Other aftercare (14 sources) Long-term current use of insulin; Translations: [prison (current) use of insulin] Onset: 08-26-2024 08-26-2024 Episodic Other connective tissue disease (1 source) Arthrodesis status; Translations: [ARTHRODESIS STATUS] Onset: 01-02-2023 Episodic Other endocrine disorders (2 sources) Hypoglycemia; Translations: [Hypoglycemia, unspecified] 09-10-2024 Chronic Other hereditary and degenerative nervous system conditions (18 sources) Essential tremor; Translations: [Essential tremor] Onset: 03-04-2024 08-20-2024 Chronic Other nervous system disorders (1 source) Other chronic pain; Translations: [OTHER CHRONIC PAIN] Onset: 05-02-2022 Chronic Other nutritional; endocrine; and metabolic disorders (5 sources) Body mass index 30+ - obesity; Translations: [Obesity, unspecified] Onset: 02-07-2024 02-07-2024 Chronic Other nutritional; endocrine; and metabolic disorders (18 sources) Obesity; Translations: [Obesity, unspecified] Onset: 08-26-2024 [...] adult] Onset: 02-07-2024 Chronic Residual codes; unclassified (14 sources) Sleep apnea; Translations: [Sleep apnea, unspecified] [...] angioplasty status] Onset: 02-04-2022 Episodic Mood disorders (14 sources) Mood disorders Onset: 03-04-2024 03-04-2024 Nonspecific chest pain (20 sources) Anterior chest wall pain; Translations: [Other chest pain] Onset: 02-02-2022 Episodic Other aftercare (3 sources) terminal operator (current) use of insulin; Translations: [PLANT ETIOLOGIST CURRENT USE OF INSULIN] Onset: 01-02-2023 Episodic Other injuries and conditions due to external causes (1 source) Other injury of unspecified body region, initial encounter; Translations: [OTHER INJURY UNS BODY REGION INIT] Onset: 08-26-2022 Episodic Other injuries and conditions due to external causes (14 sources) Injury of finger of right hand; Translations: [Unspecified injury of right wrist, hand and finger(s), initial encounter] Onset: 05-27-2024 05-27-2024 Episodic Other lower respiratory disease (4 sources) Respiratory disorder, unspecified; Translations: [RESPIRATORY DISORDER UNSPECIFIED] Onset: 03-29-2022 Episodic Other lower respiratory disease (1 source) Pleurodynia; Translations: [PLEURODYNIA] Onset: 02-04-2022 Episodic Other skin disorders (14 sources) Suspected malignant pigmented skin lesion; Translations: [Disorder of pigmentation, unspecified] Onset: 03-04-2024 03-04-2024 Episodic Other upper respiratory infections (19 sources) Acute pharyngitis, unspecified; Translations: [Acute upper [...] on 09-10-2024 Glucose Blood, POC 155 mg/dL [facility] - Hematology and Cell countson 09-10-2024 HbA1c (Bld) [Mass fraction] 6.9 % [facility] No Panel InformationOrdered By: Idalmis Srera on 09-10-2024 [facility] Healthcar e COVID + FLU Quick Testingon 08-07-2023 SARS-CoV-2 (COVID-19) RNA BARNEY+probe Ql (Unsp spec) Positive [employer] Other COVID + FLU Quick Testing Negative [employer] Other Office Visit (Cardiology)on 02-14-2023 Follow-up visit Diagnoses/Problems Assessed History of PTCA (V45.82) (Z98.61) History of WI (myocardial infarction) (412) (I25.2) Ischemic cardiomyopathy (414.8) [...] High Sensitivity; Status:Active - Retrospective Authorization; Requested for:[id number]; Lipid Panel; Status:Active - Retrospective Authorization; Requested for:15Jan2024; Ischemic cardiomyopathy Renew: Aspirin Low Dose 81 MG Oral Tablet Delayed Release; TAKE 1 TABLET BY MOUTH DAILY SocHx: Never a smoker Tobacco Use Screening; Status:Complete; Done: 14Feb2023 Two-vessel coronary artery disease Renew: Atorvastatin Calcium [...] nitrate usage or hospitalizations. He sustained anterior WI 2013 with PCI of the LAD, subsequent [...] 1 TABLET BY MOUTH TWICE DAILY Drug Dillard Unil Lancets 33Guse test blood sugar five times DAILY FreeStyle [place] 2 [place] DeviceUSE DIRECTED Nitroglycerin 0.4 MG Sublingual Tablet [...] negative for complaint. Vitals Vital Signs Recorded: [id number] 10:09AM Heart Rate66, L Radial Skphvijr376, LUE Tteozzskh89, LUE Height5 ft 10 in Pphzfh414 lb BMI Unulnjmmhr16.15 kg/m2 BSA Calculated2.28 Tobacco Useb) No PHQ-2 #1. Over the last 2 weeks have you felt down, depressed or hopeless? (If yes, answer PHQ-9 (more content not included)... Normal [employer] Tobacco Screening.on 023 Adult depression screening assessment No [facility] Heart-Velti 250 DO Work Phone: Fall risk assessment c) Not medically indicated [facility] Aneumed-Velti 250 DO Work Phone: Tobacco use status CP b) No [facility] 250 DO Work Phone: Covid-19 PCR ([facility])on 12-21 SARS-CoV-2 (COVID-19) RNA BARNEY+probe Ql (Unsp spec) Not detected Normal NOT DETECTED [facility] Comment on above: Result Comment: When [...] for this test is supported by the Behavioral Health Consultant of Health and Human Service's declaration that [...] longer be used). Performed By: #### C VDTB ####[facility] [address] [place] [address]Dr. Magdalene Mckenzie GROUP A STREP CULTUREon 12-21 S. pyogenes Ag Ql (Unsp spec) Culture Observations: NEGATIVE FOR GROUP A STREPTOCOCCUS. Normal [facility] Comment on above: Performed By: #### S CLEM VILLANUEVATCX ####[facility] [address] [place] [id number]. Magdalene Mckenzie STREPT SCREENon 12-31-2022 STREP SCREEN A Negative Normal NEGATIVE [facility] Comment on above: Performed By: #### S CLEM VILLANUEVATCX ####[facility] [address] [place] [id number]. Magdalene Mckenzie XR CSPINE 2_3 VIEWSon 2021 [...] multilevel moderate degenerative changes. Electronically authenticated by: BNE CAMACHO Date: 2022-09-29 06:53 [facility] Office Visit (PAINLN ) JANIS GAMING ([id number]) 1960 M Date Time Provider Department 09/22/22 [...] supervised home exercise program (HEP): No 5. 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 EXAMINATION: [id number] ERIOR: Scoliosis: No Pelvic Tilt: No Leg [...] right. Trache (more content not included)... Normal [facility] CT CSPINE WO CONon 2 CT CSPINE WO CON EXAMINATION: CT CSPINE WO CON HISTORY: The patient was riding [...] SIMON RENDON Date: 2022-08-24 16:56 Normal [facility] CT HEAD WO CONon 08-24-2022 CT [...] GONZALO BERRY Date: 2022-08-24 16:40 Normal [facility] CT LSPINE WO CONon 2 CT [...] by: EMORY NICOLE Date: 2022-08-24 16:58 Normal [facility] 06-22-2022 CNPN Telephone (PAINLN) JANIS GAMING ([id number]) 1960 M Date Time Provider Department 06/22/22 KATTY JEAN BAPTISTE During your visit today, we recorded the following information about you: Gardenia Man MA 06/22/2022 3:24 PM Signed Patient was advised of the following: This is a follow up phone call regarding your appointment with Dr Jean Baptiste, which you are scheduled to see at [facility] on 06/23/2022. 1) Have you been evaluated [...] need to reschedule please call us at [phone]. Left VM with new patient policy advised to call office with any questions or concerns Gradenia Man MA Allergies As of Date: 06/22/2022 [...] Encounter Status:Closed by GARDENIA MAN on 06/22/22 Normal [facility] XR CHEST 1 Von 04-27-2022 XR CHEST [...] BEN CAMACHO Date: 2022-04-27 11:19 Normal [facility] Covid-19 PCR ([facility])on SARS-CoV-2 (COVID-19) RNA BARNEY+probe Ql (Unsp spec) Not detected Normal NOT DETECTED [facility] Comment on above: Result Comment: This test is not yet approved or cleared by the [place] FDA. When there are no FDA-approved or cleared tests available, and other criteria are met, FDA can make tests available under an emergency access mechanism called an Emergency Use Authorization (EUA). The EUA for this test is supported by the [place] of Health and Human Service's (HHS's) declaration [...] consistent with SARS-CoV-2. Performed By: #### C [facility] ####[id number] [place], [place] [address]QgJakub Magdalene Jonah XR CHEST 2 Von 03-29-2022 XR CHEST [...] TWILA BRIZUELA Date: 2022-03-29 15:17 Normal [facility] CBC AUTO DIFFon 03-19-2022 BASO # 0.1 103/ul Normal 0.0-0.1 [facility] Comment on above: Performed By: #### C BC ####[facility] [address] [place], [place] [address]DrJakub Mckenzie Basophils/100 WBC (Bld) 0.5 % Normal 0.2-2.0 [facility] Comment on above: Performed By: #### C BC ####[facility] [address] [place], [place] [address]DrJakub Mckenzie EO # 0.0 103/ul Normal 0.0-0.7 [facility] Comment on above: Performed By: #### C BC ####[facility] [address] [place], [place] [address]DrJakub Mckenzie Eosinophils/100 WBC (Bld) 0.2 % Critically low 0.9-7.0 [facility] Comment on above: Performed By: #### C BC ####[facility] [address] [place], [place] [address]DrJakub Mckenzie Erythrocyte distribution width (RBC) [Ratio] 12.6 % Normal 11.0-15.0 [facility] Comment on above: Performed By: #### C BC ####[facility] [address] [place], [place] [address]DrJakub Mckenzie Hematocrit (Bld) [Volume fraction] 46.1 % Normal 42.0-54.0 [facility] Comment on above: Performed By: #### C BC ####[facility] [address] [place], [place] [address]DrJakub Mckenzie Hemoglobin (Bld) [Mass/Vol] 15.4 g/dL Normal 14.0-18.0 [facility] Comment on above: Performed By: #### C BC ####[facility] [address] [place] [address]DrJakub Mckenzie IG # 0.06 10e3/ul Critically high 0.00-0.03 [facility] Comment on above: Performed By: #### C BC ####[facility] [address] [place] [address]DrJakub Mckenzie IG % 0.6 % Critically high 0.0-0.5 [facility] Comment on above: Performed By: #### C BC ####[facility] [address] [place], [place] [address]DrJakub Mckenzie LYMPH # 1.2 103/ul Normal 1.2-3.8 [facility] Comment on above: Performed By: #### C BC ####[facility] [address] [place], [place] [address]DrJakub Mckenzie Lymphocytes/100 WBC (Bld) 11.5 % Critically low 20.5-60.0 [facility] Comment on above: Performed By: #### C BC ####[facility] [address] [place], [place] [address]DrJakub Mckenzie MANUAL DIFF REQ NO Normal [facility] Comment on above: Performed By: #### C BC ####[facility] [address] [place], [place] [address]DrJakub Mckenzie MCH (RBC) [Entitic mass] 29.2 pg Normal 25.9-34.0 [facility] Comment on above: Performed By: #### C BC ####[facility] [address] [place], [place] [address]DrJakub Mckenzie MCHC (RBC) [Mass/Vol] 33.4 g/dL Normal 29.9-35.2 [facility] Comment on above: Performed By: #### C BC ####[facility] [address] [place], [place] [address]DrJakub Mckenzie MCV (RBC) [Entitic vol] 87.5 fL Normal 80.0-94.0 [facility] Comment on above: Performed By: #### C BC ####[facility] [address] [place] [phone] Magdalene Mckenzie MONO # 0.7 103/ul Normal 0.3-0.8 [facility] Comment on above: Performed By: #### C BC ####[facility] [address] [place] [id number] Magdalene Jonah Monocytes/100 WBC (Bld) 6.1 % Normal 1.7-12.0 [facility] Comment on above: Performed By: #### C BC ####[facility] [address] [place], [place] [address]DrJakub Magdalene Mckenzie NEUT # 8.7 103/ul Critically high 1.4-6.5 [facility] Comment on above: Performed By: #### C BC ####[facility] [address] [place], [place] [address]DrJakub Magdalene Jonah Neutrophils/100 WBC (Bld) 81.1 % Critically high 43.0-75.0 [facility] Comment on above: Performed By: #### C BC ####[facility] [address] [place], [place] [id number] Magdalene Mckenzie Platelet mean volume (Bld) [Entitic vol] 9.1 fL Critically low 9.5-13.5 [facility] Comment on above: Performed By: #### C BC ####[facility] [address] [place] [id number] Mckinnonlakia Jonah PLT 215 103/ul Normal 150-450 [facility] Comment on above: Performed By: #### C BC ####[facility] [address] [place], [place] [id number] Mckenzie RBC 5.27 106/ul Normal 4.70-6.10 [facility] Comment on above: Performed By: #### C BC ####[facility] [address] [place], [place] [address]DrJakub Mckenzie WBC 10.7 103/ul Normal 4.0-11.0 [facility] Comment on above: Performed By: #### C BC ####[facility] [address] [place], [place] [address]Au. [address] CT ABD/PELVIS WO CONon 03-19 CT ABD/PELVIS [...] WINNIE CUNNINGHAM Date: 2022-03-19 19:03 Normal [facility] PROF 14(COMP METB)on 022 Albumin [Mass/Vol] 4.1 g/dL Normal 3.4-5.0 [facility] Comment on above: Performed By: #### C MP ####[facility] [address] [place] [id number]. Pratibhalakia Mckenzie Albumin/Globulin [Mass ratio] 1.4 {ratio} Normal [facility] Comment on above: Performed By: #### C MP ####[facility] [address] [place], [place] [address]Sa. Magdalene Mckenzie ALP [Catalytic activity/Vol] 101 U/L Normal 46-116 [facility] Comment on above: Performed By: #### C MP ####[facility] [address] [place] [id number]. Magdalene Mckenzie ALT [Catalytic activity/Vol] 36 U/L Normal 16-63 [facility] Comment on above: Performed By: #### C MP ####[facility] [address] [place] [id number]. Magdalene Mckenzie Anion gap [Moles/Vol] 11.5 mmol/L Normal [facility] Comment on above: Performed By: #### C MP ####[facility] [address] [place] [id number]. Magdalene Jonah AST [Catalytic activity/Vol] 14 U/L Critically low 15-37 [facility] Comment on above: Performed By: #### C MP ####[facility] [address] [place] [id number]. Magdalene Jonah Bilirubin [Mass/Vol] 0.3 mg/dL Normal 0.2-1.0 [facility] Comment on above: Performed By: #### C MP ####[facility] [address] [place], [place] [address]Dr. Magdalene Mckenzie Calcium [Mass/Vol] 9.0 mg/dL Normal 8.5-10.1 [facility] Comment on above: Performed By: #### C MP ####[facility] N[address] [place], [place] [address]Dr. Magdalene Jonah Chloride [Moles/Vol] 104 mmol/L Normal 98-107 [facility] Comment on above: Performed By: #### C MP ####[facility] [address] [place] [address]Dr. Pratibhalakia Jonah CO2 [Moles/Vol] 25.8 mmol/L Normal 21.0-32.0 [facility] Comment on above: Performed By: #### C MP ####[facility] [address] [id number]. Magdalene Jonah Creatinine [Mass/Vol] 1.27 mg/dL Normal 0.70-1.30 [facility] Comment on above: Performed By: #### C MP ####[facility] [address] [address]Dr. Magdalene Mckenzie EGFR-AF FILIPINO >60 Normal >=60 [facility] Comment on above: Performed By: #### C MP ####[facility] [address] [address]Dr. Magdalene Mckenzie EGFR-NON AF FILIPINO 57 mL/min/1.73m2 Critically low >=60 [facility] Comment on above: Performed By: #### C MP ####[facility] [address] [place] [address]Dr. Magdalene Mckenzie Globulin (S) [Mass/Vol] 3.0 g/dL Normal [facility] Comment on above: Performed By: #### C MP ####[facility] [address] [address]Dr. Magdalene Mckenzie Glucose [Mass/Vol] 258 mg/dL Critically high 74-106 [facility] Comment on above: Performed By: #### C MP ####[facility] [address] [place], [place] [address]Dr. Magdalene Mckenzie Potassium [Moles/Vol] 4.3 mmol/L Normal 3.5-5.1 [facility] Comment on above: Performed By: #### C MP ####[facility] [address] [place], [place] [address]Dr. Magdalene Mckenzie Protein [Mass/Vol] 7.1 g/dL Normal 6.4-8.2 [facility] Comment on above: Performed By: #### C MP ####[facility] [address] [place], [place] [address]Dr. Magdalene Mckenzie Sodium [Moles/Vol] 137 mmol/L Normal 136-145 [facility] Comment on above: Performed By: #### C MP ####[facility] [address] [place], [place] [address]Dr. Magdalene Mckenzie Urea nitrogen [Mass/Vol] 20.0 mg/dL Critically high 7.0-18.0 [facility] Comment on above: Performed By: #### C MP ####[facility] [address] [place], [place] [address]Dr. Magdalene Mckenzie Urea nitrogen/Creatinine [Mass ratio] 15.7 mg/mg Normal [facility] Comment on above: Performed By: #### C MP ####[facility] [address] [place], [place] [address]NnDr. Magdalene Mckenzie XR CHEST 1 Von 03-19-2022 [...] SONALI TOMAS Date: 2022-03-19 18:49 Normal [facility] CARDIAC SYMONE ADMITon 022 CK [Catalytic activity/Vol] 128 U/L Normal 55-170 [facility] Comment on above: Performed By: #### C DIRK, CMP #### [facility] [address] [address] [address] Magdalene Mckenzie CK.MB [Mass/Vol] 1.28 ng/mL Normal <=2.37 [facility] Comment on above: Performed By: #### C DIRK, CMP #### [facility] [address] [address] [address] Magdalene Mckenzie HSTROP 9.1 pg/mL Normal 4.0-42.2 [facility] Comment on above: Result Comment: CUT- OFF POINTS HAVE BEEN ESTABLISHED BASED ON THE FOURTH UNIVERSAL DEFINITIONS OF MYOCARDIAL INFARCTION. THE UPPER REFERENCE LIMIT (URL) OF TROPONIN, DEFINED THE 99TH PERCENTILE OF cTnI DISTRIBUTION IN A REFERENCE POPULATION, HAS BEEN CONFIRMED THE DECISION THRESHOLD FOR [place] DIAGNOSIS. Performed By: #### C DIRK, CMP #### [facility] [address] [address] [address] Magdalene Mckenzie CROW 66.0 ng/mL Normal <=121.0 [facility] Comment on above: Performed By: #### C DIRK, CMP #### [facility] [address] [address] [address] Magdalene Mckenzie CBC AUTO DIFFon 02-02-2022 BASO # 0.0 103/ul Normal 0.0-0.1 [facility] Comment on above: Performed By: #### C BC #### [facility] [address] [place] [address] Dr. Magdalene Mckenzie Basophils/100 WBC (Bld) 0.7 % Normal 0.2-2.0 [facility] Comment on above: Performed By: #### C BC #### [facility] [address] [place] [address] Dr. Magdalene Mckenzie EO # 0.1 103/ul Normal 0.0-0.7 [facility] Comment on above: Performed By: #### C BC #### [facility] [address] [place] [address] Dr. Magdalene Mckenzie Eosinophils/100 WBC (Bld) 2.4 % Normal 0.9-7.0 [facility] Comment on above: Performed By: #### C BC #### [facility] [address] [place] [address] Dr. Magdalene Mckenzie Erythrocyte distribution width (RBC) [Ratio] 13.4 % Normal 11.0-15.0 [facility] Comment on above: Performed By: #### C BC #### [facility] [address] [place] [address] Dr. Magdalene Mckenzie Hematocrit (Bld) [Volume fraction] 44.9 % Normal 42.0-54.0 [facility] Comment on above: Performed By: #### C BC #### [facility] [address] [place] [address] Dr. Magdalene Mckenzie Hemoglobin (Bld) [Mass/Vol] 14.8 g/dL Normal 14.0-18.0 [facility] Comment on above: Performed By: #### C BC #### [facility] [address] [place] [address] Dr. Magdalene Mckenzie IG # 0.05 10e3/ul Critically high 0.00-0.03 [facility] Comment on above: Performed By: #### C BC #### [facility] [address] [place] [address] Dr. Magdalene Mckenzie IG % 0.9 % Critically high 0.0-0.5 [facility] Comment on above: Performed By: #### C BC #### [facility] [address] [place] [address] Dr. Magdalene Mckenzie LYMPH # 1.4 103/ul Normal 1.2-3.8 [facility] Comment on above: Performed By: #### C BC #### [facility] [address] [place] [address] Dr. Magdalene Mckenzie Lymphocytes/100 WBC (Bld) 23.7 % Normal 20.5-60.0 [facility] Comment on above: Performed By: #### C BC #### [facility] [address] [place] [address] Dr. Magdalene Mckenzie MANUAL DIFF REQ NO Normal [facility] Comment on above: Performed By: #### C BC #### [facility] [address] [place] [address] Dr. Magdalene Mckenzie MCH (RBC) [Entitic mass] 29.3 pg Normal 25.9-34.0 [facility] Comment on above: Performed By: #### C BC #### [facility] [address] [place] [address] Dr. Magdalene Mckenzie MCHC (RBC) [Mass/Vol] 33.0 g/dL Normal 29.9-35.2 [facility] Comment on above: Performed By: #### C BC #### [facility] [address] [place] [address] Dr. Magdalene Mckenzie MCV (RBC) [Entitic vol] 88.9 fL Normal 80.0-94.0 [facility] Comment on above: Performed By: #### C BC #### [facility] [address] [place] [address] Dr. Magdalene Mckenzie MONO # 0.5 103/ul Normal 0.3-0.8 [facility] Comment on above: Performed By: #### C BC #### [facility] [address] [place] [address] Dr. Magdalene Mckenzie Monocytes/100 WBC (Bld) 9.1 % Normal 1.7-12.0 [facility] Comment on above: Performed By: #### C BC #### [facility] [address] [place] [address] Dr. Magdalene Mckenzie NEUT # 3.7 103/ul Normal 1.4-6.5 [facility] Comment on above: Performed By: #### C BC #### [facility] [address] [place] [address] Dr. Magdalene Mckenzie Neutrophils/100 WBC (Bld) 63.2 % Normal 43.0-75.0 [facility] Comment on above: Performed By: #### C BC #### [facility] [address] [place] [address] Dr. Magdalene Mckenzie Platelet mean volume (Bld) [Entitic vol] 9.0 fL Critically low 9.5-13.5 [facility] Comment on above: Performed By: #### C BC #### [facility] [address] [place] [address] Dr. Magdalene Mckenzie PLT 214 103/ul Normal 150-450 [facility] Comment on above: Performed By: #### C BC #### [facility] [address] [place] [address] Dr. Magdalene Mckenzie RBC 5.05 106/ul Normal 4.70-6.10 [facility] Comment on above: Performed By: #### C BC #### [facility] [address] [place] [address] Dr. Magdalene Mckenzie WBC 5.8 103/ul Normal 4.0-11.0 [facility] Comment on above: Performed By: #### C BC #### [facility] [address] [place] [address] Dr. Magdalene Mckenzie CTA CHEST WO W CONon 13- 022 CTA CHEST WO W CON EXAMINATION: [...] BEN CAMACHO Date: 2022-02-02 09:21 Normal [facility] PROF 14(COMP METB)on 022 Albumin [Mass/Vol] 3.9 g/dL Normal 3.4-5.0 [facility] Comment on above: Performed By: #### C DIRK, CMP #### [facility] [address] [place] [address] Dr. Magdalene Mckenzie Albumin/Globulin [Mass ratio] 1.4 {ratio} Normal [facility] Comment on above: Performed By: #### C DIRK, CMP #### [facility] [address] [address] [address] Magdalene Mckenzie ALP [Catalytic activity/Vol] 80 U/L Normal 46-116 [facility] Comment on above: Performed By: #### C KHADARM, CMP #### [facility] [address] [address] [address] Magdalene Mckenzie ALT [Catalytic activity/Vol] 28 U/L Normal 16-63 [facility] Comment on above: Performed By: #### C MADM, CMP #### [facility] [address] [address] [address] Magdalene Mckenzie Anion gap [Moles/Vol] 9.8 mmol/L Normal [facility] Comment on above: Performed By: #### C MADM, CMP #### [facility] [address] [address] [address] Magdalene Mckenzie AST [Catalytic activity/Vol] 16 U/L Normal 15-37 [facility] Comment on above: Performed By: #### C MADM, CMP #### [facility] [address] [address] [address] Magdalene Mckenzie Bilirubin [Mass/Vol] 0.3 mg/dL Normal 0.2-1.3 [facility] Comment on above: Performed By: #### C MADM, CMP #### [facility] [address] [address] [address] Magdalene Mckenzie Calcium [Mass/Vol] 8.6 mg/dL Normal 8.5-10.1 [facility] Comment on above: Performed By: #### C MADM, CMP #### [facility] [address] [address] [address] Magdalene Mckenzie Chloride [Moles/Vol] 109 mmol/L Critically high 98-107 [facility] Comment on above: Performed By: #### C MADM, CMP #### [facility] [address] [address] [address] Magdalene Mckenzie CO2 [Moles/Vol] 29.3 mmol/L Normal 22.0-30.0 [facility] Comment on above: Performed By: #### C MADM, CMP #### [facility] [address] [address] [address] Magdalene Mckenzie Creatinine [Mass/Vol] 1.59 mg/dL Critically high 0.66-1.25 [facility] Comment on above: Performed By: #### C MADM, CMP #### [facility] [address] [address] [address] Magdalene Mckenzie EGFR-AF FILIPINO 54 mL/min/1.73m2 Critically low >=60 [facility] Comment on above: Performed By: #### C MADM, CMP #### [facility] [address] [address] [address] Magdalene Mckenzie EGFR-NON AF FILIPINO 44 mL/min/1.73m2 Critically low >=60 [facility] Comment on above: Performed By: #### C KHADARM, CMP #### [facility] [address] [address] [address] Magdalene Mckenzie Globulin (S) [Mass/Vol] 2.8 g/dL Normal [facility] Comment on above: Performed By: #### C KHADARM, CMP #### [facility] [address] [place] [address] Dr. Magdalene Mckenzie Glucose [Mass/Vol] 132 mg/dL Critically high 74-106 [facility] Comment on above: Performed By: #### C KHADARM, CMP #### [facility] [address] [place] [address] Dr. Magdalene Mckenzie Potassium [Moles/Vol] 4.1 mmol/L Normal 3.4-5.0 [facility] Comment on above: Performed By: #### C DIRK, CMP #### [facility] [address] [place] [address] Dr. Magdalene Mckenzie Protein [Mass/Vol] 6.7 g/dL Normal 6.1-8.2 [facility] Comment on above: Performed By: #### C DIRK, CMP #### [facility] [address] [place] [address] Dr. Magdalene Mckenzie Sodium [Moles/Vol] 144 mmol/L Normal 137-145 [facility] Comment on above: Performed By: #### C DIRK, CMP #### [facility] [address] [place] [address] Dr. Magdalene Mckenzie Urea nitrogen [Mass/Vol] 20.0 mg/dL Critically high 7.0-18.0 [facility] Comment on above: Performed By: #### C DIRK, CMP #### [facility] [address] [place] [address] Dr. Magdalene Mckenzie Urea nitrogen/Creatinine [Mass ratio] 12.6 mg/mg Normal [facility] Comment on above: Performed By: #### C DIRK, CMP #### [facility] [address] [place] [address] Dr. Magdalene Mckenzie PROTIMEon 02-02-2022 INR Coag (PPP) [Relative time] 1.00 {INR} Normal [facility] Comment on above: Performed By: #### P T, PTT #### [facility] [address] [address] [address] Magdalene Mckenzie INR GUIDELINES SEE BELOW Normal [facility] Comment on above: Result Comment: TERESE RED INR: 2.0 - 3.0 CONDITIONS NOT LISTED BELOW 2.5 - 3.5 FOR PROSTHETIC HEART VALVE REPLACEMENT 2.5 - 3.5 RECURRENT THROMBOSIS Performed By: #### P T, PTT #### [facility] [address] [address] [address] Magdalene Mckenzie PT Coag (PPP) [Time] 10.8 s Normal 9.0-11.6 [facility] Comment on above: Performed By: #### P T, PTT #### [facility] [address] [address] [address] Magdalene Mckenzie PTTon 02-02-2022 aPTT Coag (Bld) [Time] 28.5 s Normal 22.3-36.2 [facility] Comment on above: Performed By: #### P T, PTT #### [facility] [address] [address] [address] Magdalene Mckenzie TROPONIN, HIGH SENSITIVITYon 02-02-2022 HSTROP 7.4 pg/mL Normal 4.0-42.2 [facility] Comment on above: Result Comment: CUT- OFF POINTS HAVE BEEN ESTABLISHED BASED ON THE FOURTH UNIVERSAL DEFINITIONS OF MYOCARDIAL INFARCTION. THE UPPER REFERENCE LIMIT (URL) OF TROPONIN, DEFINED THE 99TH PERCENTILE OF cTnI DISTRIBUTION IN A REFERENCE POPULATION, HAS BEEN CONFIRMED THE DECISION THRESHOLD FOR [place] DIAGNOSIS. Performed By: #### H STROPN ####[facility] [address] [address]Dr. Magdalene Mckenzie XR CHEST 1 Von 02-02-2022 [...] BEN CAMACHO Date: 2022-02-02 08:59 Normal [facility] Tobacco Screening.on 022 Tobacco use status CPHS b) No -[facility] DO Work Phone: Danny 11-14-2019 ALT [Catalytic activity/Vol] 56 U/L High 10 - 52 [facility] Comment on above: Result Comment: Cheryl ents treated with Sulfasalazine may generate falsely decreased results for ALT. Performed By: #### A LT #### [address] [address] Donna 11-14-2019 AST [Catalytic activity/Vol] 33 U/L Normal 9 - 39 [facility] Comment on above: Performed By: #### A ST #### [address] [address] CREATININEon 11-14-2019 Creatinine [Mass/Vol] 1.27 mg/dL Normal 0.50 - 1.30 [facility] Comment on above: Performed By: #### C REAT #### [address] [address] Creatinine [Mass/Vol] 58 mL/min/1.73m2 Abnormal >60 [facility] Comment on above: Performed By: #### C REAT #### [address] [address] Creatinine [Mass/Vol] 70 mL/min/1.73m2 Normal >60 [facility] Comment on above: Result Comment: CALC ULATIONS OF ESTIMATED GFR ARE PERFORMED USING THE MDRD STUDY EQUATION FOR THE IDMS-TRACEABLE CREATININE METHODS. CLIN CHEM 2007;53:766-72 Performed By: #### C REAT #### [address] [place] [address] ELECTROLYTE PANELon 11-14-19 20 Anion gap [Moles/Vol] 11 mmol/L Normal 10 - 20 [facility] Comment on above: Performed By: #### E LECT #### [address] [address] Chloride [Moles/Vol] 104 mmol/L Normal 98 - 107 [facility] Comment on above: Performed By: #### E LECT #### [address] [address] HCO3 (Bld) [Moles/Vol] 29 mmol/L Normal 21 - 32 [facility] Comment on above: Performed By: #### E LECT #### [address] [address] Potassium [Moles/Vol] 4.7 mmol/L Normal 3.5 - 5.3 [facility] Comment on above: Performed By: #### E LECT #### [address] [address] Sodium [Moles/Vol] 139 mmol/L Normal 136 - 145 [facility] Comment on above: Performed By: #### E LECT #### [address] [address] LIPID PANEL (CORONARY RISK 2 )on 11-14-2019 Cholesterol [Mass/Vol] 129 mg/dL Normal 0 - 199 [facility] Comment on above: Result Comment: . AGE [...] dosing. Performed By: #### L IPID #### [address] [address] Cholesterol in HDL [Mass/Vol] 26.0 mg/dL Abnormal [facility] Comment on above: Result Comment: . AGE VERY LOW LOW NORMAL HIGH 0-19 Y < 35 < 40 40-45 ---- 20-24 Y ---- < 40 >45 ---- >24 Y ---- < 40 40-60 >60 . Performed By: #### L IPID #### [address] [address] Cholesterol in LDL [Mass/Vol] 72 mg/dL Normal 0 - 99 [facility] Comment on above: Result Comment: . NEAR BORD AGE DESIRABLE OPTIMAL HIGH HIGH VERY HIGH 0-19 Y 0 - 109 --- 110-129 >/= 130 ---- 20-24 Y 0 - 119 --- 120-159 >/= 160 ---- >24 Y 0 - 99 100-129 130-159 160-189 >/=190 . Performed By: #### L IPID #### [address] [address] Cholesterol in VLDL [Mass/Vol] 31 mg/dL Normal 0 - 40 [facility] Comment on above: Performed By: #### L IPID #### [address] [address] Cholesterol.total/Cho lesterol in HDL [Mass ratio] 5.0 {ratio} Normal [facility] Comment on above: Result Comment: REF VALUES DESIRABLE < 3.4 HIGH RISK > 5.0 Performed By: #### L IPID #### [address] [address] Triglyceride [Mass/Vol] 156 mg/dL High 0 - 149 [facility] Comment on above: Result Comment: . AGE [...] dosing. Performed By: #### L IPID #### [address] [address] UREA NITROGENon 11-14-2019 Urea nitrogen [Mass/Vol] 15 mg/dL Normal [facility] Comment on above: Performed By: #### U BARBARA #### [address] [address] HIP ARTHROGRAM RIGHTon 10-22 HIP ARTHROGRAM RIGHT [facility] Department of Radiology [address] [place] [id number] Patient Name: JANIS GAMING : 1960 Sex: M Age: Race: White Pt. Location: Patient Status: D Ordered Date: 09/23/2019 11:15:00 AM Completed Date: 10/22/2019 11:57 AM Requesting Provider: SABINA MCKEON Attending Provider: SABINA MCKEON Report Copy To: PAUL JARVIS Signs & Symptoms: M25.551 Pain in right hip I10 History: Ethel MR Arthrogram Comments: , , , Ordering [...] bleeding. Electronically signed by:Tomasa Braga. Transcribed by: [email or web address], User Resident: Electronically Signed by: TOMASA BRAGA @ 10/22/2019 12:53 PM Normal [facility] Comment on above: Order Comment: , , = ========= , Ordering Provider - SABINA MCKEON MD , MRI HIP W CONTRAST RIGHTon 1 MRI HIP W CONTRAST RIGHT [facility] Department of Radiology [address] [place] [id number] Patient Name: JANIS GAMING : 1960 Sex: M Age: Race: White Pt. Location: 84 Patient Status: D Ordered Date: 09/23/2019 11:15:00 AM Completed Date: 10/22/2019 12:58 PM Requesting Provider: SABINA MCKEON Attending Provider: SABINA MCKEON Report Copy To: PAUL JARVIS Signs & Symptoms: M25.551 Pain in right hip I10 History: Meka, PHONE:[phone],*N EEDS ORTHO F/U APPT. *[employer] STIMULATOR-CARD SCANNED [...] Ordering Provider - SABINA MCKEON MD , PROTOCOL: Images were obtained in [...] well Electronically signed by:Kiran Quick. Transcribed by: [email or web address], User Resident: Electronically Signed by: KIRAN QUICK @ 10/22/2019 01:40 PM Normal [facility] Comment on above: Order Comment: , , = ========= , Ordering Provider - SABINA MCKEON MD , HIP RIGHT 1 OR 2 VWS WITH PE LVISon 09-23-2019 HIP RIGHT 1 OR 2 VWS WITH PELVIS [facility] Department of Radiology [address] [place] [id number] Patient Name: JANIS GAMING : 1960 Sex: M Age: Race: White Pt. Location: Patient Status: O Ordered Date: 09/23/2019 10:30:00 AM Completed Date: 09/23/2019 10:32 AM Requesting Provider: SABINA MCKEON Attending Provider: SABINA MCKEON Report Copy To: Signs & Symptoms: M25.551 Pain in right hip I10 History: Meka Comments: , , , Ordering Provider - [...] Ordering Provider - SABINA MCKEON MD , PROTOCOL: AP(PA) [...] setting. Electronically signed by:Rosanna Gomez. Transcribed by: [email or web address], User Resident: Electronically Signed by: ROSANNA GOMEZ @ 09/23/2019 10:52 AM Normal [facility] Comment on above: Order Comment: , , = ========= , Ordering Provider - SABINA MCKEON MD , ALT (SGPT)on 11-01-2018 ALT enzyme act/vol 29 U/L Normal 10-52 [facility] Comment on above: Performed By: #### 1 [id number] #### [facility] [address] [place] [address] AST (SGOT)on 11-01-2018 AST enzyme act/vol 19 U/L Normal 13-39 [facility] Comment on above: Performed By: #### 1 [id number] #### [facility] [address] [place] [address] Creatinineon 11-01-2018 Creatinine mass conc 1.20 mg/dL Normal 0.50-1.30 [facility] Comment on above: Performed By: #### 1 [id number] #### [facility] [address] [place] [address] GFR/1.73 sq M.predicted MDRD vol rate/area mL/min/{1.73_m2} Normal [facility] Comment on above: Result Comment: Inte rpretation for Chronic Kidney Disease: Stages 1&2 >60 Healthy or potential kidney damage. Mild decrease of GFR. Stage 3 30-59 Moderate decrease of GFR. Stage 4 15-29 Severe decrease of GFR. Stage 5 <15 Kidney failure or on dialysis. Performed By: #### 1 [id number] #### [facility] [address] [place] [address] Electrolyte Panelon 11-01-19 19 Anion gap molar conc 8 mmol/L Low - [facility] Comment on above: Performed By: #### 1 [id number] #### [facility] [address] [place] [address] Chloride molar conc 104 mmol/L Normal 98-107 [facility] Comment on above: Performed By: #### 1 [id number] #### [facility] [address] [place] [address] HCO3 molar conc (Bld) 29 mmol/L Normal 21-32 [facility] Comment on above: Performed By: #### 1 [id number] #### [facility] [address] [place] [address] Potassium molar conc 4.5 mmol/L Normal 3.5-5.1 [facility] Comment on above: Performed By: #### 1 [id number] #### [facility] [address] [place] [address] Sodium molar conc 137 mmol/L Normal 136-145 [facility] Comment on above: Performed By: #### 1 [id number] #### [facility] [address] [place] [address] Lipid Panelon 11-01-2018 Cholesterol in HDL mass conc 25 mg/dL Abnormal [facility] Comment on above: Result Comment: Norm al Mod Risk High Risk 5-9 >48 42-48 <42 10-14 >45 40-45 <40 15-19 >38 34-38 <34 Adult >39 Performed By: #### 1 [id number] #### [facility] [address] [place] [address] Cholesterol in LDL mass conc 55 mg/dL Normal <130 [facility] [facility] Comment on above: Performed By: #### [id number] #### [facility] [address] [place] [address] Cholesterol in VLDL mass conc 29 mg/dL Normal <30 [facility] Healthcare Comment on above: Performed By: #### [id number] #### [facility] [address] [place] [address] Cholesterol mass conc 109 mg/dL Normal <200 [facility] Healthcare Comment on above: Performed By: #### [id number] #### [facility] [address] [place] [address] Cholesterol.total/Cho lesterol in HDL mass ratio 4.4 {ratio} Normal [facility] Healthcare Comment on above: Performed By: #### [id number] #### [facility] [address] [place] [address] Triglyceride mass conc 146 mg/dL Normal <150 [facility] Healthcare Comment on above: Result Comment: 150- 199 Borderline High 200-499 High >500 Very High Performed By: #### [id number] #### [facility] [address] [place] [address] Urea Nitrogenon 11-01-2018 Urea nitrogen mass conc 12 mg/dL Normal 6-23 [facility] Healthcare Comment on above: Performed By: #### [id number] #### [facility] [address] [place] [address] Vital Signs Date Time Vital Sign Value Performing Clinician Facility 11-12-2024 13:050 Body height 177.8 cm Flavia CHIN Work Phone: [facility] 11-12-2024 13:31-0500 Body mass index (BMI) [Ratio] 34.58 kg/m2 Flavia CHIN Work Phone: [facility] 11-12-2024 13:31-0500 Body weight 109.32 kg Flavia Lowe PA Work Phone: [facility] 11-12-2024 13:31-0500 Diastolic blood pressure 88 mm[Hg] Flavia Lowe PA Work Phone: [facility] 11-12-2024 13:31-0500 Heart rate 65 /min Flavia Lowe PA Work Phone: [facility] 11-12-2024 13:31-0500 Respiratory rate 16 /min Flavia Lowe PA Work Phone: [facility] 11-12-2024 13:31-0500 SaO2% (BldA) [Mass fraction] 94 % Flavia Lowe PA Work Phone: [facility] 11-12-2024 13:31-0500 Systolic blood pressure 140 mm[Hg] Flavia Lowe PA Work Phone: [facility] 10-31-2024 15:02-0500 Body height 180.3 cm Reynold Flores SCIENTOLOGIST Work Phone: [facility] 10-31-2024 15:02-0500 Body mass index (BMI) [Ratio] 33.75 kg/m2 Reynold Flores SCIENTOLOGIST Work Phone: [facility] 10-31-2024 15:02-0500 Body temperature 97.11 [degF] Reynold Flores SCIENTOLOGIST Work Phone: [facility] 10-31-2024 15:02-0500 Body weight 109.77 kg Reynold Flores SCIENTOLOGIST Work Phone: [facility] 10-31-2024 15:02-0500 Diastolic blood pressure 66 mm[Hg] Reynold Flores SCIENTOLOGIST Work Phone: [facility] 10-31-2024 15:02-0500 Heart rate 72 /min Reynold Flores SCIENTOLOGIST Work Phone: [facility] 01-09-2025 15:02-0500 Respiratory rate 18 /min Reynold Viramontesk SCIENTOLOGIST Work Phone: [facility] 10-31-2024 15:02-0500 SaO2% (BldA) [Mass fraction] 97 % Reynold Mcfarlanetrick SCIENTOLOGIST Work Phone: [facility] 10-31-2024 15:02-0500 Systolic blood pressure 132 mm[Hg] Reynold Mcfarlanetrick SCIENTOLOGIST Work Phone: [facility] 09-10-2024 10:58-0500 Body height 180.3 cm Abdi Ortiz MD Work Phone: [facility] 09-10-2024 10:58-0500 Body mass index (BMI) [Ratio] 34.73 kg/m2 Abdi Ortiz MD Work Phone: [facility] 09-10-2024 10:58-0500 Body weight 112.95 kg Abdi Ortiz MD Work Phone: [facility] 09-10-2024 10:58-0500 Diastolic blood pressure 64 mm[Hg] Abdi Ortiz MD Work Phone: [facility] 09-10-2024 10:58-0500 Heart rate 69 /min Abdi Ortiz MD Work Phone: [facility] 09-10-2024 10:58-0500 Respiratory rate 16 /min Abdi Ortiz MD Work Phone: [facility] 09-10-2024 10:58-0500 Systolic blood pressure 104 mm[Hg] Abdi Ortiz MD Work Phone: [facility] 08-20-2024 12:49-0400 Body height 180.3 cm Flavia Frausto PA Work Phone: [facility] 08-20-2024 12:49-0400 Body mass index (BMI) [Ratio] 33.61 kg/m2 Flavia Frausto PA Work Phone: [facility] 08-20-2024 12:49-0400 Body weight 109.32 kg Flavia Lowe PA Work Phone: [facility] 08-20-2024 12:49-0400 Diastolic blood pressure 82 mm[Hg] Flavia Lowe PA Work Phone: [facility] 08-20-2024 12:49-0400 Systolic blood pressure 124 mm[Hg] Flavia Lowe PA Work Phone: [facility] 02-07-2024 10:00-0400 Body height 180.3 cm Chang Barba DO Work Phone: [facility] 02-07-2024 10:00-0400 Body mass index (BMI) [Ratio] 32.36 kg/m2 Chang Barba DO Work Phone: [facility] 02-07-2024 10:00-0400 Body weight 105.23 kg Chang Barba DO Work Phone: [facility] 02-07-2024 10:00-0400 Diastolic blood pressure 68 mm[Hg] Chang Barba DO Work Phone: [facility] 02-07-2024 10:00-0400 Heart rate 60 /min Chang Barba DO Work Phone: [facility] 02-07-2024 10:00-0400 Systolic blood pressure 110 mm[Hg] Chang Barba DO Work Phone: [facility] 08-07-2023 12:00-0400 Body height 177.8 cm Dary Cuevas Other [employer] Other 08-07-2023 12:00-0400 Body mass index (BMI) [Ratio] 33.97 kg/m2 Dary Cuevas Other [employer] Other 08-07-2023 12:00-0400 Body temperature 97.1 [degF] Dary Cuevas Other [employer] Other 08-07-2023 12:00-0400 Body weight 107.41 kg Dary Cuevas Other [employer] Other 08-07-2023 12:00-0400 Diastolic blood pressure 73 mm[Hg] Dary Cuevas Other [employer] Other 08-07-2023 12:00-0400 Respiratory rate 18 /min Dary Cuevas Other [employer] Other 08-07-2023 12:00-0400 SaO2% (BldA) [Mass fraction] 96 % Dary Cuevas Other [employer] Other 08-07-2023 12:00-0400 Systolic blood pressure 107 mm[Hg] Dary Cuevas Other [employer] Other 02-14-2023 10:09-0400 Body height 177.8 cm [employer] Work Phone: [employer] [employer] 250 DO Work Phone: 02-14-2023 10:09-0400 Body mass index (BMI) [Ratio] 35.15 kg/m2 [employer] Work Phone: [employer] [employer] 250 DO Work Phone: 02-14-2023 10:09-0400 Body surface area Derived from formula 2.28 m2 [employer] Work Phone: [employer] [employer] 250 DO Work Phone: 02-14-2023 10:09-0400 Body weight 111.13 kg Paul [employer] Work Phone: [employer] [place] [employer] 250 DO Work Phone: 02-14-2023 10:09-0400 Diastolic blood pressure 74 mm[Hg] Paul P House Work Phone: [facility] 250 DO Work Phone: 02-14-2023 10:09-0400 Heart rate 66 /min Paul P House Work Phone: [facility] 250 DO Work Phone: 02-14-2023 10:09-0400 Systolic blood pressure 110 mm[Hg] Paul P House Work Phone: [facility] 250 DO Work Phone: 09-22-2022 15:14-0500 Body height 177.8 cm Katty Jean Baptiste MD Work Phone: [facility] 09-22-2022 15:14-0500 Body weight 110.59 kg Katty Jean Baptiste MD Work Phone: [facility] 11-17-2021 11:54-0500 Diastolic blood pressure 74 mm[Hg] Paul P House Work Phone: [facility] 250 DO Work Phone: 11-17-2021 11:54-0500 Systolic blood pressure 138 mm[Hg] Paul P House Work Phone: [facility] 250 DO Work Phone: 11-17-2021 11:49-0500 Body height 177.8 cm Paul P House Work Phone: [facility] 250 DO Work Phone: 11-17-2021 11:49-0500 Body mass index (BMI) [Ratio] 36.02 kg/m2 Paul P House Work Phone: [facility] 250 DO Work Phone: 11-17-2021 11:49-0500 Body surface area Derived from formula 2.3 m2 Paul P House Work Phone: [facility] 250 DO Work Phone: 11-17-2021 11:49-0500 Body weight 113.85 kg Paul P House Work Phone: [facility] 250 DO Work Phone: 11-17-2021 11:49-0500 Diastolic blood pressure 90 mm[Hg] Paul P House Work Phone: [facility] 250 DO Work Phone: 11-17-2021 11:49-0500 Heart rate 82 /min Paul P House Work Phone: [facility] 250 DO Work Phone: 11-17-2021 11:49-0500 Systolic blood pressure 144 mm[Hg] Paul P House Work Phone: [facility] 250 DO Work Phone: Encounters Encounter Date Encounter Type Care Provider Facility Start: 11-13-2024 End: 11-19-2024 Telephone encounter Flavia Lowee PA Work Phone: [facility] Start: 11-12-2024 End: 11-12-2024 Bamboo flowsheet Flavia Lowe PA Work Phone: [facility] Start: 11-12-2024 End: 11-12-2024 Bamboo flowsheet Flavia Lowe PA Work Phone: [facility] Start: 11-12-2024 End: 11-12-2024 Office outpatient visit 25 minutes Flavia Lowe PA Work Phone: [facility] Comment on above: Essential tremor (Pr imary Dx); Dizziness Start: 11-12-2024 End: 11-12-2024 ambulatory FLAVIA LOWE Not Available Start: 11-11-2024 End: 11-11-2024 ambulatory Elijah Amado MD Facility: [place] Start: 10-31-2024 End: 10-31-2024 Office outpatient visit 15 minutes Reynold Flores SCIENTOLOGIST Work Phone: [facility] Comment on above: Vertigo (Primary Dx) ; Degeneration of thoracic intervertebral disc; Thoracic spondylosis without myelopathy; Lumbosacral spondylosis without myelopathy Start: 10-31-2024 End: 10-31-2024 ambulatory REYNOLD MCFARLANETRICK Not Available Start: 10-31-2024 End: 10-31-2024 Bamboo flowsheet Reynold Mcfarlanetrick SCIENTOLOGIST Work Phone: [facility] Start: 10-31-2024 End: 10-31-2024 Bamboo flowsheet Reynold Atkinsonpatrick SCIENTOLOGIST Work Phone: [facility] Start: 10-31-2024 End: 10-31-2024 Telephone encounter Flavia CHIN Work Phone: [facility] Start: 09-18-2024 End: 09-18-2024 Telephone encounter Abdi Ortiz MD Work Phone: [facility] Start: 09-10-2024 End: 09-10-2024 Bamboo flowsheet Abdi Ortiz MD Work Phone: [facility] Start: 09-10-2024 End: 09-10-2024 Bamboo flowsheet Abdi Ortiz MD Work Phone: [facility] Start: 09-10-2024 End: 09-10-2024 Office outpatient visit 40 minutes Abdi Ortiz MD Work Phone: [facility] Comment on above: Type 2 diabetes dipika itus with hyperglycemia, with long-term current use of insulin (CMS/HCC) (Primary Dx); Presence of insulin pump (external) (internal); Encounter for fitting and adjustment of insulin pump; prison (current) use of insulin (CMS/HCC); Vitamin D deficiency, unspecified; Mixed hyperlipidemia (CMS/HCC); Class 1 obesity due to excess calories with serious comorbidity and body mass index (BMI) of 34.0 to 34.9 in adult; Hypoglycemia Start: 09-10-2024 End: 09-10-2024 ambulatory ABDI ORTIZ Not Available Start: 08-20-2024 End: 08-20-2024 Office outpatient visit 15 minutes Flavia CHIN Work Phone: [facility] Comment on above: Essential tremor Start: 08-20-2024 End: 08-20-2024 ambulatory FLAVIA LOWEAaron Not Available Start: 05-29-2024 End: 05-29-2024 ambulatory FLAVIA LOWE Not Available Start: 05-27-2024 End: 05-27-2024 ambulatory REYNOLD FLORES Not Available Start: 04-04-2024 End: 04-04-2024 ambulatory EDDIE BRAXTON Not Available Start: 04-02-2024 End: 04-02-2024 ambulatory BEN OSCAR Not Available Start: 03-04-2024 Patient encounter procedure Flavia CHIN Work Phone: [facility] Start: 03-04-2024 End: 03-04-2024 ambulatory SHAIKH HOLA Not Available Start: 02-07-2024 End: 02-07-2024 ambulatory [facility] Start: 02-07-2024 End: 02-07-2024 Office outpatient visit 15 minutes Chang Barba DO Work Phone: [facility] Comment on above: Two-vessel coronary artery disease; Ischemic cardiomyopathy; History of WI (myocardial infarction); History of PTCA; Mixed hyperlipidemia; Essential hypertension; Type 2 diabetes mellitus without complication, with long-term current use of insulin (Multi); BMI 32.0-32.9,adult Start: 01-03-2024 End: 01-03-2024 ambulatory SHAIKH HOLA Not Available Start: 08-07-2023 End: 08-07-2023 ambulatory Dary Cuevas Other [employer] Other Start: 08-07-2023 Office outpatient vi sit 15 minutes Dary Cuevas [facility] Start: 02-14-2023 ambulatory [facility] Facilit y: Start: 02-14-2023 Office outpatient vi sit 15 minutes Paul P House Work Phone: [facility] 250 DO Work Phone: Start: 12-31-2022 End: 12-31-2022 ambulatory HOLLOWAY Clara FABenjiWAD Facility: Start: 11-29-2022 Telephone encounter Paul Carey House Work Phone: [facility] 250 DO Work Phone: Start: 11-08-2022 Rx Renewal Paul P Hous e Work Phone: [facility] 250 DO Work Phone: Start: 09-28-2022 End: 09-29-2022 ambulatory HOLLOWAY Clara HOLA Facility: Start: 09-22-2022 End: 09-22-2022 ambulatory KATTY JEAN BAPTISTE Facility:[facility] Start: 09-22-2022 End: 09-22-2022 Patient encounter procedure Katty Jean Baptiste MD Work Phone: [facility] Comment on above: Thoracic radiculitis (Primary Dx); Degeneration of thoracic intervertebral disc; Costochondral pain; Diabetes 1.5, managed as type 1 (HCC) Start: 08-25-2022 End: 08-25-2022 ambulatory KATTY JEAN BAPTISTE Facility:[facility] Start: 08-24-2022 End: 08-24-2022 ambulatory SHAIKH Clara SIMENTAL Facility:[facility] Start: 08-01-2022 Rx Renewal Paul P Hous e Work Phone: [facility] 250 DO Work Phone: Start: 06-22-2022 Telephone encounter Katty Jean Baptiste MD Work Phone: Pain Management Comment on above: Appointment (Pain ma nagement) Start: 04-28-2022 End: 04-28-2022 ambulatory HOLLOWAY H MAINORWWAD Facility:[facility] Start: 04-27-2022 End: 04-27-2022 ambulatory HOLLOWAY H FAWWAD Facility:[facility] Start: 03-29-2022 End: 03-30-2022 ambulatory SHAIKH Clara SIMENTAL Facility:[facility] Start: 03-19-2022 End: 03-19-2022 ambulatory SHAIKH Clara SIMENTAL Facility:[facility] Start: 02-02-2022 End: 02-02-2022 ambulatory SHAIKH Clara SIMENTAL Facility:[facility] Start: 01-14-2022 End: 01-15-2022 ambulatory SHAIKH Clara LEDBETTERUTKayla Facility:[facility] Start: 11-17-2021 FUV, Provider: Chang Barba, Status: Pen, Time: 11:00 AM Paul P House Work Phone: [facility] 250 DO Work Phone: Start: 11-17-2021 Office outpatient vi sit 15 minutes Paul P [employer] Work Phone: [facility] 250 DO Work Phone: Start: 11-15-2021 Rx Renewal Paul P Hous e Work Phone: [facility] 250 DO Work Phone: Start: 08-10-2021 Rx Renewal Paul P Hous e Work Phone: [facility] [address] [place] Work Phone: Start: 08-09-2021 Rx Renewal Paul P Hous e Work Phone: [facility] 250 DO Work Phone: Start: 11-01-2018 Patient [...] Start: 11-19-2020 Lipid 1996 panel - S tyelr or Plasma Chang Barba DO Work Phone: Appendectomy Paul Jarvis Work Phone: History of percutane ous transluminal coronary angioplasty History of PTCA Paul Jarvis Work Phone: History of percutane ous transluminal coronary angioplasty History of PTCA Chang Barba DO Work Phone: Procedure on back Paul Jarvis Work Phone: Surgical procedure Paul Jarvis Work Phone: Comment on above: Stent Indications; NEGATED: Highlighted row has not occurred! Total colonoscopy Paul Jarvis Work Phone: Plan of Treatment Date Care Activity Detail Author Start: 01-02-2026 Glaucoma screening Diabetes: R etinopathy Screening [facility] Start: 03-04-2025 Medicare Annual Wellness (AWV) Medicare Annual Wellness (AWV) [facility] Start: 02-06-2025 End: 02-06-2025 Patient encounter procedure 02/06/2025 9:30 AM EDT Office Visit [facility] [address] [place] [address] Chang Barba DO [address] [place] [address] [facility] Start: 01-30-2025 End: 01-30-2025 Patient encounter procedure 01/30/2025 11:00 AM EDT Office Visit [facility] [address] [place] [address] Reynold Flores NP [address] [place] [address] [facility] Start: 01-06-2025 End: 01-06-2025 Patient encounter procedure 01/06/2025 1:20 PM EDT Office Visit [facility] [address] [address] Flavia Frausto PA [address] [place] [address] [facility] Start: 12-21-2024 Screening for malign ant neoplasm of colon [facility] Start: 12-11-2024 Hemoglobin A1c measurement Diabetes: Hemoglobin A1C [facility] Start: 12-10-2024 End: 12-10-2024 Patient encounter procedure 12/10/2024 10:50 AM EST Office Visit [facility] [address] [place] [address] Abdi Ortiz MD [address] [place] [address] [facility] Start: 12-09-2024 End: 02-06-2025 Lipid 1996 panel - Serum or Plasma Lipid Panel Lab Routine Two-vessel coronary artery disease Mixed hyperlipidemia Expected: 12/09/2024 (Approximate), Expires: 02/06/2025 [facility] Service Area Work Phone: Comment on above: Expected: 12/09/2024 (Approximate), Expires: 02/06/2025 Start: 11-12-2024 End: 11-12-2024 [facility] Comment on above: Arrived Start: 10-31-2024 End: 10-31-2024 Patient encounter procedure 10/31/2024 3:00 PM EST Office Visit [facility] [address] [place] [id number] Reynold Flores NP [address] [place] [address] Arrived [facility] Comment on above: Arrived Start: 09-11-2024 End: 09-11-2024 Patient encounter procedure 09/11/2024 10:00 AM EST Office Visit [facility] [address] [place] [address] Reynold Flores, NOÉ [address] [place] [address] [facility] Start: 09-10-2024 End: 09-10-2024 Patient encounter procedure [facility] Comment on above: Type 2 diabetes dipika itus with hyperglycemia, with long-term current use of insulin ([facility]) Start: 06-23-2024 Influenza vaccination [facility] Start: 02-07-2024 FUV, Provider: Chang Barba, Status: Pen, Time: 9:50 AM FUV, Provider: Chang Barba, Status: Pen, Time: 9:50 AM [facility] [employer] 250 DO Work Phone: Start: 06-23-2023 COVID-19 Vaccine ( season) COVID-19 Vaccine ( season) [facility] Start: 02-14-2023 FUV, Provider: Chang Barba, Status: Pen, Time: 10:00 AM FUV, Provider: Chang Barba, Status: Pen, Time: 10:00 AM [facility] [employer] 250 DO Work Phone: Start: 11-16-2022 FUV, Provider: Chang Barba, Status: Pen, Time: 11:00 AM FUV, Provider: Chang Barba, Status: Pen, Time: 11:00 AM [facility] [employer] 250 DO Work Phone: Start: 06-23-2022 Influenza vaccination INFLUENZA (#1) [facility] Start: 11-26-2021 COVID-19 VACCINE (4 - Booster for Pfizer series) COVID-19 VACCINE (4 - Booster for Pfizer series) [facility] Start: 11-19-2021 Lipid panel Lipid Panel [facility] Start: 11-17-2021 FUV, Provider: Chang Barba, Status: Pen, Time: 11:00 AM FUV, Provider: Chang Barba, Status: Pen, Time: 11:00 AM [facility] Work Phone: Start: 10-23-2021 DEPRESSION ASSESSMENT DEPRESSION ASS ESSMENT [facility] Start: 09-20-2021 COVID-19 VACCINE (4 - Booster for Pfizer series) COVID-19 VACCINE (4 - Booster for Pfizer series) [facility] Start: 07-26-2017 Pneumococcal Vaccine : 65+ Years (2 of 2 - PCV) Pneumococcal Vaccine: 65+ Years (2 of 2 - PCV) [facility] Start: 07-26-2017 Pneumococcal Vaccine : Pediatrics (0 to 5 Years) and At-Risk Patients (6 to 64 Years) (2 of 2 - PCV) Pneumococcal Vaccine: Pediatrics (0 to 5 Years) and At-Risk Patients (6 to 64 Years) (2 of 2 - PCV) [facility] Start: 2014 PROSTATE CANCER SCREENING DISCUSSION PROSTATE CANCER SCREENING DISCUSSION [facility] Start: 2009 SHINGRIX VACCINE (1 of 2) SHINGRIX VACCINE (1 of 2) [facility] Start: 2009 Zoster Vaccines (1 o f 2) Zoster Vaccines (1 of 2) [facility] Start: 2004 COLOGUARD (FIT-DNA) COLOGUARD (FIT-D NA) [facility] Start: 2004 Colonoscopy COLONOSCOPY [facility] Start: 2004 COLORECTAL CANCER SCREENING COLORECTAL CANCER SCREENING [facility] Start: [address] COLONOGRAPHY [facility] Start: 2004 DIABETES SCREEN DIABETES SCREEN [facility] Start: 2004 FECAL OCCULT BLOOD FECAL OCCULT BLOO D [facility] Start: 2004 SIGMOIDOSCOPY SIGMOIDOSCOPY [facility] Start: 1994 LIPID SCREEN LIPID SCREEN [facility] Start: 1981 DTaP/Tdap/Td Vaccine s (1 - Tdap) DTaP/Tdap/Td Vaccines (1 - Tdap) [facility] Start: 1978 Urine microalbumin profile DTAP,TDAP,TD (1 - Tdap) [facility] Start: 1978 Urine screening for protein Diabetes: Urine Protein Screening [facility] Start: 1977 ANNUAL PCP TEAM AGILE TESTER [place] DISEASE VISIT ANNUAL PCP TEAM CHRONIC DISEASE VISIT [facility] Start: 1977 Hepatitis B surface antibody level LDL CHOLESTEROL [facility] Start: 1977 HEPATITIS C SCREENING HEPATITIS C [facility] Start: 1977 Hepatitis C screening Hepatitis C [facility] Start: 1977 HIV SCREENING HIV SCREENING [facility] Start: 1971 Adult depression screening assessment DEPRESSION SCREENING [facility] Start: 1969 3 comp foot exam completed DIABETIC FOOT EXAM [facility] Start: 1969 Diabetic foot examination Diabetes: Foot Exam [facility] Start: 1969 Glaucoma screening Diabetes: R etinopathy Screening [facility] Start: 1969 Hepatitis B screening URINE ALBUMIN:CREATININE RATIO [facility] Start: 1969 Hepatitis C antibody , confirmatory test DILATED RETINAL EXAM [facility] Start: 1965 PNEUMOCOCCAL (1 - PCV) PNEUMOCOCCAL (1 - PCV) [facility] Start: 1964 Hemoglobin A1c/Hemoglobin.total in Blood HBA1C [facility] Start: 1960 MMR Vaccines (1 of 1 - Standard series) MMR Vaccines (1 of 1 - Standard series) [facility] Start: 1959 Hemoglobin A1c measurement Diabetes: Hemoglobin A1C [facility] Start: 1959 HIV screening HIV Screening [facility] Start: 1959 Medicare Annual Wellness Visit Medicare Annual Wellness Visit (AWV) [facility] Start: 1959 Screening for malign ant neoplasm of colon [facility] Immunizations Immunization Date Immunization Notes Care Provider Mainor becerra 07-26-2021 Pfizer-BioNTech COVI D-19 Vacc 30 MCG/0.3ML Intramuscular Suspension Paul [employer] Work Phone: [facility] [employer] 250 DO Work Phone: 01-21-2021 Pfizer-BioNTech COVI D-19 Vacc 30 MCG/0.3ML Intramuscular Suspension Paul P Ada Work Phone: [facility] [employer] 250 DO Work Phone: 12-31-2020 Pfizer-BioNTech COVI D-19 Vacc 30 MCG/0.3ML Intramuscular Suspension Paul P Ada Work Phone: [facility] 250 DO Work Phone: 08-23-2019 influenza virus vacc ine, unspecified formulation Paul P Ada Work Phone: [facility] 250 DO Work Phone: 07-26-2016 influenza virus vacc ine, unspecified formulation Paul P Ada Work Phone: [facility] 250 DO Work Phone: 07-26-2016 pneumococcal polysaccharide vaccine, 23 valent Paul P Ada Work Phone: [facility] 250 DO Work Phone: 08-23-2015 influenza virus vacc ine, unspecified formulation Paul [facility] Work Phone: [facility] 250 DO Work Phone: 06-08-2015 influenza, injectabl e, quadrivalent, preservative free Paul [facility] Work Phone: [facility] 250 DO Work Phone: 06-08-2015 influenza virus vacc ine, unspecified formulation Flavia CHIN Work Phone: [facility] 08-28-2014 influenza virus vacc ine, unspecified formulation Paul [facility] Work Phone: [facility] 250 DO Work Phone: 10-23-2007 pneumococcal polysaccharide vaccine, 23 valent Paul P Ada Work Phone: [facility] 250 DO Work Phone: Payers Date Payer Category Payer Medicare [id number] 2021 Medicare (Managed Care) FORMERLY [facility] [id number]. [id number] 2021 Unknown 2021 Unknown [id number] 1959 Unknown [id number] 2.16.840.1.083045.3.579. 2.355 1959 Unknown [id number] 2.16.840.1.996574.3.579. 2.593 1959 Unknown [id number] 2.16.840.1.438186.3.579. 2.593 1959 Unknown [id number] 2.16.840.1.997062.3.579. 2.593 1959 Unknown [id number] 2.16.840.1.427411.3.579. 2.593 1959 Unknown [id number] 2.16.840.1.891818.3.579. 2.593 1959 Unknown [id number] 2.16.840.1.129375.3.579. 2.593 1959 Unknown [id number] 2.16.840.1.820760.3.579. 2.593 1959 Unknown [id number] 2.16.840.1.852856.3.579. 2.593 1959 Unknown [id number] 2.16.840.1.558541.3.579. 2.593 1959 Unknown [id number] 2.16.840.1.455501.3.579. 2.593 1959 Unknown [id number] 2.16.840.1.283637.3.579. 2.356 1959 Unknown [id number] 2.16.840.1.102406.3.579. 2.1244 1959 Unknown [id number] 2.16.840.1.493495.3.579. 2.1259 1959 Unknown [id number] 2.16.840.1.629103.3.579. 2.9 1959 Unknown [id number] 2.16.840.1.885732.3.579. 2.1259 1959 Unknown [id number] 2.16.840.1.895768.3.579. 2.9 1959 Unknown [id number] 2.16.840.1.403304.3.579. 2.9 1959 Unknown [id number] 2.16.840.1.783249.3.579. 2.9 1959 Unknown [id number] 2.16.840.1.139614.3.579. 2.1259 1959 Unknown [id number] 2.16.840.1.160376.3.579. 2.9 1959 Unknown [id number] 2.16.840.1.084272.3.579. 2.9 1959 Unknown [id number] 2.16.840.1.062491.3.579. 2.9 1959 Unknown [id number] 2.16.840.1.599534.3.579. 2.196 Medicare [id number] Social History Date Type Detail Facility Start: 08-03-2023 End: 05-27-2024 No illicit drug use No illicit drug use [place] [id number] DO Work Phone: Comment on above: very little.; decafe ice tea 1 24o z daily. Diet pop 1 can once a weekly.; Tobacco smoking status ALIS Tobacco smoking consumption unknown [facility] Start: 1960 Sex Assigned At Not on file [facility] Start: 05-14-2022 End: 02-07-2024 Exposure to SARS-CoV-2 (event) Not sure [facility] Start: 09-22-2022 End: 01-03-2024 Tobacco smoking status NHIS Never smoked tobacco [facility] Start: 09-22-2022 End: 01-03-2024 Tobacco use and exposure Smokeless tobacco non-user [facility] Start: 09-22-2022 End: 11-12-2024 Alcohol intake Lifetime non-drinker (finding) [facility] Start: 08-03-2023 End: 05-27-2024 Sex Assigned At [employer] Other Start: 02-07-2024 Alcoholic beverage intake Current drinker of alcohol (finding) [facility] Work Phone: Start: 08-03-2023 Alcohol Comment very little [facility] Work Phone: NEGATED: Highlighted rowStart: NANCY History of tobacco use Passive smoker [facility] Clinical Notes 01-14-2022 to 11-13-2024 Telephone Encounter - Samaria Hernandez - 11/13/2024 3:24 PM ESTTelephone Encounter - Samaria Hernandez - 11/13/2024 3:24 PM GIUSEPPE [place] - 11/12/2024 1:20 PM ESTPatient Instructions Note Date & Type Note Facility 11-13-2024 Telephone encounter Note Patient brought in the DVD with all of his scans from the [facility]. This was placed at your seat. [facility] 11-13-2024 Miscellaneous Notes Patient brought in the DVD with all of his scans from the [facility]. This was placed at your seat. documented in this encounter [facility] 11-12-2024 History of Present illness Narrative Images from the original note were not included. Subjective Janis Gaming is a 63 y.o. 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) Mixed hyperlipidemia (CMS/HCC) Presence of insulin pump (external) (internal) Type II diabetes mellitus (CMS/HCC) Vitamin D deficiency, unspecified Past Surgical History: Procedure Laterality Date APPENDECTOMY BACK SURGERY CARPAL TUNNEL RELEASE LUMBAR FUSION 1991 OTHER SURGICAL HISTORY 2013 pain stimulator implant Family History Problem Relation Name Age of Onset Hypertension Mother Stroke Mother Diabetes Father Heart disease Father Heart disease Brother Diabetes Brother Hypertension Brother Social History Tobacco Use Smoking status: Never Passive exposure: Never Smokeless tobacco: Never Substance Use Topics Alcohol use: Never Medication Documentation Review Audit Reviewed by Reynold Flores NP (Nurse Practitioner) on 10/31/24 at 1517 Medication Order Taking? Sig Documenting Provider Last Dose Status ASPIR 81 MG EC tablet [id number] Yes Take 81 mg by mouth Daily Shaikh Hola MD Active atorvastatin (Lipitor) 40 MG tablet [id number] Yes Take 40 mg by mouth at bedtime Shaikh Hola MD Active baclofen (Lioresal) 10 MG tablet [id number] Yes Take 10 mg by mouth in the morning and 10 mg in the evening and 10 mg before bedtime. Shaikh Hola MD Active Fiasp 100 UNIT/ML solution [id number] Yes INJECT SUBCUTANEOUSLY DIRECTED WITH insulin pump (max DAILY UNITS 100 UNITS) Historical Provider, Active glimepiride (Amaryl) 4 MG tablet [id number] TAKE 1 TABLET BY MOUTH TWICE DAILY Patient not taking: Reported on 10/31/2024 Abdi Ortiz MD Active glucagon (Gvoke HypoPen 2-Pack) 0.5 MG/0.1ML injection [id number] Yes Inject 0.1 mL (0.5 mg) under the skin 1 (one) time if needed for low blood sugar Abdi Ortiz MD Active Insulin Disposable Pump (Omnipod DASH Pods, Gen 4,) [facility] [place] [id number] USE DIRECTED * change pod EVERY 72 HOURS * Abdi Ortiz MD Active liraglutide (Victoza) 18 MG/3ML injection [id number] Inject under the skin Daily Patient not taking: Reported on 10/31/2024 Abdi Ortiz MD Active nitroglycerin (Nitrostat) 0.4 MG SL tablet [id number] Yes DISSOLVE 1 TABLET UNDER THE TONGUE NEEDED FOR CHEST PAIN- MAY REPEAT EVERY 5 MINUTES IF NEEDED ( MAX 3 DOSES.- IF NO RELIEF CALL 911) GIUSEPPE Luis Active NovoLOG 100 UNIT/ML solution [id number] Inject 100 Units under the skin Daily Insulin Pump Patient not taking: Reported on 10/31/2024 Shaikh Hola MD Active Ozempic, 0.25 or 0.5 MG/DOSE, 2 MG/3ML solution pen-injector [id number] Yes INJECT 0.5mg SUBCUTANEOUSLY weekly Abdi Ortiz MD Active pregabalin (Lyrica) 75 MG capsule [id number] Take 75 mg by mouth in the morning and 75 mg before bedtime. Patient not taking: Reported on 10/31/2024 Abdi Ortiz MD Active propranolol (Inderal) 20 MG tablet [id number] Yes Take 1 tablet (20 mg) by mouth in the morning and 1 tablet (20 mg) before bedtime. GIUSEPPE Parks Active spironolactone (Aldactone) 25 MG tablet [id number] Yes Take 25 mg by mouth Daily Shaikh Hola MD Active HPI Tremors -on Propranolol -tremors have been pretty good -located mostly in the right arm -notices with activity -right arm has started to feel weak, in the elbow area -described it as just feeling like it's hanging there -denies any cotton washer trouble New: DIZZINESS -on meclizine, TID -he had episode when in [facility] -he was diagnosed with vertigo and given meclizine -he is unsure of which hospital he went to -he was told CT looked okay -he called into this office after this event -reports steroid has helped his episode -continues to have a little dizziness -comes and goes -described as feeling lightheaded -occasionally feels like the whole room is spinning -notices mostly with positional changes ROS Review of Systems Constitutional: Positive for fatigue. Negative for activity change and appetite change. HENT: Negative for trouble swallowing and voice change. Eyes: Negative for photophobia and visual disturbance. Respiratory: Negative for apnea and shortness of breath. Cardiovascular: Negative for chest pain and palpitations. Gastrointestinal: Negative for nausea and vomiting. Musculoskeletal: Negative for arthralgias, gait problem and neck pain. Skin: Negative for color change and pallor. Neurological: Positive for tremors and light-headedness. Negative for dizziness and numbness. Psychiatric/Behavioral: Negative for agitation, confusion and hallucinations. Objective Visit Vitals BP 140/88 Pulse 65 Resp 16 Ht 5' 10 Wt 241 lb SpO2 94% BMI 34.58 kg/m Smoking Status Never BSA 2.32 m Heart-RRR Neurological Exam Mental Status Awake, alert and oriented to person, place and time. Speech is normal. Language is fluent with no aphasia. Attention and concentration are normal. Cranial Nerves CN III, IV, : Nystagmus present: L>R. Normal lids and orbits bilaterally. Pupils equal round and reactive to light bilaterally. CN V: Facial sensation is normal. CN VII: Full and symmetric facial movement. CN VIII: Hearing is normal. CN IX, X: Palate elevates symmetrically. Normal gag reflex. CN XI: Shoulder shrug strength is normal. CN XII: Tongue midline without atrophy or fasciculations. Sensory Sensation is intact to light touch, pinprick, vibration and proprioception in all four extremities. Coordination [id number]-[id number], rapid alternating movements and [id number]-[id number] normal bilaterally without dysmetria. Subtle intention tremor R>L. Gait Normal casual, toe, heel and tandem gait. Motor Examination RUE Strength deltoid, biceps, triceps, wrist extensors, wrist extensors, wrist flexor, cotton washer strength 5/5. LUE Strength deltoid, biceps, triceps, wrist extensors, wrist extensors, wrist flexor, cotton washer strength 5/5. RLE Strength illopsoas, quadriceps, tibialis anterior, and gastrocnemius strength 5/5. LLE Strength illopsoas, quadriceps, tibialis anterior, and gastrocnemius strength 5/5. Tone Normal tone x4 extremities. Reflexes: RUE biceps reflex 2, LUE biceps reflex 2, RLE knee reflex 1, LLE knee reflex 1, Assessment and Plan Essential Tremor Patient presented with action tremor in the right hand that has been occurring for about 20 years with progressive worsening. The tremors is present in bilateral hands on exam today. These findings are most consistent with benign essential tremor. There are no findings suggestive of a neurodegenerative process such as Parkinson's disease. He had a CT scan of the brain 08/24/22 at [facility] that revealed that was normal. He had a CT scan of the cervical spine 08/24/22 that revealed degenerative changes, mild to moderate stenosis of the right C6-C7. He was trialed on primidone but had SOB. He has had a heart attack in the past with stents placed and is taking Coreg. Cardiology approved changing to propranolol but he has had increase in cramping. His tremors have improved with propranolol. His cramping has resolved on its own. Dizziness: New- the patient reports a sudden onset of dizziness while helping his friend move in [place]. Symptoms manifested as room spinning and lightheadedness with standing too quickly and moving his head. He reports CT brain obtained in ER was okay . He does recall having IV dye injected which sounds like he also had CTA done. He is unsure of which hospital he went to. He was prescribed meclizine which had marginal benefit. Medrol dose pack has helped lessen his symptoms. He does have nystagmus on exam. PLAN: He will call the office once he gets home to let us know which hospital he went to so we can get records. I will obtain VNG evaluation in order to assess the central and peripheral vestibular system which may be contributing to the patient's findings on neurological exam, clinical symptoms, and balance plate evaluation results, in order to potentially treat the underlying cause and avoid the high morbidity associated with potentially fall preventable falls. I will order vestibular therapy for the patient. Continue propranolol 20mg PO BID for tremor. He was advised to change positions slowly. I counseled the patient on fall precautions. I discussed the high risk of trauma and debility associated with falls. Patient verbalized understanding. Follow up 6 weeks documented in this encounter [facility] 10-31-2024 Telephone encounter Note Sent. [facility] 10-31-2024 Miscellaneous Notes Sent. Called and spoke to patient, he did have CT of brain done, he states he had the disc but forgot it in [place]. He would like to have a steroid course sent to [facility] in [place] Patient called in and states that he has had a case of Vertigo since 10/01 and has an appt on 11/12 and is wondering if there is anything to be done in the meantime? Thank you! documented in this encounter [facility] 10-31-2024 Telephone encounter Note Called and spoke to patient, he did have CT of brain done, he states he had the disc but forgot it in [place]. He would like to have a steroid course sent to [facility] in [place] [facility] 10-31-2024 Telephone encounter Note Patient called in and states that he has had a case of Vertigo since 10/01 and has an appt on 11/12 and is wondering if there is anything to be done in the meantime? Thank you! [facility] 10-31-2024 History of Present illness Narrative Associated Problem(s): Thoracic spondylosis without myelopathy Was following with PM several years ago, stopped going due to feeing like he was no longer seeing results. Is requesting to go back to different PM at this time for back pain,. Referral sent. Associated Problem(s): Vertigo Was in [place] helping a friend move, woke up and [...] 63 y.o. male who presents for Dizziness. [facility] Neurology- Dr. Brown Endocrinology- Dr. Ortiz Was in [place] helping a friend move, woke up and [...] Pain Medicine Vertigo - Primary Was in [place] helping a friend move, woke up and [...] 25 MG tablet documented in this encounter [facility] 10-31-2024 Instructions Reynold Flores NP - 10/31/2024 3:[address] Zazueta office and advise them on the Vertigo- make an appointment to see them BANDAR! Utilize [employer] print outs for home exercises. documented in this encounter [facility] 09-18-2024 Telephone encounter Note I DID SEND A REFILL PT MAY NEED A PRIOR AUTHORIZATION THANKS [facility] 09-18-2024 Miscellaneous Notes I DID SEND A REFILL PT MAY NEED A PRIOR AUTHORIZATION THANKS Please refill omnipod dash pods please and thank you. Pt is going out of town for thanksgiving and requested through pharmacy. Please send BANDAR. Thank you! documented in this encounter [facility] 09-18-2024 Telephone encounter Note Please refill omnipod dash pods please and thank you. Pt is going out of town for thanksgiving and requested through pharmacy. Please send BANDAR. Thank you! 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 insulin (CMS/HCC) Mixed hyperlipidemia [...] hyperglycemia, with long-term current use of insulin ([facility]) - POCT glucose manually resulted - POCT glycosylated hemoglobin (Hb A1C) docked device We will decrease his basal rate to 1.4 units/hour keep ISS and ICR the same Presence of insulin pump (external) (internal) Encounter for fitting and adjustment of insulin pump prison (current) use of insulin ([facility]) Vitamin D deficiency, unspecified Mixed hyperlipidemia ([facility]) Class 1 obesity due to excess calories [...] months (around 12/11/2024). documented in this encounter [facility] 02-07-2024 History of Present illness Narrative Subjective Janis Gaming is a [...] remains on appropriate GDMT He sustained anterior WI 2013 with PCI of the LAD, subsequent [...] disease 2. Ischemic cardiomyopathy 3. History of WI (myocardial infarction) 4. History of PTCA 5. Mixed hyperlipidemia 6. Essential hypertension 7. Type 2 diabetes mellitus without complication, with long-term current use of insulin (Multi) 8. BMI 32.0-32.9,adult Scribe Attestation By signing my name below, I, Kyra Cristiana HAMMER , Scribe attest that this documentation has been prepared [...] discussion and plan. documented in this encounter [facility] Work Phone: 02-07-2024 Instructions Kyra Plunkett [...] Increase physical activity. documented in this encounter [facility] Work Phone: 08-07-2023 Evaluation note Encounter [...] your family physician for any further concerns. [employer] Other 12-01-2022 NoteHNO ID: [id number] Author: Katty Jean Baptiste MD Service: ? [...] supervised home exercise program (HEP): No 5. 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 EXAMINATION: [id number]: Scoliosis: No Pelvic Tilt: No Leg Length [...] osseous abnormality evident. IMPRESS (more content not included)...[facility]12-01-2022 History of Present illness Narrative* Katty Jean [...] supervised home exercise program (HEP): No 5. 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 EXAMINATION: [id number]: Scoliosis: No Pelvic Tilt: No Leg Length [...] Hx of SCS (medtronic MRI conditional) in [place] in 2013 - helped LBP. CT thoracic shows stimulation [...] which included preparing to see the patient, [id number] patient care, completing clinical documentation, obtaining and/or reviewing separately obtained history, performing a medically appropriate examination, counseling and educating the pat ient/family/caregiver, ordering medications, tests, or procedures, communicating with other HCPs (not separately reported), independently interpreting results (not separately reported), communicatingresults to the patient/family/caregiver, and care coordination (not separately reported). Katty Jean Baptiste MD [facility] Miscellaneous Notes* Telephone Encounter - Gardenia Man MA - 06/22/2022 3:22 PM EDT Patient was advised of the following: This is a follow up phone call regarding your appointment with Dr Jean Baptiste, [facility]. 1) Have you been evaluated [...] need to reschedule please call us at [phone]. Left VM with new patient policy advised to call office with any questions or concerns Gardenia Man MA [facility]25[facility]2022 NotePROCEDURE: CT TSPINE WO CON COMPARISON: X-ray [...] Electronically authenticated by: WINSOME WYNN Date: 2022-01-14 09:25[facility] Diagnosis Thoracic radiculitis- Primary Thoracic or lumbosacral neuritis or radiculitis, unspecified Degeneration of thoracic intervertebral disc Degeneration of thoracic or thoracolumbar intervertebral disc Costochondral pain Painful respiration Diabetes 1.5, managed as type 1 (HCC) Type II or unspecified type diabetes mellitus without mention of complication, not stated as uncontrolled [facility] Diagnosis Two-vessel coronary artery disease Ischemic cardiomyopathy Other specified forms of chronic ischemic heart disease History of WI (myocardial infarction) Old myocardial infarction History of PTCA Postsurgical percutaneous transluminal coronary angioplasty status Mixed hyperlipidemia Essential hypertension Unspecified essential hypertension Type 2 diabetes mellitus without complication, with long-term current use of insulin (Multi) BMI 32.0-32.9,adult documented in this encounter [facility] Work Phone: Evaluation note* Diagnosis Type [...] tremor Essential tremor [facility] Diagnosis Type 2 diabetes mellitus without complication, with long-term current use of insulin (CMS/[facility])- Primary Hyperlipidemia, unspecified hyperlipidemia type (CMS/HCC) Essential hypertension (CMS/HCC) Unspecified essential hypertension URTI (acute upper respiratory infection) Acute upper respiratory infections of unspecified site Medicare annual wellness visit, subsequent- Primary Pigmented skin lesion suspicious for malignant neoplasm Essential tremor Type 2 diabetes mellitus with hyperglycemia, with long-term current use of insulin ([facility])- Primary Presence of insulin pump (external) (internal) Encounter for fitting and adjustment of insulin pump terminal operator (current) use of insulin ([facility]) Vitamin D deficiency, unspecified Mixed hyperlipidemia ([facility]) Mixed hyperlipidemia Class 1 obesity due to excess calories with serious comorbidity and body mass index (BMI) of 34.0 to 34.9 in adult Hypoglycemia Hypoglycemia, unspecified [facility] Diagnosis Type 2 diabetes mellitus without complication, with long-term current use of insulin (/[facility])- Primary Hyperlipidemia, unspecified hyperlipidemia type (CMS/HCC) Essential hypertension ([facility]/HCC) Unspecified essential hypertension URTI (acute upper respiratory infection) Acute upper respiratory infections of unspecified site Medicare annual wellness visit, subsequent- Primary Pigmented skin lesion suspicious for malignant neoplasm Essential tremor Type 2 diabetes mellitus with hyperglycemia, with long-term current use of insulin ([facility]) [facility] Diagnosis Type 2 diabetes mellitus without complication, with long-term current use of insulin (/[facility])- Primary Hyperlipidemia, unspecified hyperlipidemia type (CMS/HCC) Essential [...] complication, with long-term current use of insulin ([facility])- Primary Hyperlipidemia, unspecified hyperlipidemia type (CMS/HCC) Essential [...] Dizziness and giddiness [facility] [...] spondylosis without myelopathy Lumbosacral spondylosis without myelopathy Essential tremor- Primary Dizziness Dizziness and giddiness documented in [facility] encounter [facility] Healthcare[facility] general Narrative - Reported* Type Description Date Medical History diabetes Medical History chronic back pain Medical History heart attack Surgical History 3 stents in heart Surgical History appendectomy Surgical History back surgery L5-S1- implant put in Hospitalization History pneumonia Hospitalization History [facility] Hospitalization History diabetes [employer] Other Reason for referral (narrative)* Consultation (Routine) - Authorized Specialty Diagnoses / Procedures Referred By Sylvia pena Referred To Contact Cardiology Diagnoses Two-vessel coronary artery disease Procedures Follow Up In Cardiology Chang Barba DO [address] [place], [place] [id number] Chang Barba DO [address] [place] [address], [place] [address] Referral ID Status Reason Start Date Expiration Date V isits Requested Visits Authorized [id number] Authorized 02/07/2024 02/06/2025 1 1 [facility] Work Phone: Summary Purpose Family History Unknown Family Member Name Dates Details No pertinent [...] He has known ASHD with remote anterior WI in 2013 with revascularization of the LAD at that time. He had normal stress testing in 2019. He has underlying diabetes, hypertension and obesity but is maintaining reasonable activity and exercising 2-3 times weekly.He did have and September 2021. * Recommendations, obtain appropriate laboratories, counseling on dietary discretion, weight loss andexercise and follow-up in 1 year * JANIS GAMING is being seen for an annual follow-up of. * 62-year-old gentleman returns for follow-up he is doing well he has no cardiovascular complaint. Heremains active without nitrate usage or hospitalizations. * He sustained anterior WI 2013 with PCI of the LAD, subsequent [...] section and content) DATE CREATED AUTHOR 11/12/2018 [facility] DATE CREATED AUTHOR AUTHOR'S ORGANIZ ATION 10/29/[address] [facility] DATE CREATED AUTHOR AUTHOR'S ORGANIZ ATION 12/12/2019 [facility] [facility] DATE CREATED AUTHOR AUTHOR'S ORGANIZ ATION 09/23/2022 [facility] DATE CREATED AUTHOR AUTHOR'S ORGANIZ ATION 01/04/2023 [facility] DATE CREATED AUTHOR AUTHOR'S ORGANIZ ATION 02/15/2023 [facility] DATE CREATED AUTHOR AUTHOR'S ORGANIZ ATION 02/16/2023 [facility] DATE CREATED AUTHOR AUTHOR'S ORGANIZ ATION 11/01/2024 [facility] DATE CREATED AUTHOR AUTHOR'S ORGANIZ ATION 11/14/2024 [facility] EPIC DATE CREATED AUTHOR AUTHOR'S ORGANIZ ATION 11/16/2024 [facility] Source Comments (unrecognize d section and content) In the event this informatio n is protected by the Federal Confidentiality of Alcohol and Drug Abuse Patient Records regulations: The Federal rules restrict any use of the information to criminally investigate or prosecute any alcohol or drug abuse patient.[facility]healthIn the event this information is protected by the Federal Confidentiality of Alcohol and Drug Abuse Patient Records regulations: The Federal rules restrict any use of the information to criminally investigate or prosecute any alcohol or drug abuse patient.[facility] Reason for Visit (unrecogniz ed section and content) Reason Comments Appointment Pain management Reason Comments Rib Pain and Mid Back on left side Reason Comments Follow-up 1 year Reason Comments Tremors Reason Comments Diabetes Follow-up Reason Comments Dizziness Reason Comments Tremors Care Teams (unrecognized sec tion and content) Operations Chief Relationship Specialty Start Date End Date Paul Jarvis Sr. [address] [place] [address] PCP - General Family Practice 05/19/22 Poonam Gamez PA-C [address] [place] [address] Referring 05/19/22 Operations Chief Relationship Specialty Start Date End Date Paul Jarvis Sr. [address] [place] [address] PCP - General Family Medicine 05/19/22 Poonam Gamez PA-C [address] [place] [address] Referring 05/19/22 Operations Chief Relationship Specialty Start Date End Date Shaikh Simental MD [address] [place] [address] PCP - General Internal Medicine 02/07/24 Chang Barba DO [address] [facility] 2, [place] [address] [place] [address] Consulting Physician Cardiology 02/07/24 Operations Chief Relationship Specialty Start Date End Date Ilia Hernandez MD [address] [place] [phone] PCP - Devoted 05/23/21 Ilia Hernandez MD [address] [place] [phone] PCP - General Family Medicine 05/27/24 Reynold Flores NP [address] [place] [address] Nurse Practitioner Family Medicine 05/22/24 Reynold Flores NP [address] [place] [address] Nurse Practitioner Family Medicine 05/27/24 Operations Chief Relationship Specialty Start Date End Date Ilia Hernandez MD [address] [place] [phone] PCP - Devoted 05/23/21 10/22/24 Ilia Hernandez MD [address] [place] [phone] PCP - General Family Medicine 05/27/24 Reynold Flores NP [address] [place] [address] Nurse Practitioner Family Medicine 05/22/24 Reynold Flores NP [address] [place] [address] Nurse Practitioner Family Medicine 05/27/24 Operations Chief Relationship Specialty Start Date End Date Ilia Hernandez MD [address] [place] [address] PCP - Devoted 05/23/21 10/22/24 Ilia Hernandez MD [address] [place] [address] PCP - General Family Medicine 05/27/24 Reynold Flores NP [address] [place] [address] Nurse Practitioner Family Medicine 05/22/24 Reynold Flores NP [address] [place] [address] Nurse Practitioner Family Medicine 05/27/24 Operations Chief Relationship Specialty Start Date End Date Ilia Hernandez MD [address] [place] [address] PCP - Devoted 05/23/21 10/22/24 Ilia Hernandez MD [address] [place] [address] PCP - General Family Medicine 05/27/24 Reynold Flores NP [address] [place] [address] Nurse Practitioner Family Medicine 05/22/24 Reynold Flores NP [address] [place] [address] Nurse Practitioner Family Medicine 05/27/24 Operations Chief Relationship Specialty Start Date End Date Ilia Hernandez MD [address] [place] [phone] PCP - General Family Medicine 05/27/24 Shaikh Simental MD [address] [place] [address] PCP - Devoted 10/23/24 Reynold Flores NP [address] [place] [address] Nurse Practitioner Family Medicine 05/22/24 Reynold Flores NP [address] [place] [address] Nurse Practitioner Family Medicine 05/27/24 Operations Chief Relationship Specialty Start Date End Date Ilia Hernandez MD [address] [place] [address] PCP - General Family Medicine 05/27/24 Shaikh Simental MD [address] [place] [address] PCP - Devoted 10/23/24 Reynold Flores NP [address] [place] [address] Nurse Practitioner Family Medicine 05/22/24 Reynold Flores NP [address] [place] [address] Nurse Practitioner Family Medicine 05/27/24 Operations Chief Relationship Specialty Start Date End Date Ilia Hernandez MD [address] [place] [phone] PCP - General Family Medicine 05/27/24 Shaikh Simental MD [address] [place] [address] PCP - Devoted 10/23/24 Reynold Flores NP [address] [place] [address] Nurse Practitioner Family Medicine 05/22/24 Reynold Flores NP [address] [place] [address] Nurse Practitioner Family Medicine 05/27/24 Operations Chief Relationship Specialty Start Date End Date Ilia Hernandez MD [address] [place] [phone] PCP - General Family Medicine 05/27/24 Shaikh Simental MD [address] [place] [address] PCP - Devoted 10/23/24 Reynold Flores NP [address] [place] [address] Nurse Practitioner Family Medicine 05/22/24 Reynold Flores NP [address] [place] [address] Nurse Practitioner Family Medicine 05/27/24 Operations Chief Relationship Specialty Start Date End Date Ilia Hernandez MD [address] [place] [address] PCP - General Family Medicine 05/27/24 Shaikh Simental MD [address] [place] [address] PCP - Devoted 10/23/24 Reynold Flores NP [address] [place] [address] Nurse Practitioner Family Medicine 05/22/24 Reynold Flores NP [address] [place] [address] Nurse Practitioner Family Medicine 05/27/24 FOR RECORDS [...] BE BASED ON THE PRIMARY CLINICAL RECORDS. [facility]. provides no warranty or guarantee of the accuracy or completeness of information in this document.
== END 2024-11-21 09:27 | disposition home or self-care (01) ==
LOC: CT 09:26
PROVIDERS: Visit Provider Anesthesiology
DX: M96.1 Postlaminectomy syndrome, not elsewhere classified (principal); M48.062 Spinal stenosis, lumbar region with neurogenic claudication; M51.369 Other intervertebral disc degeneration, lumbar region without mention of lumbar back pain or lower extremity pain
CPT/HCPCS: 72070; 72110; 72131

== ENCOUNTER 2024-12-06 23:35 | Emergency (ER) | payer OTHER, SELFPAY ==
[2024-12-06 23:39] VITALS: BP 134/68; PULSE 92; TEMP 39.3; O2SAT 92; BMI 33.7
--- OUTSIDE RECORDS SUMMARY | 2024-12-06 23:42 | XMS_ITS | CCD ---
Author Organization [facility] Care Team Providers Care [employer] Name Role Phone UNKNOWN, PROVIDER Attending Unavailable CARR, PAUL Primary Care Unavailable House, Paul Cherry Unavailable Unavailable Unavailable House Sr., Paul Robert Primary Care Provider Poonam Gamez PA-C Unavailable House Sr., [facility] Primary Care Provider Poonam Gamez PA-C Unavailable KATTY JEAN BAPTISTE Attending Unavailable HOUSE SR, [facility] Care UnaKATTY Adam Attending Unavailable CARR SR, [facility] Care Unava joi ALTAMIRANOD, HOLLOWAY H Primary [...] Unavailable FAWWAD, HOLLOWAY H Primary Care Unavailable COHOCTON, DR WINSOME Tse Consulting Unavailable FAWWAD, HOLLOWAY H Attending Unavailable FAWWAD, HOLLOWAY H Admitting Unavailable FAWWAD, HOLLOWAY H Primary Care Unavailable [facility], DR BEN Neely Consulting Unavailable FAWWAD, HOLLOWAY H Consulting Unavailable Chang Barba Attending Unavailable Chang Barba Referring Unavailable Dr. Paul Jarvis Robert Primary Care Unava ilable Dary Cuevas Unavailable Hola STEIN, Primary Care Provider Chang Barba DO Unavailable [phone] Ilia Hernandez MD Unavailable Mark DATA TECHNICIAN, Reynold Unavailable Ilia Hernandez MD Primary Care Provider Mark DATA TECHNICIAN, Reynold Unavailable Ilia Hernandez MD Unavailable CHANG BARBA Attending Unavailable FAWWAD, HOLLOWAY Primary Care Unavailable Hola STEIN, Unavailable FLAVIA FRAUSTO Attending Unavailable FAWWAD, Attending Unavailable FAWWAD, HOLLOWAY Attending Unavailable BEN BROWN Attending Unavailable EDDEI BRAXTON Attending Unavailable FAWWAD, HOLLOWAY Referring Unavailable REYNOLD FLORES Attending Unavailabl FLAVIA Aggarwal Attending Unavailable FLAVIA FRAUSTO Attending Unavailable ABDI ORTIZ Attending Unavailable ABDI ORTIZ Referring Unavailable REYNOLD FLORES Attending Unavailkeny Amado MD, Praveena Joaquin Attending Unavailable FLAVIA FRAUSTO Referring Unavailable PAUL JARVIS Primary Care Unavailable Allergies Allergy Classification Reported Allergen(s) Allergy Type Date of Onset Reaction(s) Facility (10 sources) Angiotensin Converting Enzyme (Rakel) Inhibitors; Translations: [RAKEL Inhibitors] Allergy to drug (finding) 3 Cough [facility] 3 Repository (20 sources) Diclofenac; Translations: [diclofenac] Drug Allergy 7 Anaphylaxis, Unknown, Other, Shortness of breath [facility] (11 sources) Lisinopril; Translations: [lisinopril] Drug Allergy 3 [facility] Work Phone: (20 sources) metFORMIN; Translations: [metformin] Drug Allergy 4 Other: See Comments, Cough, Other, Unknown [facility] (9 sources) Thimerosal and Related; Translations: [Thimerosal and Related] Allergy to drug (finding) [facility] 250 DO Work Phone: (7 sources) Other Allergy to substance (finding) Cough [facility] 250 DO Work Phone: (1 source) Diclofenac Drug Allergy [facility] Repository (1 source) metFORMIN Drug Allergy 3 [facility] Repository (1 source) Angiotensin-con verting enzyme inhibitor agent Drug Intolerance 3 [facility] (19 sources) Thimerosal; Translations: [THIMEROSAL] Drug Allergy 3 [facility] Work Phone: (17 sources) Angiotensin-con verting enzyme inhibitor agent Drug Intolerance 3 Cough [facility] (15 sources) Lisinopril Propensity to adverse reactions 4 [facility] Healthcare Medications Current Medications Medication Drug Class(es) [...] Sabina, beta-Adrenergic Sabina Start: 11-15-19 End: 08-20-20 take 1 tablet by mouth twice daily carvedilol (Coreg) 6.25 mg tablet Indications: Ischemic cardiomyopathy Take 1 tablet (6.25 mg) by mouth 2 times a day. 180 tablet 3 10/30/2023 Active Comment on above: carvedilol 6.25 mg t ablet glimepiride 4 mg oral tablet (20 sources) Sulfonylurea Start: 10-21-20 take 1 tablet [...] let 0.1 ml glucagon 5 mg/ml auto-injector (14 sources) Antihypoglycemic Agent Start: 024 End: 025 [...] Pump (Omnipod DASH Pods, Gen 4,) misc (18 sources) Start: 10-21-2024 Insulin Disposable Pump ([facility]ip[facility] DASH Pods, Gen 4,) [facility] Indications: Type 2 diabetes mellitus with hyperglycemia, with long-term current use of insulin (CMS/HCC) USE DIRECTED * change pod EVERY 72 HOURS * 30 each 1 10/21/2024 Active Start: 09-18-2024 Insulin Dispos able Pump (Omnipod DASH Pods, Gen 4,) mis Indications: Type 2 diabetes mellitus with hyperglycemia, [...] Active meclizine hydrochloride 25 mg oral tablet (12 sources) Antiemetic Start: 10-01-2024 End: 11-30-2024 take [...] or 0.5 MG/DOSE, 2 MG/3ML solution pen-injector (17 sources) Start: 10-28-19 25 inject 0.5 mg by subcutaneous injection every [...] Jul, Active pregabalin 75 mg oral capsule (16 sources) take 1 capsule by mouth in the morning pregabalin (Lyrica) 75 MG capsule Take 75 mg by mouth in the morning and 75 mg before bedtime. Active pregabalin (LYRI CA) 50 mg capsule Lyrica 50 mg capsule 0 Active Comment on above: Lyrica 50 mg capsule propranolol hydrochloride 20 mg oral tablet (18 sources) beta-Adrenergic Sabina Start: End: take 1 [...] TAKE [address] TABLET [address] [facility] 1 HOUR BEFORE SEXUAL ACTIVITY NEEDED. [...] Ischemic cardiomyopathy; Translations: [Atherosclerotic heart disease of [place] coronary artery without angina pectoris] Onset: 11-01-2018 02-07-2024 Chronic Diabetes mellitus with complications (3 sources) Hyperglycemia due to type 2 diabetes mellitus; Translations: [Type 2 diabetes mellitus with hyperglycemia] 09-10-2024 Chronic Diabetes mellitus without complication (20 sources) Diabetes mellitus; Translations: [Diabetes mellitus without mention of complication, type II or unspecified type, not stated as uncontrolled] Onset: 04-30-2014 Chronic Diabetes mellitus without complication (18 sources) Presence of insulin pump (external) (internal); Translations: [Insulin pump present] Onset: 01-02-2023 08-26-2024 Episodic Disorders of lipid metabolism (20 sources) Hyperlipidemia, unspecified; Translations: [Hyperlipidemia] Onset: 11-01-2018 02-07-2024 Chronic Essential hypertension (20 sources) Essential (primary) hypertension; Translations: [Hypertensive disorder] Onset: 08-26-2022 02-07-2024 Chronic Nutritional deficiencies (17 sources) Vitamin D deficiency; Translations: [Vitamin D deficiency, unspecified] Onset: 08-26-2024 08-26-2024 Chronic Osteoarthritis (17 sources) Osteoarthritis of right hip joint; Translations: [Unilateral primary osteoarthritis, right hip] Onset: 08-08-2018 01-03-2024 Chronic Other aftercare (1 source) intermediate (current) use of aspirin; Translations: [PROCUREMENT DIRECTOR CURRENT USE OF ASPIRIN] Onset: 01-02-2023 Episodic Other aftercare (1 source) Other care home (current) drug therapy; Translations: [OTH RETIREMENT CURRENT DRUG THERAPY] Onset: 01-02-2023 Episodic Other aftercare (17 sources) Long-term current use of insulin; Translations: [healthcare management consultant (current) use of insulin] Onset: 08-26-2024 08-26-2024 Episodic Other connective tissue disease (1 source) Arthrodesis status; Translations: [ARTHRODESIS STATUS] Onset: 01-02-2023 Episodic Other endocrine disorders (2 sources) Hypoglycemia; Translations: [Hypoglycemia, unspecified] 09-10-2024 Chronic Other hereditary and degenerative nervous system conditions (20 sources) Essential tremor; Translations: [Essential tremor] Onset: 03-04-2024 08-20-2024 Chronic Other nervous system disorders (1 source) Other chronic pain; Translations: [OTHER CHRONIC PAIN] Onset: 05-02-2022 Chronic Other nutritional; endocrine; and metabolic disorders (5 sources) Body mass index 30+ - obesity; Translations: [Obesity, unspecified] Onset: 02-07-2024 02-07-2024 Chronic Other nutritional; endocrine; and metabolic disorders (20 sources) Obesity; Translations: [Obesity, unspecified] Onset: 08-26-2024 [...] adult] Onset: 02-07-2024 Chronic Residual codes; unclassified (17 sources) Sleep apnea; Translations: [Sleep apnea, unspecified] [...] angioplasty status] Onset: 02-04-2022 Episodic Mood disorders (17 sources) Mood disorders Onset: 03-04-2024 03-04-2024 Nonspecific chest pain (20 sources) Anterior chest wall pain; Translations: [Other chest pain] Onset: 02-02-2022 Episodic Other aftercare (3 sources) intermediate (current) use of insulin; Translations: [PROCUREMENT DIRECTOR CURRENT USE OF INSULIN] Onset: 01-02-2023 Episodic Other injuries and conditions due to external causes (1 source) Other injury of unspecified body region, initial encounter; Translations: [OTHER INJURY UNS BODY REGION INIT] Onset: 08-26-2022 Episodic Other injuries and conditions due to external causes (17 sources) Injury of finger of right hand; Translations: [Unspecified injury of right wrist, hand and finger(s), initial encounter] Onset: 05-27-2024 05-27-2024 Episodic Other lower respiratory disease (4 sources) Respiratory disorder, unspecified; Translations: [RESPIRATORY DISORDER UNSPECIFIED] Onset: 03-29-2022 Episodic Other lower respiratory disease (1 source) Pleurodynia; Translations: [PLEURODYNIA] Onset: 02-04-2022 Episodic Other skin disorders (17 sources) Suspected malignant pigmented skin lesion; Translations: [Disorder of pigmentation, unspecified] Onset: 03-04-2024 03-04-2024 Episodic Other upper respiratory infections (20 sources) Acute pharyngitis, unspecified; Translations: [Acute upper [...] Test Name Value Interpretation Reference Range Facility CT Lumbar spine WO contrasto n 11-22-2024 [place] [address] CT Scan Report Signed Patient: JANIS GAMING MR#: [id number] : 1960 Acct:[id number] Age/Sex: 63 / M ADM Date: 11/21/24 Loc: CT Attending Dr: Praveena Amado M.D. Ordering Physician: Praveena Amado M.D. Date of Service: 11/21/24 Procedure(s): CT lumbar spine wo con Accession Number(s): [id number] cc: REYNOLD FLORES [place] [address] Patient Name: JANIS GAMING MRN: [id number] date: 1960 Sex: M Assigned Patient Location: CT Current Patient Location: Accession/Order Number: [id number] Exam Date: 11/21/2024 09:35 Report Date: 11/22/2024 05:43 At the request of: PRAVEENA AMADO Procedure: CT lumbar spine wo con EXAMINATION: CT lumbar spine wo con HISTORY: Lumbar Pain, Post Laminectomy COMPARISON: No relevant comparison available. TECHNIQUE: Axial, Coronal, and Sagittal images were created without IV contrast. Dose reduction techniques were achieved by using automated exposure control and/or adjustment of mA and/or kV according to patient size and/or use of iterative reconstruction technique. FINDINGS: VERTEBRAL BODIES: Normal height and alignment of vertebral bodies; no fracture or bone lesion. FACET JOINTS: Moderate-marked degenerative facet arthropathy L4-L5 resulting in bone encroachment and neural foramen. Multilevel mild arthropathy. No disruption or abnormal widening. DISCS: Complete loss of disc height at L5-S1. Mild diffuse disc bulging L2-L3 through L4-L5 without significant disc height reduction; mild foramen narrowing at these levels. CENTRAL CANAL: Electrodes within central canal entering at T12-L1 and extending cephalad within the posterior central canal. No evidence of hemorrhage. PARASPINAL AREA: No visible mass. CT/CT lumbar spine wo con IMPRESSION: 1. Thoracic central canal electrodes. 2. Multilevel mild degenerative disc disease with with mild foramen narrowing; moderate-marked degenerative facet arthropathy at L4-L5 with mild to moderate foramen narrowing. 3. Marked degenerative disc disease L5-S1 with moderate foramen narrowing. 4. No specific findings to account for patient's symptoms. Electronically authenticated by: BEN CAMACHO Date: 11/22/2024 05:43 Dictated By: Ben Camacho M.D. Signed By: 11/22/2446 DD/ TD/TT: Neuro Urologist: [facility] Radiology, Radiologist, MD - 11/22/2024 [place] [address] CT Scan Report Signed Patient: JANIS GAMING MR#: [id number] : 1960 Acct:[id number] Age/Sex: 63 / M ADM Date: 11/21/24 Loc: CT Attending Dr: Praveena Amado M.D. Ordering Physician: Praveena Amado M.D. Date of Service: 11/21/24 Procedure(s): CT lumbar spine wo con Accession Number(s): [id number] cc: REYNOLD FLORES [place] [address] Patient Name: JANIS GAMING MRN: [facility]:[id number] date: 1960 Sex: M Assigned Patient Location: CT Current Patient Location: Accession/Order Number: [id number] Exam Date: 11/21/2024 09:35 Report Date: 11/22/2024 05:43 At the request of: PRAVEENA AMADO Procedure: CT lumbar spine wo con EXAMINATION: CT lumbar spine wo con HISTORY: Lumbar Pain, Post Laminectomy COMPARISON: No relevant comparison available. TECHNIQUE: Axial, Coronal, and Sagittal images were created without IV contrast. Dose reduction techniques were achieved by using automated exposure control and/or adjustment of mA and/or kV according to patient size and/or use of iterative reconstruction technique. FINDINGS: VERTEBRAL BODIES: Normal height and alignment of vertebral bodies; no fracture or bone lesion. FACET JOINTS: Moderate-marked degenerative facet arthropathy L4-L5 resulting in bone encroachment and neural foramen. Multilevel mild arthropathy. No disruption or abnormal widening. DISCS: Complete loss of disc height at L5-S1. Mild diffuse disc bulging L2-L3 through L4-L5 without significant disc height reduction; mild foramen narrowing at these levels. CENTRAL CANAL: Electrodes within central canal entering at T12-L1 and extending cephalad within the posterior central canal. No evidence of hemorrhage. PARASPINAL AREA: No visible mass. CT/CT lumbar spine wo con IMPRESSION: 1. Thoracic central canal electrodes. 2. Multilevel mild degenerative disc disease with with mild foramen narrowing; moderate-marked degenerative facet arthropathy at L4-L5 with mild to moderate foramen narrowing. 3. Marked degenerative disc disease L5-S1 with moderate foramen narrowing. 4. No specific findings to account for patient's symptoms. Electronically authenticated by: BEN CAMACHO Date: 11/22/2024 05:43 Dictated By: Ben Camacho M.D. Signed By: 11/22/2446 DD/ TD/TT: Neuro Urologist: [facility] [employer] Radiology Study observation (narrative) [facility] CT Lumbar spine WO contrastO rdered By: Radiologist Radiology on 11-22-2024 [facility] [employer] Work Phone: No Panel Informationon 11-22 Radiology Study observation (narrative) [facility] XR LUMBAR SPINE MIN [address] [address] XRay Report Signed Patient: JANIS GAMING MR#: [id number] : 1960 Acct:[id number] Age/Sex: 63 / M ADM Date: 11/21/24 Loc: CT Attending Dr: Praveena Amado M.D. Ordering Physician: Praveena Amado M.D. Date of Service: 11/21/24 Procedure(s): XR lumbar spine min 4V Accession Number(s): [id number] cc: REYNOLD FLORES; Praveena Amado M.D. The [address] [address] Patient Name: JANIS GAMING MRN: [facility]:[id number] date: 1960 Sex: M Assigned Patient Location: CT Current Patient Location: CT Accession/Order Number: [id number] Exam Date: 11/21/2024 09:45 Report Date: 11/22/2024 05:51 At the request of: PRAVEENA AMADO Procedure: XR lumbar spine min 4V EXAMINATION: XR lumbar spine min 4V, XR thoracic spine 2V HISTORY: Lumbar Pain COMPARISON: CT lumbar spine 08/24/2022 FINDINGS: BONES: Multilevel mild-moderate degenerative facet arthropathy of lower lumbar spine. No fracture, spondylolisthesis, bone lesion. DISC SPACES: Multilevel mild degenerative disc disease of mid thoracic spine. Complete loss of disc space at L5-S1 with mild/moderate foramen narrowing.. PARASPINOUS: Neurostimulator pack within subcutaneous fat posterior to the pelvis with wires extending cephalad and entering the central canal at the T12-L1 level and extending cephalad with electrodes positioned over the T6-T8 levels. Mass versus dense calcifications along the right margin of T3-T5, approximately 4.4 x 2.2 cm. OTHER: Negative. XR/XR lumbar spine min 4V IMPRESSION: 1. L5-S1 marked degenerative disc disease and multilevel mild/moderate degenerative facet arthropathy; grossly stable. 2. Thoracic central spinal canal neurostimulator. 3. Mass versus summation artifact along the right margin of thoracic spine, T3-T5. CT chest with IV contrast is recommended for further evaluation. Electronically authenticated by: BEN CAMACHO Date: 11/22/2024 05:51 Dictated By: Ben Camacho M.D. Signed By: 11/22/24 0554 DD/ 0551 TD/TT: Neuro Urologist: [facility] Radiology, Radiologist, MD - 11/22/[address] [address] XRay Report Signed Patient: JANIS GAMING MR#: [id number] : 1960 Acct:[id number] Age/Sex: 63 / M ADM Date: 11/21/24 Loc: CT Attending Dr: Praveena Amado M.D. Ordering Physician: Praveena Amado M.D. Date of Service: 11/21/24 Procedure(s): XR lumbar spine min 4V Accession Number(s): [id number] cc: REYNOLD FLORES; Praveena Amado M.D. The [address] [address] Patient Name: JANIS GAMING MRN: [id number] date: 1960 Sex: M Assigned Patient Location: CT Current Patient Location: CT Accession/Order Number: [id number] Exam Date: 11/21/2024 09:45 Report Date: 11/22/2024 05:51 At the request of: PRAVEENA AMADO Procedure: XR lumbar spine min 4V EXAMINATION: XR lumbar spine min 4V, XR thoracic spine 2V HISTORY: Lumbar Pain COMPARISON: CT lumbar spine 08/24/2022 FINDINGS: BONES: Multilevel mild-moderate degenerative facet arthropathy of lower lumbar spine. No fracture, spondylolisthesis, bone lesion. DISC SPACES: Multilevel mild degenerative disc disease of mid thoracic spine. Complete loss of disc space at L5-S1 with mild/moderate foramen narrowing.. PARASPINOUS: Neurostimulator pack within subcutaneous fat posterior to the pelvis with wires extending cephalad and entering the central canal at the T12-L1 level and extending cephalad with electrodes positioned over the T6-T8 levels. Mass versus dense calcifications along the right margin of T3-T5, approximately 4.4 x 2.2 cm. OTHER: Negative. XR/XR lumbar spine min 4V IMPRESSION: 1. L5-S1 marked degenerative disc disease and multilevel mild/moderate degenerative facet arthropathy; grossly stable. 2. Thoracic central spinal canal neurostimulator. 3. Mass versus summation artifact along the right margin of thoracic spine, T3-T5. CT chest with IV contrast is recommended for further evaluation. Electronically authenticated by: BEN CAMACHO Date: 11/22/2024 05:51 Dictated By: Ben Camacho M.D. Signed By: 11/22/24 0554 DD/ 0551 TD/TT: Neuro Urologist: [facility] XR LUMBAR SPINE MIN 4VOrdere d By: Radiologist Radiology on 11-22-2024 [employer] Work Phone: XR Thoracic spine 2 [employer] 11-22-2024 [place] [address] XRay Report Signed Patient: JANIS GAMING MR#: [id number] : 1960 Acct:[id number] Age/Sex: 63 / M ADM Date: 11/21/24 Loc: CT Attending Dr: Praveena Amado M.D. Ordering Physician: Praveena Amado M.D. Date of Service: 11/21/24 Procedure(s): XR thoracic spine 2V Accession Number(s): [id number] cc: LUCIEN FLORES Andrius M.D. [place] [address] Patient Name: JANIS GAMING MRN: [id number] date: 1960 Sex: M Assigned Patient Location: CT Current Patient Location: CT Accession/Order Number: [id number] Exam Date: 11/21/2024 09:45 Report Date: 11/22/2024 05:51 At the request of: PRAVEENA AMADO Procedure: XR thoracic spine 2V EXAMINATION: XR lumbar spine min 4V, XR thoracic spine 2V HISTORY: Lumbar Pain COMPARISON: CT lumbar spine 08/24/2022 FINDINGS: BONES: Multilevel mild-moderate degenerative facet arthropathy of lower lumbar spine. No fracture, spondylolisthesis, bone lesion. DISC SPACES: Multilevel mild degenerative disc disease of mid thoracic spine. Complete loss of disc space at L5-S1 with mild/moderate foramen narrowing.. PARASPINOUS: Neurostimulator pack within subcutaneous fat posterior to the pelvis with wires extending cephalad and entering the central canal at the T12-L1 level and extending cephalad with electrodes positioned over the T6-T8 levels. Mass versus dense calcifications along the right margin of T3-T5, approximately 4.4 x 2.2 cm. OTHER: Negative. XR/XR thoracic spine 2V IMPRESSION: 1. L5-S1 marked degenerative disc disease and multilevel mild/moderate degenerative facet arthropathy; grossly stable. 2. Thoracic central spinal canal neurostimulator. 3. Mass versus summation artifact along the right margin of thoracic spine, T3-T5. CT chest with IV contrast is recommended for further evaluation. Electronically authenticated by: BEN CAMACHO Date: 11/22/2024 05:51 Dictated By: Ben Camacho M.D. Signed By: 11/22/24 0553 DD/ 0551 TD/TT: Neuro Urologist: [facility] Radiology, Radiologist, MD - 11/22/2024 [place] [address] XRay Report Signed Patient: JANIS GAMING MR#: [id number] : 1960 Acct:[id number] Age/Sex: 63 / M ADM Date: 11/21/24 Loc: CT Attending Dr: Praveena Amado M.D. Ordering Physician: Praveena Amado M.D. Date of Service: 11/21/24 Procedure(s): XR thoracic spine 2V Accession Number(s): [id number] cc: LUCIEN FLORES Andrius M.D. The [address] [address] Patient Name: JANIS GAMING MRN: [facility]:[id number] date: 1960 Sex: M Assigned Patient Location: CT Current Patient Location: CT Accession/Order Number: [id number] Exam Date: 11/21/2024 09:45 Report Date: 11/22/2024 05:51 At the request of: PRAVEENA AMADO Procedure: XR thoracic spine 2V EXAMINATION: XR lumbar spine min 4V, XR thoracic spine 2V HISTORY: Lumbar Pain COMPARISON: CT lumbar spine 08/24/2022 FINDINGS: BONES: Multilevel mild-moderate degenerative facet arthropathy of lower lumbar spine. No fracture, spondylolisthesis, bone lesion. DISC SPACES: Multilevel mild degenerative disc disease of mid thoracic spine. Complete loss of disc space at L5-S1 with mild/moderate foramen narrowing.. PARASPINOUS: Neurostimulator pack within subcutaneous fat posterior to the pelvis with wires extending cephalad and entering the central canal at the T12-L1 level and extending cephalad with electrodes positioned over the T6-T8 levels. Mass versus dense calcifications along the right margin of T3-T5, approximately 4.4 x 2.2 cm. OTHER: Negative. XR/XR thoracic spine 2V IMPRESSION: 1. L5-S1 marked degenerative disc disease and multilevel mild/moderate degenerative facet arthropathy; grossly stable. 2. Thoracic central spinal canal neurostimulator. 3. Mass versus summation artifact along the right margin of thoracic spine, T3-T5. CT chest with IV contrast is recommended for further evaluation. Electronically authenticated by: BEN CAMACHO Date: 11/22/2024 05:51 Dictated By: Ben Camacho M.D. Signed By: 11/22/24 0553 DD/ 0551 TD/TT: Neuro Urologist: [facility] XR Thoracic spine 2 ViewsOrd ered By: Radiologist Radiology on 11-22-2024 [employer] Work Phone: Glucose (Bld) [Mass/Vol]Orde red By: Idalmis Serra on 09-10-2024 Glucose Blood, POC 155 mg/dL [facility] - Hematology and Cell countson 09-10-2024 HbA1c (Bld) [Mass fraction] 6.9 % [facility] No Panel InformationOrdered By: Idalmis Serra on 09-10-2024 [employer] e COVID + FLU Quick Testingon 08-07-2023 SARS-CoV-2 (COVID-19) RNA BARNEY+probe Ql (Unsp spec) Positive [employer] Other COVID + FLU Quick Testing Negative [employer] Other Office Visit (Cardiology)on 02-14-2023 Follow-up visit Diagnoses/Problems Assessed History of PTCA (V45.82) (Z98.61) History of [place] (myocardial infarction) (412) (I25.2) Ischemic cardiomyopathy (414.8) [...] nitrate usage or hospitalizations. He sustained anterior [place] 2013 with PCI of the LAD, subsequent [...] 1 TABLET BY MOUTH TWICE DAILY Drug [place] [employer] Lancets 33Guse test blood sugar five times DAILY [employer] [place] DeviceUSE DIRECTED Nitroglycerin 0.4 MG Sublingual Tablet [...] negative for complaint. Vitals Vital Signs Recorded: [id number] 10:09AM Heart Rate66, L Radial Dxngbyvt555, LUE Onbbkskis66, LUE Height5 ft 10 in Bqrwax895 lb BMI Zsdgnhsnyx25.15 kg/m2 BSA Calculated2.28 Tobacco Useb) No PHQ-2 #1. Over the last 2 weeks have you felt down, depressed or hopeless? (If yes, answer PHQ-9 (more content not included)... Normal [facility] Tobacco Screening.on 023 Adult depression screening assessment No [facility] 250 DO Work Phone: Fall risk assessment c) Not medically indicated [facility] 250 DO Work Phone: Tobacco use status CPHS b) No [facility] [employer] [place] 250 DO Work Phone: Covid-19 PCR [facility]on 12-21 SARS-CoV-2 (COVID-19) RNA BARNEY+probe Ql (Unsp spec) Not detected Normal NOT DETECTED [facility] Comment on above: Result Comment: When diagnostic [...] for this test is supported by the [place] of Health and Human Service's declaration that [...] be used). Performed By: #### C VDTBH ####[facility] [address] [place] [id number]. Magdalene Mckenzie GROUP A STREP CULTUREon 12-21 S. pyogenes Ag Ql (Unsp spec) Culture Observations: NEGATIVE FOR GROUP A STREPTOCOCCUS. Normal [facility] Comment on above: Performed By: #### S SCRN, GRASTCX ####[facility] [address] [place], [place] [address]Rm. Magdalene Mckenzie STREPT SCREENon 12-31-2022 STREP SCREEN A Negative Normal NEGATIVE [facility] Comment on above: Performed By: #### S SCRN, GRASTCX ####[facility] [address] [place] [address]Dr. Magdalene Mckenzie XR CSPINE 2_3 VIEWSon 2021 [...] by: BEN CAMACHO Date: 2022-09-29 06:53 Normal [facility] CNOVon 09-22-2022 CNOV Office Visit (PAINLN ) JANIS GAMING ([id number]) 1960 M Date Time Provider Department 09/22/22 [...] supervised home exercise program (HEP): No 5. 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 EXAMINATION: ALCKKNNI-VSUVLQD-OPEN ERIOR: Scoliosis: No Pelvic Tilt: No Leg [...] right. Trache (more content not included)... Normal [facility] CT CSPINE WO CONon CT CSPINE WO CON EXAMINATION: CT CSPINE [...] by: SIMON RENDON Date: 2022-08-24 16:56 Normal [facility] CT HEAD WO CONon 08-24-2022 CT HEAD [...] by: GONZALO BERRY Date: 2022-08-24 16:40 Normal [facility] CT LSSAINT FRANCIS WO CONon [address] [facility] CT LUMBAR SPINE WITHOUT CONTRAST. HISTORY: UNSPECIFIED [...] by: EMORY NICOLE Date: 2022-08-24 16:58 Normal [facility] CNPGeorgette 06-22-2022 CNPN Telephone (LAQUITA) JANIS GAMING ([id number]) 1960 M Date Time Provider Department 06/22/22 KATTY JEAN BAPTISTE During your visit today, we recorded the following information about you: Gardenia Man MA 06/22/2022 3:24 PM Signed Patient was advised of the following: This is a follow up phone call regarding your appointment with Dr Jean Baptiste, which you are scheduled to see at [facility] on 06/23/2022. 1) Have you been evaluated [...] need to reschedule please call us at [phone]. Left VM with new patient policy advised [...] Status:Closed by GARDENIA MAN on 06/22/22 Normal [facility] XR CHEST 1 Von 04-27-2022 XR CHEST [...] BEN CAMACHO Date: 2022-04-27 11:19 Normal [facility] Covid-19 PCR ([facility])on SARS-CoV-2 (COVID-19) RNA BARNEY+probe Ql (Unsp spec) Not detected Normal NOT DETECTED [facility] Comment on above: Result Comment: This test is not yet approved or cleared by the [place] FDA. When there are no FDA-approved or cleared tests available, and other criteria are met, FDA can make tests available under an emergency access mechanism called an Emergency Use Authorization (EUA). The EUA for this test is supported by the [place] of Health and Human Service's (HHS's) declaration [...] consistent with SARS-CoV-2. Performed By: #### C [facility] ####[facility] [address] [place], [place] [address]DrJakub Mckenzie XR CHEST 2 Von 03-29-2022 XR [...] TWILA BRIZUELA Date: 2022-03-29 15:17 Normal [facility] CBC AUTO DIFFon 03-19-2022 BASO # 0.1 103/ul Normal 0.0-0.1 [facility] Comment on above: Performed By: #### C BC ####[facility] [address] [place], [place] [id number] Mckenzie Basophils/100 WBC (Bld) 0.5 % Normal 0.2-2.0 [facility] Comment on above: Performed By: #### C BC ####[facility] [address] [place], [place] [id number] Mckenzie EO # 0.0 103/ul Normal 0.0-0.7 [facility] Comment on above: Performed By: #### C BC ####[facility] [address] [place] [address]Dr. Magdalene Mckenzie Eosinophils/100 WBC (Bld) 0.2 % Critically low 0.9-7.0 [facility] Comment on above: Performed By: #### C BC ####[facility] [address] [place] [address]Dr. Magdalene Mckenzie Erythrocyte distribution width (RBC) [Ratio] 12.6 % Normal 11.0-15.0 [facility] Comment on above: Performed By: #### C BC ####[facility] [address] [place], [place] [address]Dr. Magdalene Mckenzie Hematocrit (Bld) [Volume fraction] 46.1 % Normal 42.0-54.0 [facility] Comment on above: Performed By: #### C BC ####[facility] [address] [place], [place] [address]Dr. Magdalene Mckenzie Hemoglobin (Bld) [Mass/Vol] 15.4 g/dL Normal 14.0-18.0 [facility] Comment on above: Performed By: #### C BC ####[facility] [address] [place], [place] [address]Dr. Magdalene Mckenzie IG # 0.06 10e3/ul Critically high 0.00-0.03 [facility] Comment on above: Performed By: #### C BC ####[facility] [address] [place] [address]Dr. Magdalene Mckenzie IG % 0.6 % Critically high 0.0-0.5 [facility] Comment on above: Performed By: #### C BC ####[facility] [address] [place], [place] [address]Dr. Magdalene Mckenzie LYMPH # 1.2 103/ul Normal 1.2-3.8 [facility] Comment on above: Performed By: #### C BC ####[facility] [address] [place], [place] [address]Dr. Pratibhalakia Mckenzie Lymphocytes/100 WBC (Bld) 11.5 % Critically low 20.5-60.0 [facility] Comment on above: Performed By: #### C BC ####[facility] [address] [place] [address]Dr. Pratibhalakia Mckenzie MANUAL DIFF REQ NO Normal [facility] Comment on above: Performed By: #### C BC ####[facility] [address] [place] [address]Dr. Pratibhalakia Mckenzie MCH (RBC) [Entitic mass] 29.2 pg Normal 25.9-34.0 [facility] Comment on above: Performed By: #### C BC ####[facility] [address] [place] [address]Dr. Magdalene Jonah MCHC (RBC) [Mass/Vol] 33.4 g/dL Normal 29.9-35.2 [facility] Comment on above: Performed By: #### C BC ####[facility] [address] [place] [address]Dr. Magdalene Mckenzie MCV (RBC) [Entitic vol] 87.5 fL Normal 80.0-94.0 [facility] Comment on above: Performed By: #### C BC ####[facility] [address] [place] [address]Dr. Magdalene Mckenzie MONO # 0.7 103/ul Normal 0.3-0.8 [facility] Comment on above: Performed By: #### C BC ####[facility] [address] [place] [address]Dr. Magdalene Mckenzie Monocytes/100 WBC (Bld) 6.1 % Normal 1.7-12.0 [facility] Comment on above: Performed By: #### C BC ####[facility] [address] [place] [address]Dr. Magdalene Mckenzie NEUT # 8.7 103/ul Critically high 1.4-6.5 [facility] Comment on above: Performed By: #### C BC ####[facility] [address] [place] [address]Dr. Magdalene Mckenzie Neutrophils/100 WBC (Bld) 81.1 % Critically high 43.0-75.0 [facility] Comment on above: Performed By: #### C BC ####[facility] [address] [place] [id number]. Magdalene Mckenzie Platelet mean volume (Bld) [Entitic vol] 9.1 fL Critically low 9.5-13.5 [facility] Comment on above: Performed By: #### C BC ####[facility] [address] [place] [id number]. Magdalene Mckenzie PLT 215 103/ul Normal 150-450 [facility] Comment on above: Performed By: #### C BC ####[facility] [address] [place] [address]Dr. Magdalene Mckenzie RBC 5.27 106/ul Normal 4.70-6.10 [facility] Comment on above: Performed By: #### C BC ####[facility] [address] [place] [id number]. Magdalene Mckenzie WBC 10.7 103/ul Normal 4.0-11.0 [facility] Comment on above: Performed By: #### C BC ####[facility] [address] [place] [id number]. Magdalene Mckenzie CT ABD/PELVIS WO CONon 03-19 [...] WINNIE CUNNINGHAM Date: 2022-03-19 19:03 Normal [facility] PROF 14(COMP METB)on 022 Albumin [Mass/Vol] 4.1 g/dL Normal 3.4-5.0 [facility] Comment on above: Performed By: #### C MP ####[facility] [address] [place] [address]Dr. Magdalene Mckenzie Albumin/Globulin [Mass ratio] 1.4 {ratio} Normal [facility] Comment on above: Performed By: #### C MP ####[facility] [address] [place] [address]Dr. Magdalene Mckenzie ALP [Catalytic activity/Vol] 101 U/L Normal 46-116 [facility] Comment on above: Performed By: #### C MP ####[facility] [address] [place] [address]Dr. Magdalene Mckenzie ALT [Catalytic activity/Vol] 36 U/L Normal 16-63 [facility] Comment on above: Performed By: #### C MP ####[facility] [address] [place] [address]Dr. Magdalene Mckenzie Anion gap [Moles/Vol] 11.5 mmol/L Normal [facility] Comment on above: Performed By: #### C MP ####[facility] [address] [place] [address]Dr. Magdalene Mckenzie AST [Catalytic activity/Vol] 14 U/L Critically low 15-37 [facility] Comment on above: Performed By: #### C MP ####[facility] [address] [place] [address]Dr. Magdalene Mckenzie Bilirubin [Mass/Vol] 0.3 mg/dL Normal 0.2-1.0 [facility] Comment on above: Performed By: #### C MP ####[facility] [address] [place] [address]Dr. Magdalene Mckenzie Calcium [Mass/Vol] 9.0 mg/dL Normal 8.5-10.1 [facility] Comment on above: Performed By: #### C MP ####[facility] [address] [place] [address]Dr. Magdalene Mckenzie Chloride [Moles/Vol] 104 mmol/L Normal 98-107 [facility] Comment on above: Performed By: #### C MP ####[facility] [address] [place] [id number]. Magdalene Mckenzie CO2 [Moles/Vol] 25.8 mmol/L Normal 21.0-32.0 [facility] Comment on above: Performed By: #### C MP ####[facility] [address] [place] [address]Dr. Magdalene Mckenzie Creatinine [Mass/Vol] 1.27 mg/dL Normal 0.70-1.30 [facility] Comment on above: Performed By: #### C MP ####[facility] [address] [place] [address]Dr. Magdalene Mckenzie EGFR-AF MAURITANIAN >60 Normal >=60 [facility] Comment on above: Performed By: #### C MP ####[facility] [address] [place] [address]Dr. Magdalene Jonah EGFR-NON AF MAURITANIAN 57 mL/min/1.73m2 Critically low >=60 [facility] Comment on above: Performed By: #### C MP ####[facility] [address] [place] [address]Dr. Magdalene Mckenzie Globulin (S) [Mass/Vol] 3.0 g/dL Normal [facility] Comment on above: Performed By: #### C MP ####[facility] [address] [place] [id number]. Magdalene Jonah Glucose [Mass/Vol] 258 mg/dL Critically high 74-106 [facility] Comment on above: Performed By: #### C MP ####[facility] [address] [place] [address]Dr. Pratibhalakia Jonah Potassium [Moles/Vol] 4.3 mmol/L Normal 3.5-5.1 [facility] Comment on above: Performed By: #### C MP ####[facility] [address] [place], [place] [address]ZhJakub Mckenzie Protein [Mass/Vol] 7.1 g/dL Normal 6.4-8.2 [facility] Comment on above: Performed By: #### C MP ####[facility] [address] [place], [place] [address]XtJakub Mckenzie Sodium [Moles/Vol] 137 mmol/L Normal 136-145 [facility] Comment on above: Performed By: #### C MP ####[facility] Typ[address] [place], [place] [address]Oz. Magdalene Mckenzie Urea nitrogen [Mass/Vol] 20.0 mg/dL Critically high 7.0-18.0 [facility] Comment on above: Performed By: #### C MP ####[facility] [address] [place] [id number]. Magdalene Mckenzie Urea nitrogen/Creatinine [Mass ratio] 15.7 mg/mg Normal [facility] Comment on above: Performed By: #### C MP ####[facility] [address] [place], [place] [address]FxDr. Magdalene Mckenzie XR CHEST 1 Von 03-19-2022 [...] SONALI TOMAS Date: 2022-03-19 18:49 Normal [facility] CARDIAC SYMONE ADMITon 022 CK [Catalytic activity/Vol] 128 U/L Normal 55-170 [facility] Comment on above: Performed By: #### C MADM, CMP #### [facility] [address] [place], [place] [address] Dr. Magdalene Mckenzie CK.MB [Mass/Vol] 1.28 ng/mL Normal <=2.37 [facility] Comment on above: Performed By: #### C DIRK, CMP #### [facility] [address] [place] [address] Dr. Magdalene Mckenzie HSTROP 9.1 pg/mL Normal 4.0-42.2 [facility] Comment on above: Result Comment: CUT- OFF POINTS HAVE BEEN ESTABLISHED BASED ON THE FOURTH UNIVERSAL DEFINITIONS OF MYOCARDIAL INFARCTION. THE UPPER REFERENCE LIMIT (URL) OF TROPONIN, DEFINED THE 99TH PERCENTILE OF cTnI DISTRIBUTION IN A REFERENCE POPULATION, HAS BEEN CONFIRMED THE DECISION THRESHOLD FOR [place] DIAGNOSIS. Performed By: #### C DIRK, CMP #### [facility] [address] [place] [address] Dr. Magdalene Mckenzie CROW 66.0 ng/mL Normal <=121.0 [facility] Comment on above: Performed By: #### C DIRK, CMP #### [facility] [address] [place] [address] Dr. Magdalene Mckenzie CBC AUTO DIFFon 02-02-2022 BASO # 0.0 103/ul Normal 0.0-0.1 [facility] Comment on above: Performed By: #### C BC #### [facility] [address] [place] [address] Dr. Magdalene Mckenzie Basophils/100 WBC (Bld) 0.7 % Normal 0.2-2.0 [facility] Comment on above: Performed By: #### C BC #### [facility] [address] [place] [address] Dr. Magdalene Mckenzie EO # 0.1 103/ul Normal 0.0-0.7 [facility] Comment on above: Performed By: #### C BC #### [facility] [address] [place] [address] Dr. Magdalene Mckenzie Eosinophils/100 WBC (Bld) 2.4 % Normal 0.9-7.0 [facility] Comment on above: Performed By: #### C BC #### [facility] [address] [place] [address] Dr. Magdalene Mckenzie Erythrocyte distribution width (RBC) [Ratio] 13.4 % Normal 11.0-15.0 [facility] Comment on above: Performed By: #### C BC #### [facility] [address] [place] [address] Dr. Magdalene Mckenzie Hematocrit (Bld) [Volume fraction] 44.9 % Normal 42.0-54.0 [facility] Comment on above: Performed By: #### C BC #### [facility] [address] [place] [address] Dr. Magdalene Mckenzie Hemoglobin (Bld) [Mass/Vol] 14.8 g/dL Normal 14.0-18.0 [facility] Comment on above: Performed By: #### C BC #### [facility] [address] [place] [address] Dr. Magdalene Mckenzie IG # 0.05 10e3/ul Critically high 0.00-0.03 [facility] Comment on above: Performed By: #### C BC #### [facility] [address] [place] [address] Dr. Magdalene Mckenzie IG % 0.9 % Critically high 0.0-0.5 [facility] Comment on above: Performed By: #### C BC #### [facility] [address] [place] [address] Dr. Magdalene Mckenzie LYMPH # 1.4 103/ul Normal 1.2-3.8 [facility] Comment on above: Performed By: #### C BC #### [facility] [address] [place] [address] Dr. Magdalene cMkenzie Lymphocytes/100 WBC (Bld) 23.7 % Normal 20.5-60.0 [facility] Comment on above: Performed By: #### C BC #### [facility] [address] [place] [address] Dr. Magdalene Mckenzie MANUAL DIFF REQ NO Normal [facility] Comment on above: Performed By: #### C BC #### [facility] [address] [place] [address] Dr. Magdalene Mckenzie MCH (RBC) [Entitic mass] 29.3 pg Normal 25.9-34.0 [facility] Comment on above: Performed By: #### C BC #### [facility] [address] [place] [address] [address] Magdalene Mckenzie MCHC (RBC) [Mass/Vol] 33.0 g/dL Normal 29.9-35.2 [facility] Comment on above: Performed By: #### C BC #### [facility] [address] [address] [address] Magdalene Mckeznie MCV (RBC) [Entitic vol] 88.9 fL Normal 80.0-94.0 [facility] Comment on above: Performed By: #### C BC #### [facility] [address] [place] [address] Dr. Magdalene Mckenzie MONO # 0.5 103/ul Normal 0.3-0.8 [facility] Comment on above: Performed By: #### C BC #### [facility] [address] [place] [address] Dr. Magdalene Mckenzie Monocytes/100 WBC (Bld) 9.1 % Normal 1.7-12.0 [facility] Comment on above: Performed By: #### C BC #### [facility] [address] [place] [address] Dr. Magdalene Mckenzie NEUT # 3.7 103/ul Normal 1.4-6.5 [facility] Comment on above: Performed By: #### C BC #### [facility] [address] [place] [address] Dr. Magdalene Mckenzie Neutrophils/100 WBC (Bld) 63.2 % Normal 43.0-75.0 [facility] Comment on above: Performed By: #### C BC #### [facility] [address] [place] [address] Dr. Magdalene Mckenzie Platelet mean volume (Bld) [Entitic vol] 9.0 fL Critically low 9.5-13.5 [facility] Comment on above: Performed By: #### C BC #### [facility] [address] [place] [address] Dr. Magdalene Mckenzie PLT 214 103/ul Normal 150-450 [facility] Comment on above: Performed By: #### C BC #### [facility] [address] [place], [place] [address] Dr. Magdalene Mckenzie RBC 5.05 106/ul Normal 4.70-6.10 [facility] Comment on above: Performed By: #### C BC #### [facility] [address] [place], [place] [address] Dr. Magdalene Mckenzie WBC 5.8 103/ul Normal 4.0-11.0 [facility] Comment on above: Performed By: #### C BC #### [facility] [address] [place], [place] [address] Dr. Magdalene Mckenzie CTA CHEST WO W CONon 022 CTA CHEST WO W CON EXAMINATION: [...] BEN CAMACHO Date: 2022-02-02 09:21 Normal [facility] PROF 14(COMP METB)on 022 Albumin [Mass/Vol] 3.9 g/dL Normal 3.4-5.0 [facility] Comment on above: Performed By: #### C MADM, CMP #### [facility] [address] [place] [address] [address] Magdalene Mckenzie Albumin/Globulin [Mass ratio] 1.4 {ratio} Normal [facility] Comment on above: Performed By: #### C MADM, CMP #### [facility] [address] [place] [address] [address] Magdalene Mckenzie ALP [Catalytic activity/Vol] 80 U/L Normal 46-116 [facility] Comment on above: Performed By: #### C MADM, CMP #### [facility] [address] [place] [address] [address] Magdalene Mckenzie ALT [Catalytic activity/Vol] 28 U/L Normal 16-63 [facility] Comment on above: Performed By: #### C MADM, CMP #### [facility] [address] [place] [address] [address] Magdalene Mckenzie Anion gap [Moles/Vol] 9.8 mmol/L Normal [facility] Comment on above: Performed By: #### C MADM, CMP #### [facility] [address] [place] [address] [address] Magdalene Mckenzie AST [Catalytic activity/Vol] 16 U/L Normal 15-37 [facility] Comment on above: Performed By: #### C MADM, CMP #### [facility] [address] [place] [address] [address] Magdalene Mckenzie Bilirubin [Mass/Vol] 0.3 mg/dL Normal 0.2-1.3 [facility] Comment on above: Performed By: #### C MADM, CMP #### [facility] [address] [place] [address] [address] Magdalene Mckenzie Calcium [Mass/Vol] 8.6 mg/dL Normal 8.5-10.1 [facility] Comment on above: Performed By: #### C MADM, CMP #### [facility] [address] [place] [address] [address] Magdalene Mckenzie Chloride [Moles/Vol] 109 mmol/L Critically high 98-107 [facility] Comment on above: Performed By: #### C DIRK, CMP #### [facility] [address] [place] [address] Dr. Magdalene Mckenzie CO2 [Moles/Vol] 29.3 mmol/L Normal 22.0-30.0 [facility] Comment on above: Performed By: #### C KHADARM, CMP #### [facility] [address] [place] [address] Dr. Magdalene Mckenzie Creatinine [Mass/Vol] 1.59 mg/dL Critically high 0.66-1.25 [facility] Comment on above: Performed By: #### C DIRK, CMP #### [facility] [address] [place] [address] Dr. Magdalene Mckenzie EGFR-AF MAURITANIAN 54 mL/min/1.73m2 Critically low >=60 [facility] Comment on above: Performed By: #### C DIRK, CMP #### [facility] [address] [place] [address] Dr. Magdalene Mckenzie EGFR-NON AF MAURITANIAN 44 mL/min/1.73m2 Critically low >=60 [facility] Comment on above: Performed By: #### C DIRK, CMP #### [facility] [address] [place] [address] Dr. Magdalene Mckenzie Globulin (S) [Mass/Vol] 2.8 g/dL Normal [facility] Comment on above: Performed By: #### C DIRK, CMP #### [facility] [address] [place] [address] Dr. Magdalene Mckenzie Glucose [Mass/Vol] 132 mg/dL Critically high 74-106 [facility] Comment on above: Performed By: #### C DIRK, CMP #### [facility] [address] [place] [address] Dr. Magdalene Mckenzie Potassium [Moles/Vol] 4.1 mmol/L Normal 3.4-5.0 [facility] Comment on above: Performed By: #### C DIRK, CMP #### [facility] [address] [place] [address] Dr. Magdalene Mckenzie Protein [Mass/Vol] 6.7 g/dL Normal 6.1-8.2 [facility] Comment on above: Performed By: #### C DIRK, CMP #### [facility] [address] [place] [address] Dr. Magdalene Mckenzie Sodium [Moles/Vol] 144 mmol/L Normal 137-145 [facility] Comment on above: Performed By: #### C DIRK, CMP #### [facility] [address] [place] [address] Dr. Magdalene Mckenzie Urea nitrogen [Mass/Vol] 20.0 mg/dL Critically high 7.0-18.0 [facility] Comment on above: Performed By: #### C DIRK, CMP #### [facility] [address] [place] [address] Dr. Magdalene Mckenzie Urea nitrogen/Creatinine [Mass ratio] 12.6 mg/mg Normal [facility] Comment on above: Performed By: #### C DIRK, CMP #### [facility] [address] [place] [address] Dr. Magdalene Mckenzie PROTIMEon 02-02-2022 INR Coag (PPP) [Relative time] 1.00 {INR} Normal [facility] Comment on above: Performed By: #### P T, PTT #### [facility] [address] [place] [address] Dr. Magdalene Mckenzie INR GUIDELINES SEE BELOW Normal [facility] Comment on above: Result Comment: TERESE RED INR: 2.0 - 3.0 CONDITIONS NOT LISTED BELOW 2.5 - 3.5 FOR PROSTHETIC HEART VALVE REPLACEMENT 2.5 - 3.5 RECURRENT THROMBOSIS Performed By: #### P T, PTT #### [facility] [address] [place] [address] Dr. Magdalene Mckenzie PT Coag (PPP) [Time] 10.8 s Normal 9.0-11.6 [facility] Comment on above: Performed By: #### P T, PTT #### [facility] [address] [place] [address] Dr. Magdalene Mckenzie PTTon 02-02-2022 aPTT Coag (Bld) [Time] 28.5 s Normal 22.3-36.2 [facility] Comment on above: Performed By: #### P T, PTT #### [facility] [address] [place], [place] [address] Dr. Magdalene Mckenzie TROPONIN, HIGH SENSITIVITYon 02-02-2022 HSTROP 7.4 pg/mL Normal 4.0-42.2 [facility] Comment on above: Result Comment: CUT- OFF POINTS HAVE BEEN ESTABLISHED BASED ON THE FOURTH UNIVERSAL DEFINITIONS OF MYOCARDIAL INFARCTION. THE UPPER REFERENCE LIMIT (URL) OF TROPONIN, DEFINED THE 99TH PERCENTILE OF cTnI DISTRIBUTION IN A REFERENCE POPULATION, HAS BEEN CONFIRMED THE DECISION THRESHOLD FOR [place] DIAGNOSIS. Performed By: #### H STROPN ####[facility] [address] [place], [place] [address]OpDr. Magdalene Mckenzie XR CHEST 1 Von 02-02-2022 [...] BEN CAMACHO Date: 2022-02-02 08:59 Normal [facility] Tobacco Screening.on 022 Tobacco use status [facility] b) No -[facility] DO Work Phone: Danny 11-14-2019 ALT [Catalytic activity/Vol] 56 U/L High 10 - 52 [facility] Comment on above: Result Comment: Cheryl ents treated with Sulfasalazine may generate falsely decreased results for ALT. Performed By: #### A LT #### [facility] [address] [place] [address] Donna 11-14-2019 AST [Catalytic activity/Vol] 33 U/L Normal 9 - 39 [facility] Comment on above: Performed By: #### A ST #### [address] [address] CREATININEon 11-14-2019 Creatinine [Mass/Vol] 1.27 mg/dL Normal 0.50 - 1.30 [facility] Comment on above: Performed By: #### C REAT #### [address] [address] Creatinine [Mass/Vol] 58 mL/min/1.73m2 Abnormal >60 [facility] Comment on above: Performed By: #### C REAT #### [address] [address] Creatinine [Mass/Vol] 70 mL/min/1.73m2 Normal >60 [facility] Comment on above: Result Comment: CALC ULATIONS OF ESTIMATED GFR ARE PERFORMED USING THE MDRD STUDY EQUATION FOR THE IDMS-TRACEABLE CREATININE METHODS. CLIN CHEM 2007;53:766-72 Performed By: #### C REAT #### [address] [address] ELECTROLYTE PANELon 11-14-19 20 Anion gap [Moles/Vol] 11 mmol/L Normal 10 - 20 [facility] Comment on above: Performed By: #### E LECT #### [address] [address] Chloride [Moles/Vol] 104 mmol/L Normal 98 - 107 [facility] Comment on above: Performed By: #### E LECT #### [address] [address] HCO3 (Bld) [Moles/Vol] 29 mmol/L Normal 21 - 32 [facility] Comment on above: Performed By: #### E LECT #### [address] [address] Potassium [Moles/Vol] 4.7 mmol/L Normal 3.5 - 5.3 [facility] Comment on above: Performed By: #### E LECT #### [address] [place] [address] Sodium [Moles/Vol] 139 mmol/L Normal 136 - 145 [facility] Comment on above: Performed By: #### E LECT #### [address] [address] LIPID PANEL (CORONARY RISK 2 )on 11-14-2019 Cholesterol [Mass/Vol] 129 mg/dL Normal 0 - 199 [facility] Comment on above: Result Comment: . AGE [...] dosing. Performed By: #### L IPID #### [address] [address] Cholesterol in HDL [Mass/Vol] 26.0 mg/dL Abnormal [facility] Comment on above: Result Comment: . AGE VERY LOW LOW NORMAL HIGH 0-19 Y < 35 < 40 40-45 ---- 20-24 Y ---- < 40 >45 ---- >24 Y ---- < 40 40-60 >60 . Performed By: #### L IPID #### [address] [address] Cholesterol in LDL [Mass/Vol] 72 mg/dL Normal 0 - 99 [facility] Comment on above: Result Comment: . NEAR BORD AGE DESIRABLE OPTIMAL HIGH HIGH VERY HIGH 0-19 Y 0 - 109 --- 110-129 >/= 130 ---- 20-24 Y 0 - 119 --- 120-159 >/= 160 ---- >24 Y 0 - 99 100-129 130-159 160-189 >/=190 . Performed By: #### L IPID #### [address] [address] Cholesterol in VLDL [Mass/Vol] 31 mg/dL Normal 0 - 40 [facility] Comment on above: Performed By: #### L IPID #### [address] [address] Cholesterol.total/Cho lesterol in HDL [Mass ratio] 5.0 {ratio} Normal [facility] Comment on above: Result Comment: REF VALUES DESIRABLE < 3.4 HIGH RISK > 5.0 Performed By: #### L IPID #### [address] [address] Triglyceride [Mass/Vol] 156 mg/dL High 0 - 149 [facility] Comment on above: Result Comment: . AGE [...] dosing. Performed By: #### L IPID #### [address] [address] UREA NITROGENon 11-14-2019 Urea nitrogen [Mass/Vol] 15 mg/dL Normal 6 - 23 [facility] Comment on above: Performed By: #### U BARBARA #### [address] [address] HIP ARTHROGRAM RIGHTon 10-22 HIP ARTHROGRAM RIGHT [facility] Department of Radiology [address] [place] [id number] Patient Name: JANIS GAMING : 1960 Sex: M Age: Race: White Pt. Location: Patient Status: D Ordered Date: 09/23/2019 11:15:00 AM Completed Date: 10/22/2019 11:57 AM Requesting Provider: SABINA MCKENO Attending Provider: SABINA MCKEON Report Copy To: PAUL JARVIS Signs & Symptoms: M25.551 Pain in right hip I10 History: [place] MR Arthrogram Comments: , , , Ordering [...] bleeding. Electronically signed by:Tomasa Braga. Transcribed by: [email or web address], User Resident: Electronically Signed by: TOMASA BRAGA @ 10/22/2019 12:53 PM Normal [facility] Comment on above: Order Comment: , , = ========= , Ordering Provider - SABINA MCKEON MD , MRI HIP W CONTRAST RIGHTon 1 MRI HIP W CONTRAST RIGHT [facility] Department of Radiology [address] [place] [id number] Patient Name: JANIS GAMING : 1960 Sex: M Age: Race: White Pt. Location: Patient Status: D Ordered Date: 09/23/2019 11:15:00 AM Completed Date: 10/22/2019 12:58 PM Requesting Provider: SABINA MCKEON Attending Provider: SABINA MCKEON Report Copy To: PAUL JARVIS Signs & Symptoms: M25.551 Pain in right hip I10 History: Meka, PHONE:[phone],*N EEDS ORTHO F/U APPT. 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 Transcribed by: [email or web address], User Resident: Electronically Signed by: KIRAN QUICK @ 10/22/2019 01:40 PM Normal [facility] Comment on above: Order Comment: , , = ========= , Ordering Provider - SABINA MCKEON MD , HIP RIGHT 1 OR 2 VWS WITH PE LVISon 09-23-2019 HIP RIGHT 1 OR 2 VWS WITH PELVIS [facility] Department of Radiology [address] [place] [id number] Patient Name: JANIS GAMING : 1960 Sex: M Age: Race: White Pt. Location: 84 Patient Status: O Ordered Date: 09/23/2019 10:30:00 [...] setting. Electronically signed by:Rosanna Gomez. Transcribed by: [email or web address], User Resident: Electronically Signed by: ROSANNA GOMEZ @ 09/23/2019 10:52 AM Normal [facility] Comment on above: Order Comment: , , = ========= , Ordering Provider - SABINA MCKEON MD , ALT (SGPT)on 11-01-2018 ALT enzyme act/vol 29 U/L Normal 10- [facility] Comment on above: Performed By: #### 1 [id number] #### [facility] [address] [place] [id number] AST (SGOT)on 11-01-2018 AST enzyme act/vol 19 U/L Normal 13-39 [facility] Comment on above: Performed By: #### 1 [id number] #### [facility] [address] [place] [address] Creatinineon 11-01-2018 Creatinine mass conc 1.20 mg/dL Normal 0.50-1.30 [facility] Comment on above: Performed By: #### 1 [id number] #### [facility] [address] [place] [address] GFR/1.73 sq M.predicted MDRD vol rate/area mL/min/{1.73_m2} Normal [facility] Comment on above: Result Comment: Inte rpretation for Chronic Kidney Disease: Stages 1&2 >60 Healthy or potential kidney damage. Mild decrease of GFR. Stage 3 30-59 Moderate decrease of GFR. Stage 4 15-29 Severe decrease of GFR. Stage 5 <15 Kidney failure or on dialysis. Performed By: #### 1 [id number] #### [facility] [address] [place] [address] Electrolyte Panelon 11-01-19 19 Anion gap molar conc 8 mmol/L Low - [facility] Comment on above: Performed By: #### 1 [id number] #### [facility] [address] [place] [address] Chloride molar conc 104 mmol/L Normal 98-107 [facility] Comment on above: Performed By: #### 1 [id number] #### [facility] [address] [place] [address] HCO3 molar conc (Bld) 29 mmol/L Normal 21-32 [facility] Comment on above: Performed By: #### 1 [id number] #### [facility] [address] [place] [address] Potassium molar conc 4.5 mmol/L Normal 3.5-5.1 [facility] Comment on above: Performed By: #### 1 [id number] #### [facility] [address] [place] [address] Sodium molar conc 137 mmol/L Normal 136-145 [facility] Comment on above: Performed By: #### 1 [id number] #### [facility] [address] [place] [address] Lipid Panelon 11-01-2018 Cholesterol in HDL mass conc 25 mg/dL Abnormal [facility] Comment on above: Result Comment: Norm al Mod Risk High Risk 5-9 >48 42-48 <42 10-14 >45 40-45 <40 15-19 >38 34-38 <34 Adult >39 Performed By: #### 1 [id number] #### [facility] [address] [place] [address] Cholesterol in LDL mass conc 55 mg/dL Normal <130 [facility] Comment on above: Performed By: #### 1 [id number] #### [facility] [address] [place] [address] Cholesterol in VLDL mass conc 29 mg/dL Normal <30 [facility] Comment on above: Performed By: #### 1 [id number] #### [facility] [address] [place] [address] Cholesterol mass conc 109 mg/dL Normal <200 [facility] Comment on above: Performed By: #### 1 [id number] #### [facility] [address] [place] [address] Cholesterol.total/Cho lesterol in HDL mass ratio 4.4 {ratio} Normal [facility] Comment on above: Performed By: #### 1 [id number] #### [facility] [address] [place] [address] Triglyceride mass conc 146 mg/dL Normal <150 [facility] Comment on above: Result Comment: 150- 199 Borderline High 200-499 High >500 Very High Performed By: #### 1 [id number] #### [facility] [address] [place] [address] Urea Nitrogenon 11-01-2018 Urea nitrogen mass conc 12 mg/dL Normal 6-23 [facility] Comment on above: Performed By: #### 1 [id number] #### [facility] [address] [place] [address] Vital Signs Date Time Vital Sign Value Performing Clinician Facility 11-12-2024 13:31-0500 Body height 177.8 cm Flavia Lowe PA Work Phone: [facility] 11-12-2024 13:31-0500 Body mass index (BMI) [Ratio] 34.58 kg/m2 Flavia Lowe PA Work Phone: [facility] 11-12-2024 13:31-0500 Body weight 109.32 kg Flavia Lowe PA Work Phone: [facility] 11-12-2024 13:31-0500 Diastolic blood pressure 88 mm[Hg] Flavia Lowe PA Work Phone: [facility] 11-12-2024 13:31-0500 Heart rate 65 /min Flavia Lowe PA Work Phone: [facility] 11-12-2024 13:31-0500 Respiratory rate 16 /min Flavia Lowe PA Work Phone: [facility] 11-12-2024 13:31-0500 SaO2% (BldA) [Mass fraction] 94 % Flavia Lowe PA Work Phone: [facility] 11-12-2024 13:31-0500 Systolic blood pressure 140 mm[Hg] Flavia Lowe PA Work Phone: [facility] 10-31-2024 15:02-0500 Body height 180.3 cm Reynold Flores DATA TECHNICIAN Work Phone: [facility] 10-31-2024 15:02-0500 Body mass index (BMI) [Ratio] 33.75 kg/m2 Reynold Flores DATA TECHNICIAN Work Phone: [facility] 10-31-2024 15:02-0500 Body temperature 97.11 [degF] Reynold Flores DATA TECHNICIAN Work Phone: [facility] 10-31-2024 15:02-0500 Body weight 109.77 kg Reynold Flores DATA TECHNICIAN Work Phone: [facility] 10-31-2024 15:02-0500 Diastolic blood pressure 66 mm[Hg] Reynold Flores DATA TECHNICIAN Work Phone: [facility] 10-31-2024 15:02-0500 Heart rate 72 /min Reynold Flores DATA TECHNICIAN Work Phone: [facility] 10-31-2024 15:02-0500 Respiratory rate 18 /min Reynold Flores DATA TECHNICIAN Work Phone: [facility] 10-31-2024 15:02-0500 SaO2% (BldA) [Mass fraction] 97 % Reynold Flores DATA TECHNICIAN Work Phone: [facility] 10-31-2024 15:02-0500 Systolic blood pressure 132 mm[Hg] Reynold Flores DATA TECHNICIAN Work Phone: [facility] 09-10-2024 10:58-0500 Body height 180.3 cm Abdi Ortiz MD Work Phone: [facility] 09-10-2024 10:58-0500 Body mass index (BMI) [Ratio] 34.73 kg/m2 Abdi Ortiz MD Work Phone: [facility] 09-10-2024 10:58-0500 Body weight 112.95 kg Abdi Ortiz MD Work Phone: [facility] 09-10-2024 10:58-0500 Diastolic blood pressure 64 mm[Hg] Abdi Ortiz MD Work Phone: [facility] 09-10-2024 10:58-0500 Heart rate 69 /min Abdi Ortiz MD Work Phone: [facility] 09-10-2024 10:58-0500 Respiratory rate 16 /min Abdi Ortiz MD Work Phone: [facility] 09-10-2024 10:58-0500 Systolic blood pressure 104 mm[Hg] Abdi Ortiz MD Work Phone: [facility] 08-20-2024 12:49-0400 Body height 180.3 cm Flavia Lowe PA Work Phone: [facility] 08-20-2024 12:49-0400 Body mass index (BMI) [Ratio] 33.61 kg/m2 Flavia Lowe PA Work Phone: [facility] 08-20-2024 12:49-0400 Body weight 109.32 kg Flavia Lowe PA Work Phone: [facility] 08-20-2024 12:49-0400 Diastolic blood pressure 82 mm[Hg] Flavia Lowe PA Work Phone: [facility] 08-20-2024 12:49-0400 Systolic blood pressure 124 mm[Hg] Flavia Lowe PA Work Phone: [facility] 02-07-2024 10:00-0400 Body height 180.3 cm Chang Barba DO Work Phone: [facility] 02-07-2024 10:00-0400 Body mass index (BMI) [Ratio] 32.36 kg/m2 Chang Barba DO Work Phone: [facility] 02-07-2024 10:00-0400 Body weight 105.23 kg Chang Barba DO Work Phone: [facility] 02-07-2024 10:00-0400 Diastolic blood pressure 68 mm[Hg] Chang Barba DO Work Phone: [facility] 02-07-2024 10:00-0400 Heart rate 60 /min Chang Barba DO Work Phone: [facility] 02-07-2024 10:00-0400 Systolic blood pressure 110 mm[Hg] Chang Barba DO Work Phone: [facility] 08-07-2023 12:00-0400 Body height 177.8 cm Dary Faith Other [employer] Other 08-07-2023 12:00-0400 Body mass index (BMI) [Ratio] 33.97 kg/m2 Dary Faith Other [facility] Other 08-07-2023 12:00-0400 Body temperature 97.1 [degF] Dary Faith Other [facility] Other 08-07-2023 12:00-0400 Body weight 107.41 kg Dary Faith Other [facility] Other 08-07-2023 12:00-0400 Diastolic blood pressure 73 mm[Hg] Dary Ceuvas Other [facility] Other 08-07-2023 12:00-0400 Respiratory rate 18 /min Dary Faith Other [facility] Other 08-07-2023 12:00-0400 SaO2% (BldA) [Mass fraction] 96 % Dary Cuevas Other [facility] Other 08-07-2023 12:00-0400 Systolic blood pressure 107 mm[Hg] Dary Cuevas Other [employer] Other 02-14-2023 10:09-0400 Body height 177.8 cm Paul P House Work Phone: [facility] [address] DO Work Phone: 02-14-2023 10:09-0400 Body mass index (BMI) [Ratio] 35.15 kg/m2 Paul P House Work Phone: [facility] [address] DO Work Phone: 02-14-2023 10:09-0400 Body surface area Derived from formula 2.28 m2 Paul P House Work Phone: [facility] [address] DO Work Phone: 02-14-2023 10:09-0400 Body weight 111.13 kg Paul P House Work Phone: [facility] [address] DO Work Phone: 02-14-2023 10:09-0400 Diastolic blood pressure 74 mm[Hg] Paul P House Work Phone: [facility] DO Work Phone: 02-14-2023 10:09-0400 Heart rate 66 /min Paul P Clinc! Work Phone: [facility] DO Work Phone: 02-14-2023 10:09-0400 Systolic blood pressure 110 mm[Hg] Paul P [employer] Work Phone: [facility] [address] DO Work Phone: 09-22-2022 15:14-0500 Body height 177.8 cm Katty Jean Baptiste MD Work Phone: [facility] 09-22-2022 15:14-0500 Body weight 110.59 kg Katty Jean Baptiste MD Work Phone: [facility] 11-17-2021 11:54-0500 Diastolic blood pressure 74 mm[Hg] Paul Carey House Work Phone: [facility] [address] DO Work Phone: 11-17-2021 11:54-0500 Systolic blood pressure 138 mm[Hg] Paul P House Work Phone: [facility] DO Work Phone: 11-17-2021 11:49-0500 Body height 177.8 cm Paul Carey House Work Phone: [facility] DO Work Phone: 11-17-2021 11:49-0500 Body mass index (BMI) [Ratio] 36.02 kg/m2 Paul P [employer] Work Phone: [facility] DO Work Phone: 11-17-2021 11:49-0500 Body surface area Derived from formula 2.3 m2 Paul Carey [employer] Work Phone: [facility] DO Work Phone: 11-17-2021 11:49-0500 Body weight 113.85 kg Paul Carey [employer] Work Phone: [facility] DO Work Phone: 11-17-2021 11:49-0500 Diastolic blood pressure 90 mm[Hg] Paul Carey [employer] Work Phone: [facility] DO Work Phone: 11-17-2021 11:49-0500 Heart rate 82 /min Paul Carey [employer] Work Phone: [facility] DO Work Phone: 11-17-2021 11:49-0500 Systolic blood pressure 144 mm[Hg] Paul Carey [employer] Work Phone: [facility] DO Work Phone: Encounters Encounter Date Encounter Type Care Provider Facility Start: 11-22-2024 End: 11-22-2024 Clinisync Result Encounter Generic External Data Provider [facility] External Department Unsolicited Start: 11-22-2024 End: 11-22-2024 Clinisync Result Encounter Generic External Data Provider [facility] External Department Unsolicited Start: 11-19-2024 ambulatory FLAVIA FRAUSTO [facility] Start: 11-13-2024 End: 11-19-2024 Telephone encounter Flavia Frausto PA Work Phone: [facility] Start: 11-12-2024 End: 11-12-2024 Bamboo flowsheet Flavia Frausto PA Work Phone: [facility] Start: 11-12-2024 End: 11-12-2024 Bamboo flowsheet Flavia Frausto PA Work Phone: [facility] Start: 11-12-2024 End: 11-12-2024 Office outpatient visit 25 minutes Flavia Frausto PA Work Phone: [facility] Comment on above: Essential tremor (Pr imary Dx); Dizziness Start: 11-12-2024 End: 11-12-2024 ambulatory FLAVIA FRAUSTO Not Available Start: 11-11-2024 End: 11-11-2024 ambulatory Praveena Amado MD [facility] Start: 10-31-2024 End: 10-31-2024 Office outpatient visit 15 minutes Reynold Flores DATA TECHNICIAN Work Phone: [facility] Comment on above: Vertigo (Primary Dx) ; Degeneration of thoracic intervertebral disc; Thoracic spondylosis without myelopathy; Lumbosacral spondylosis without myelopathy Start: 10-31-2024 End: 10-31-2024 ambulatory REYNOLD FLORES Not Available Start: 10-31-2024 End: 10-31-2024 Bamboo flowsheet Reynold Reeveszpatrick DATA TECHNICIAN Work Phone: [facility] Start: 10-31-2024 End: 01-09-2025 Bamboo flowsheet Reynold Flores DATA TECHNICIAN Work Phone: [facility] Start: 10-31-2024 End: 10-31-2024 Telephone encounter Flavia CHIN Work Phone: [facility] Start: 09-18-2024 End: 09-18-2024 Telephone encounter Abdi Ortiz MD Work Phone: [facility] Start: 09-10-2024 End: 09-10-2024 Bamboo flowsheet Abdi Ortiz MD Work Phone: [facility] Start: 09-10-2024 End: 09-10-2024 Bamboo flowsheet Abdi Ortiz MD Work Phone: [facility] Start: 09-10-2024 End: 09-10-2024 Office outpatient visit 40 minutes Abdi Ortiz MD Work Phone: [facility] Comment on above: Type 2 diabetes dipika itus with hyperglycemia, with long-term current use of insulin (CMS/[facility]) (Primary Dx); Presence of insulin pump (external) (internal); Encounter for fitting and adjustment of insulin pump; healthcare management consultant (current) use of insulin (CMS/HCC); Vitamin D deficiency, unspecified; Mixed hyperlipidemia (CMS/HCC); Class 1 obesity due to excess calories with serious comorbidity and body mass index (BMI) of 34.0 to 34.9 in adult; Hypoglycemia Start: 09-10-2024 End: 09-10-2024 ambulatory ABDI ORTIZ Not Available Start: 08-20-2024 End: 08-20-2024 Office outpatient visit 15 minutes Flavia CHIN Work Phone: [facility] Comment on above: Essential tremor Start: 08-20-2024 End: 08-20-2024 ambulatory FLAVIA LOWE Not Available Start: 05-29-2024 End: 05-29-2024 ambulatory FLAVIA LOWE Not Available Start: 05-27-2024 End: 05-27-2024 ambulatory REYNOLD FLORES Not Available Start: 04-04-2024 End: 04-04-2024 ambulatory EDDIE BRAXTON Not Available Start: 04-02-2024 End: 04-02-2024 ambulatory BEN BROWN Not Available Start: 03-04-2024 Patient encounter procedure Flavia CHIN Work Phone: [facility] Start: 03-04-2024 End: 03-04-2024 ambulatory SHAIKH HOLA Not Available Start: 02-07-2024 End: 02-07-2024 ambulatory [facility] Ambulatory Start: 02-07-2024 End: 02-07-2024 Office outpatient visit 15 minutes Chang Aidan Jameson DO Work Phone: [facility] Comment on above: Two-vessel coronary artery disease; Ischemic cardiomyopathy; History of [place] (myocardial infarction); History of PTCA; Mixed hyperlipidemia; Essential hypertension; Type 2 diabetes mellitus without complication, with long-term current use of insulin (Multi); BMI 32.0-32.9,adult Start: 01-03-2024 End: 01-03-2024 ambulatory HOLLOWAY HOLA Not Available Start: 08-07-2023 End: 08-07-2023 ambulatory Dary Cuevas Other [employer] Other Start: 08-07-2023 Office outpatient vi sit 15 minutes Dary Cuevas [facility] Start: 02-14-2023 ambulatory [facility] Facilit y: Start: 02-14-2023 Office outpatient vi sit 15 minutes Paul Jarvis Work Phone: [facility] 250 DO Work Phone: Start: 12-31-2022 End: 12-31-2022 ambulatory SHAIKH Clara SIMENTAL Facility: Start: 11-29-2022 Telephone encounter Paul Jarvis Work Phone: [facility] 250 DO Work Phone: Start: 11-08-2022 Rx Renewal Paul miller Work Phone: [facility] 250 DO Work Phone: Start: 09-28-2022 End: 09-29-2022 ambulatory HOLLOWAY H FAWWAD Facility:H1 Start: 09-22-2022 End: 09-22-2022 ambulatory KATTY JEAN BAPTISTE Facility:[facility] Start: 09-22-2022 End: 09-22-2022 Patient encounter procedure Katty Jean Baptiste MD Work Phone: Pain Management Comment on above: Thoracic radiculitis (Primary Dx); Degeneration of thoracic intervertebral disc; Costochondral pain; Diabetes 1.5, managed as type 1 ([facility]) Start: 08-25-2022 End: 08-25-2022 ambulatory KATTY JEAN BAPTISTE Facility:[facility] Start: 08-24-2022 End: 08-24-2022 ambulatory HOLLOWAY H FAWWAD Facility:H1 Start: 08-01-2022 Rx Renewal Paul miller Work Phone: [facility] 250 DO Work Phone: Start: [...] FAWWAD Facility:H1 Start: 02-02-2022 End: 02-02-2022 ambulatory HOLLOWAY H FAWWAD Facility:H1 Start: 01-14-2022 End: 01-15-2022 ambulatory HOLLOWAY H FAWWAD Facility:H1 Start: 11-17-2021 FUV, Provider: Chang Barba, Status: Chay, Time: 11:00 AM Paul Jarvis Work Phone: [facility] 250 DO Work Phone: Start: 11-17-2021 Office outpatient vi sit 15 minutes Paul Carey Clinc! Work Phone: [facility] 250 DO Work Phone: Start: 11-15-2021 Rx Renewal Paul P Hous e Work Phone: [facility] 250 DO Work Phone: Start: 08-10-2021 Rx Renewal Paul P Hous e Work Phone: [facility] 250A [place] Work Phone: Start: 08-09-2021 Rx Renewal Paul P Hous e Work Phone: [facility] 250 DO Work Phone: Start: 11-01-2018 Patient encounter procedure PROVIDER UNKNOWN Facility:[id number] Procedures Date Procedure Procedure Detail Performing Clinician Start: 11-22-2024 Radex spine thoracic 2 views Generic External Data Provider Start: 11-22-2024 XR LUMBAR SPINE MIN 4V Generic External Data Provider Start: 11-22-2024 Ct lumbar spine w/o contrast material Generic External Data Provider Start: 09-10-2024 Gluc bld gluc mntr d ev cleared fda spec home use Abdi Ortiz MD Work Phone: Start: 02-07-2024 Lipid panel CHANG MARSHALL Start: 08-03-2023 History of percutane ous transluminal coronary angioplasty History of PTCA Chang Barba DO Work Phone: Start: 11-19-2020 Lipid 1996 panel - S tyler or Plasma Chang Barba DO Work Phone: Appendectomy Paul Carey Clinc! Work Phone: History of percutane ous transluminal coronary angioplasty History of PTCA Paul Carey Clinc! Work Phone: History of percutane ous transluminal coronary angioplasty History of PTCA Chang Barba DO Work Phone: Procedure on back Paul Jarvis Work Phone: Surgical procedure Paul Jarvis Work Phone: Comment on above: Stent Indications; NEGATED: Highlighted row has not occurred! Total colonoscopy Paul Jarvis Work Phone: Plan of Treatment Date Care Activity Detail Author Start: 01-02-2026 Glaucoma screening Diabetes: R etinopathy Screening [facility] Start: 03-04-2025 Medicare Annual Wellness (AWV) Medicare Annual Wellness (AWV) [facility] Start: 02-06-2025 End: 02-06-2025 Patient encounter procedure 02/06/2025 9:30 AM EDT Office Visit [facility] [address] [place] [phone] Chang Barba DO [address] [place] [address] [facility] Start: 01-30-2025 End: 01-30-2025 Patient encounter procedure 01/30/2025 11:00 AM EDT Office Visit [facility] [address] [place] [phone] Reynold Flores NP [address] [place] [address] [facility] Start: 01-06-2025 End: 01-06-2025 Patient encounter procedure 01/06/2025 1:20 PM EDT Office Visit [facility] [address] [place] [address] Flavia Frausto PA [address] [place], [place] [id number] [facility] Start: 12-21-2024 Screening for malign ant neoplasm of colon [facility] Start: 12-11-2024 Hemoglobin A1c measurement Diabetes: Hemoglobin A1C [facility] Start: 12-10-2024 End: 12-10-2024 Patient encounter procedure 12/10/2024 10:50 AM EST Office Visit [facility] [address] [place] [phone] Abdi Ortiz MD [address] [place] [address] [facility] Start: 12-09-2024 End: 02-06-2025 Lipid 1996 panel - Serum or Plasma Lipid Panel Lab Routine Two-vessel coronary artery disease Mixed hyperlipidemia Expected: 12/09/2024 (Approximate), Expires: 02/06/2025 [facility] Work Phone: Comment on above: Expected: 12/09/2024 (Approximate), Expires: 02/06/2025 Start: 11-12-2024 End: 11-12-2024 Patient encounter procedure [facility] Comment on above: Arrived Start: 10-31-2024 End: 10-31-2024 Patient encounter procedure 10/31/2024 3:00 PM EST Office Visit [facility] [address] [place] [phone] Reynold Flores NP [address] [place] [phone] Arrived [facility] Comment on above: Arrived Start: 09-11-2024 End: 09-11-2024 Patient encounter procedure 09/11/2024 10:00 AM EST Office Visit [facility] [address] [place] [phone] Reynold Flores NP [address] [place] [phone] [facility] Start: 09-10-2024 End: 09-10-2024 Patient encounter procedure [facility] Comment on above: Type 2 diabetes dipika itus with hyperglycemia, with long-term current use of insulin ([facility]) Start: 06-23-2024 Influenza vaccination [facility] Start: 02-07-2024 FUV, Provider: Chang Barba, Status: Pen, Time: 9:50 AM FUV, Provider: Chang Barba, Status: Pen, Time: 9:50 AM [facility] 250 DO Work Phone: Start: 06-23-2023 COVID-19 Vaccine ( season) COVID-19 Vaccine ( season) [facility] Start: 02-14-2023 FUV, Provider: Chang Barba, Status: Pen, Time: 10:00 AM FUV, Provider: Chang Barba, Status: Pen, Time: 10:00 AM [facility] 250 DO Work Phone: Start: 11-16-2022 FUV, Provider: Chagn Barba, Status: Pen, Time: 11:00 AM FUV, Provider: Chang Barba, Status: Pen, Time: 11:00 AM [facility] 250 DO Work Phone: Start: 06-23-2022 Influenza vaccination INFLUENZA (#1) [facility] Start: 11-26-2021 COVID-19 VACCINE (4 - Booster for Pfizer series) COVID-19 VACCINE (4 - Booster for Pfizer series) [facility] Start: 11-19-2021 Lipid panel Lipid Panel [facility] Start: 11-17-2021 FUV, Provider: Chang Barba, Status: Pen, Time: 11:00 AM FUV, Provider: Chang Barba, Status: Pen, Time: 11:00 AM [facility] 250 DO Work Phone: Start: 10-23-2021 DEPRESSION ASSESSMENT DEPRESSION ASS ESSMENT [facility] Start: 09-20-2021 COVID-19 VACCINE (4 - Booster for Pfizer series) COVID-19 VACCINE (4 - Booster for Pfizer series) [facility] Start: 07-26-2017 Pneumococcal Vaccine : 65+ Years (2 of 2 - PCV) Pneumococcal Vaccine: 65+ Years (2 of 2 - PCV) [facility] Start: 07-26-2017 Pneumococcal Vaccine : Pediatrics (0 to 5 Years) and At-Risk Patients (6 to 64 Years) (2 of 2 - PCV) Pneumococcal Vaccine: Pediatrics (0 to 5 Years) and At-Risk Patients (6 to 64 Years) (2 of 2 - PCV) [facility] Start: 2014 PROSTATE CANCER SCREENING DISCUSSION PROSTATE CANCER SCREENING DISCUSSION [facility] Start: 2009 SHINGRIX VACCINE (1 of 2) SHINGRIX VACCINE (1 of 2) [facility] Start: 2009 Zoster Vaccines (1 o f 2) Zoster Vaccines (1 of 2) [facility] Start: 2004 COLOGUARD (FIT-DNA) COLOGUARD (FIT-D NA) [facility] Start: 2004 Colonoscopy COLONOSCOPY [facility] Start: 2004 COLORECTAL CANCER SCREENING COLORECTAL CANCER SCREENING [facility] Start: [address] COLONOGRAPHY [facility] Start: 2004 DIABETES SCREEN DIABETES SCREEN [facility] Start: 2004 FECAL OCCULT BLOOD FECAL OCCULT BLOO D [facility] Start: 2004 SIGMOIDOSCOPY SIGMOIDOSCOPY [facility] Start: 1994 LIPID SCREEN LIPID SCREEN [facility] Start: 1981 DTaP/Tdap/Td Vaccine s (1 - Tdap) DTaP/Tdap/Td Vaccines (1 - Tdap) [facility] Start: 1978 Urine microalbumin profile DTAP,TDAP,TD (1 - Tdap) [facility] Start: 1978 Urine screening for protein Diabetes: Urine Protein Screening [facility] Start: 1977 ANNUAL PCP TEAM PROCESSING SPEC [place] DISEASE VISIT ANNUAL PCP TEAM CHRONIC DISEASE VISIT [facility] Start: 1977 Hepatitis B surface antibody level LDL CHOLESTEROL [facility] Start: 1977 HEPATITIS C SCREENING HEPATITIS C [facility] Start: 1977 Hepatitis C screening Hepatitis C [facility] Start: 1977 HIV SCREENING HIV SCREENING [facility] Start: 1971 Adult depression screening assessment DEPRESSION SCREENING [facility] Start: 1969 3 comp foot exam completed DIABETIC FOOT EXAM [facility] Start: 1969 Diabetic foot examination Diabetes: Foot Exam [facility] Start: 1969 Glaucoma screening Diabetes: R etinopathy Screening [facility] Start: 1969 Hepatitis B screening URINE ALBUMIN:CREATININE RATIO [facility] Start: 1969 Hepatitis C antibody , confirmatory test DILATED RETINAL EXAM [facility] Start: 1965 PNEUMOCOCCAL (1 - PCV) PNEUMOCOCCAL (1 - PCV) [facility] Start: 1964 Hemoglobin A1c/Hemoglobin.total in Blood HBA1C [facility] Start: 1960 MMR Vaccines (1 of 1 - Standard series) MMR Vaccines (1 of 1 - Standard series) [facility] Start: 1959 Hemoglobin A1c measurement Diabetes: Hemoglobin A1C [facility] Start: 1959 HIV screening HIV Screening [facility] Start: 1959 Medicare Annual Wellness Visit Medicare Annual Wellness Visit (AWV) [facility] Start: 1959 Screening for malign ant neoplasm of colon [facility] Immunizations Immunization Date Immunization Notes Care Provider Fa hernan 07-26-2021 Pfizer-BioNTech COVI D-19 Vacc 30 MCG/0.3ML Intramuscular Suspension Paul [employer] Work Phone: [facility] 250 DO Work Phone: 01-21-2021 Pfizer-BioNTech COVI D-19 Vacc 30 MCG/0.3ML Intramuscular Suspension Paul Clinc! Work Phone: [facility] 250 DO Work Phone: 12-31-2020 Pfizer-BioNTech COVI D-19 Vacc 30 MCG/0.3ML Intramuscular Suspension [facility] Work Phone: [facility] 250 DO Work Phone: 08-23-2019 influenza virus vacc ine, unspecified formulation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
--- NOTE | 2024-12-06 23:47 | ED_ITS ---
HPI HPI - General Adult General Chief complaint: Fever Stated complaint: Upper Respiratory Infection Time Seen by Provider: 12/06/24 23:40 Source: patient Mode of arrival: walk-in Limitations: no limitations History of Present Illness HPI narrative: Patient presents with an illness starting yesterday with chills, feverishness, body aches, cough and congestion. He has had a negative home COVID test today. He is diabetic. Related Data Home Medications ?Medication ?Instructions ?Recorded ?Confirmed aspirin 81 mg tablet,delayed mg 11/11/24 release atorvastatin 20 mg tablet 40 mg PO BID 11/11/24 11/11/24 insulin aspart 3 unit subcut TID 11/11/24 11/11/24 (niacinamide)(U-100) 100 unit/mL(3 mL) subcutaneous pen (Fiasp FlexTouch U-100 Insulin) nitroglycerin PO 11/11/24 propranolol 20 mg tablet 20 mg PO TID 11/11/24 11/11/24 semaglutide 0.25 mg or 0.5 mg (2 0.5 mg subcut QWEEK 11/11/24 11/11/24 mg/1.5 mL) subcutaneous pen injector (Ozempic) spironolactone 25 mg tablet 25 mg PO BID 11/11/24 11/11/24 Previous Rx's ?Medication ?Instructions ?Recorded benzonatate 200 mg capsule 200 mg PO TID PRN cough #30 caps 12/07/24 Allergies Allergy/AdvReac Type Severity Reaction Status Date / Time bisacodyl (From Dulcolax Allergy Intermediate Verified 05/25/23 17:12 (bisacodyl)) metformin Allergy Intermediate Verified 05/25/23 17:12 Opioid HPI Opioid Management Most Recent Opioid Data: Last Pain Scale 8 05/25/23 18:58 05/25/23 Last MAR Pain Assessment 12/07/24 00:06 Review of Systems ROS Status of ROS 10 or more systems reviewed and unremark able except as noted in history and below [facility] Medical History Wears dentures ?Z97.2 - Presence of dental prosthetic device (complete) (partial) (ICD-10) Obesity (BMI 35.0-39.9 without comorbidity) ?E66.9 - Obesity, unspecified (ICD-10) Diabetes ?E11.9 - Type 2 diabetes mellitus without complications (ICD-10) History of heart attack ?I25.2 - Old myocardial infarction (ICD-10) Surgical History S/P insertion of spinal cord stimulator ?Z96.89 - Presence of other specified functional implants (ICD-10) S/P carpal tunnel release ?Z98.890 - Other specified postprocedural states (ICD-10) History of appendectomy ?Z90.49 - Acquired absence of other specified parts of digestive tract (ICD- 10) S/P lumbar and lumbosacral fusion by anterior technique ?Z98.1 - Arthrodesis status (ICD-10) Social History Little interest or pleasure in doing things: not at all Feeling down, depressed, or hopeless: not at all Exam Narrative Exam Narrative: Patient appears in mild discomfort but is nontoxic in appearance. Vital signs significant for temperature elevation of 102.7. HEENT exam is normal to inspection. Neck is supple. Lung sounds are grossly clear to auscultation bilaterally. Heart has regular rate and rhythm. Abdomen is protuberant, soft nontender. There is no facial asymmetry. Speech and mentation are clear and intact. He moves all extremities actively. Constitutional Vital Signs, click to edit/add: Last Vital Signs Temp 102.7 F H 12/07/24 00:06 Pulse 92 H 12/06/24 23:39 Resp 16 12/06/24 23:39 BP 134/68 12/06/24 23:39 Pulse Ox 92 L 12/06/24 23:39 O2 Del Method Room Air 12/06/24 23:39 Course Vital Signs Vital signs: Vital Signs Temperature 102.7 F H 12/06/24 23:39 Pulse Rate 92 H 12/06/24 23:39 Respiratory Rate 16 12/06/24 23:39 Blood Pressure 134/68 12/06/24 23:39 Pulse Oximetry 92 L 12/06/24 23:39 Oxygen Delivery Method Room Air 12/06/24 23:39 Temperature 102.7 F H 12/07/24 00:06 Pulse Rate 92 H 12/06/24 23:39 Respiratory Rate 16 12/06/24 23:39 Blood Pressure 134/68 12/06/24 23:39 Pulse Oximetry 92 L 12/06/24 23:39 Oxygen Delivery Method Room Air 12/06/24 23:39 Medical Decision Making MDM Narrative Medical decision making narrative: Patient presents with fever, body aches, cough and congestion and has tested positive for influenza A. He is discharged with supportive care advised. He does not appear toxic. Lab Data Labs: Lab Results 12/06/24 Range/Units 23:50 Influenza Type A Ag Positive A Influenza Type B Ag Negative Discharge Plan Discharge Chief Complaint: Fever Clinical Impression: Influenza A Patient Disposition: Home, Self-Care Time of Disposition Decision: 00:17 Condition: Good Mode of Transportation: Private Vehicle Prescriptions / Home Meds: New benzonatate 200 mg capsule 200 mg PO TID PRN (Reason: cough) Qty: 30 0RF No Action aspirin 81 mg tablet,delayed release (DR/EC) Ozempic 0.25 mg or 0.5 mg(2 mg/1.5 mL) pen injector 0.5 mg subcut QWEEK Rx Instructions: for 4 weeks atorvastatin 20 mg tablet 40 mg PO BID Fiasp FlexTouch U-100 Insulin 100 unit/mL (3 mL) insulin pen 3 unit subcut TID nitroglycerin PO propranolol 20 mg tablet 20 mg PO TID spironolactone 25 mg tablet 25 mg PO BID Print Language: Indian Instructions: Influenza (ED) Additional Instructions: Tylenol, ibuprofen for fever or bodyaches as needed. Drink extra fluids. Follow-up in 3 to 4 days if not much better. Return for worsening symptoms. Referrals: REYNOLD JOHANSEN [Primary Care Provider] - 1 week
[2024-12-07 00:06] VITALS: TEMP 39.3
[2024-12-07] MEDS: IBUPROFEN 600 MG TABLET PO (00:06)
[2024-12-07 00:08] LABS: Influenza Virus A Antigen Positive; Influenza Virus B Antigen Negative; Internal Control Within Normal Limits
== END 2024-12-07 00:33 | disposition home or self-care (01) ==
PROVIDERS: Emergency Provider Emergency Medicine
DX: J10.1 Influenza due to other identified influenza virus with other respiratory manifestations (principal); R50.9 Fever, unspecified; E11.9 Type 2 diabetes mellitus without complications; Z79.84 Long term (current) use of oral hypoglycemic drugs; Z79.85 Long-term (current) use of injectable non-insulin antidiabetic drugs; Z98.1 Arthrodesis status; Z96.89 Presence of other specified functional implants; Z90.49 Acquired absence of other specified parts of digestive tract
CPT/HCPCS: 87804; 99283

== ENCOUNTER 2025-01-31 14:00 | Outpatient (OUT) | payer OTHER, SELFPAY ==
[2025-01-31 14:29] LABS: Chol HDL Ratio 3.6; Cholesterol 103 mg/dL (<=200); HDL Cholesterol 29 mg/dL (40-60); Triglycerides 118 mg/dL (<=150); VLDL CHOLESTEROL 23.6 mg/dL
== END 2025-01-31 14:01 | disposition home or self-care (01) ==
LOC: LAB 14:01
PROVIDERS: Visit Provider Internal Medicine Cardiovascular Disease
DX: E78.2 Mixed hyperlipidemia (principal); I25.10 Atherosclerotic heart disease of native coronary artery without angina pectoris
CPT/HCPCS: 36415; 80061

== ENCOUNTER 2025-05-29 11:06 | Outpatient (OUT) | payer OTHER, SELFPAY ==
--- OUTSIDE RECORDS SUMMARY | 2025-05-29 11:15 | XMS_ITS | Clinical Summary ---
Author Organization [facility] Address [address] [place] [address] Phone Care Team Providers Care Professor Of Medicine Name Role Phone Shaikh EMIL Simental Primary Care Provider Chang Barba DO Unavailable [phone] Allergies Active Allergy Reactions Criticality Noted Date Comments Prieto Inhibitors Cough 08/03/2023 Diclofenac Unknown 08/03/2023 Lisinopril Cough 08/03/2023 Metformin Cough 08/03/2023 Thimerosal Unknown 08/03/2023 Medications aspirin 81 mg EC tablet Take 1 tablet (81 mg) by mouth once daily. 2 Active insulin aspart (NovoLOG U-100 Insulin aspart) 100 unit/mL injection Inject under the skin. 2 Active insulin pump cart,cont inf,BT (Omnipod Dash Pods, Gen 4,) cartridge Inject under the skin. Active semaglutide (Ozempic) 1 mg/dose (2 mg/1.5 mL) pen injector Inject 0.5 mg under the skin 1 (one) time per week. Active nitroglycerin (Nitrostat) 0.4 mg SL tabletIndications:T wo-vessel coronary artery disease,History of PTCA Place 1 tablet (0.4 mg) under the tongue every 5 minutes if needed for chest pain. Place 1 tablet under the tongue every 5 minutes up to 3 doses as needed for chest pain. Call [phone] if pain persists 90 tablet 3 4 Active propranolol (Inderal) 20 mg tablet Take 1 tablet (20 mg) by mouth 2 times a day. Active spironolactone (Aldactone) 25 mg tabletIndications:T wo-vessel coronary artery disease,Ischemic cardiomyopathy Take 1 tablet (25 mg) by mouth once daily. 90 tablet 3 4 08/01/20 25 Active atorvastatin (Lipitor) 40 mg tabletIndications:M ixed hyperlipidemia Take 1 tablet (40 mg) by mouth once daily at bedtime. 90 tablet 3 5 Active Active Problems Problem Noted Date Diagnosed Date BMI 34.0-34.9,adult 02/07/2024 Diabetes mellitus (Multi) 08/03/2023 History of [place] (myocardial infarction) 08/03/2023 History of PTCA 08/03/2023 Hyperlipidemia 08/03/2023 Ischemic cardiomyopathy 08/03/2023 Two-vessel coronary artery disease 08/03/2023 Essential hypertension 08/03/2023 Family History Medical History Relation Name Comments hardening of the aorta Father Relation Name Status Comments Father Social History Tobacco Use Types Packs/Day Years Used Date Smoking Tobacco: Never Smokeless Tobacco: Never Tobacco Cessation:Counseling Given: Not Answered Alcohol Use Standard Drinks/Week Comments Yes 0 (1 standard drink = 0.6 oz pur e alcohol) very little Sex and Gender Information Value Date Recorded Sex Assigned at Not on file Legal Sex Male 10:53 AM EST Gender Identity Not on file Sexual Orientation Not on file Last Filed Vital Signs Vital Sign Reading Time Taken Comments Blood Pressure 126/78 02/06/2025 9:51 AM EDT Pulse 64 02/06/2025 9:51 AM EDT Temperature - - Respiratory Rate - - Oxygen Saturation - - Inhaled Oxygen Concentration - - Weight 113 kg (249 lb 3.2 oz) 02/06/2025 9:51 AM EDT Height 180.3 cm (5' 11 ) 02/06/2025 9:51 AM EDT Body Mass Index 34.76 02/06/2025 9:51 AM EDT Plan of Treatment Upcoming Encounters Date Type Department Care Team (Late st Contact Info) Description 02/12/2026 9:00 AM EDT Office Visit [facility] [address] [facility] [address] [place] [phone] Chang Barba DO [address] [place] [address] Health Maintenance Due Date Last Done Comments CT Colonography 1960 Colonoscopy 1960 Colorectal Cancer Screening 1960 Diabetes: Hemoglobin A1C 1959 Diabetes: Urine Protein Screening 1960 FIT-DNA (Cologuard) 1960 FIT 1960 Medicare Annual Wellness Visit (AWV) 1960 Sigmoidoscopy 1960 MMR Vaccines (1 of 1 - Standard series) 1960 Diabetes: Retinopathy Screening 1969 Hepatitis C Screening 1977 DTaP/Tdap/Td Vaccines (1 - Tdap) 1981 PSA Prostate Cancer Screening 2009 Zoster Vaccines (1 of 2) 2009 Pneumococcal Vaccine (2 of 2 - PCV) 07/26/2017 07/26/2016, 10/23/2007 RSV High Risk: (Elderly (60+) or Population) (1 - Risk 60-74 years 1-dose series) 2019 Lipid Panel 11/19/2021 11/19/2020, 11/14/2019 COVID-19 Vaccine ( - season) 2024 Influenza Vaccine (#1) 2025 9, 07/26/2016, 08/23/2015, Additional history exists HIB Vaccines Aged Out No longer eligi ble based on patient's age to complete this topic HPV Vaccines Aged Out No longer eligi ble based on patient's age to complete this topic Hepatitis A Vaccines Aged Out No long er eligible based on patient's age to complete this topic Hepatitis B Vaccines Aged Out No long er eligible based on patient's age to complete this topic IPV Vaccines Aged Out No longer eligi ble based on patient's age to complete this topic Meningococcal Vaccine Aged Out No carissa celia eligible based on patient's age to complete this topic Rotavirus Vaccines Aged Out No longer eligible based on patient's age to complete this topic Procedures Procedure Name Priority Date/Time Associated Diagnosis Comments LIPID PANEL Routine 11/19/2020 12:02 PM EST from Last 3 Months or Most Recently Relevant to Health Maintenance Results * (ABNORMAL) Lipid Panel (11/19/2020 12:02 PM EST) Cholesterol 135 0 - 199 mg/dL [facility] Comment: . AGE DESIRABLE BORDERLINE HIGH HIGH [...] be performed immediately prior to Metamizole dosing. HDL 29.0(A) mg/dL [facility] Comment: . AGE VERY LOW LOW NORMAL HIGH 0-19 Y < 35 < 40 40-45 ---- 20-24 Y ---- < 40 >45 ---- >24 Y ---- < 40 40-60 >60 . Cholesterol/HDL Ratio 4.7 [facility] Comment: REF VALUES DESIRABLE < 3.4 HIGH RISK > 5.0 LDL 85 0 - 99 mg/dL [facility] Comment: . NEAR BORD AGE DESIRABLE OPTIMAL HIGH HIGH VERY HIGH 0-19 Y 0 - 109 --- 110-129 >/= 130 ---- 20-24 Y 0 - 119 --- 120-159 >/= 160 ---- >24 Y 0 - 99 100-129 130-159 160-189 >/=190 . VLDL 21 0 - 40 mg/dL [facility] Triglycerides 106 0 - 149 mg/dL [facility] Comment: . AGE DESIRABLE BORDERLINE HIGH HIGH [...] be performed immediately prior to Metamizole dosing. 11/19/2020 12:0 2 PM EST 11/19/2020 5:40 PM EST Chang Barba DO LAB BLOOD ORDERABLES Final Result [facility] from Last 3 Months or Most Recently Relevant to Health Maintenance Insurance [employer] Care Teams Professor Of Medicine Relationship Specialty Start Date End Date Shaikh Simental MD [address] [place] [address] PCP - General Internal Medicine 02/07/24 Chang Barba DO [address] [facility] [address] [place] [address] Consulting Physician Cardiology 02/07/24
--- OUTSIDE RECORDS SUMMARY | 2025-05-29 11:15 | XMS_ITS | Clinical Summary ---
Author Organization [facility] Address [id number] [address] [place] [address] Care Team Providers Care Patient Service Rep Name Role Phone Paul Wolf DO Primary Care Provider [phone] Allergies Active Allergy Reactions Criticality Noted Date Comments Diclofenac Shortness Of Breath High 08/24/2017 Metformin 12/26/2016 Medications spironolactone (ALDACTONE) 25 mg tablet Take 25 mg by mouth in the morning. Active aspirin 81 mg Take 81 mg by mouth daily. Active carvedilol (COREG) 6.25 mg tablet Take 6.25 mg by mouth 2 (two) times a day with meals. Active sitaGLIPtin (JANUVIA) 100 mg tablet Take 100 mg by mouth in the morning. Active nitroglycerin (NITROSTAT) 0.[address] 0.4 mg under the tongue every 5 (five) minutes as needed for chest pain. Active liraglutide (VICTOZA) 0.6 mg/0.1 mL (18 mg/3 mL) pen injector Inject 1.8 mg under the skin daily. Active primidone (MYSOLINE) 250 mg tablet Take 125 mg by mouth once daily at bedtime. Active atorvastatin (LIPITOR) 40 mg tablet Take 40 mg by mouth nightly. 3 03/27/20 18 Active FREESTYLE LINDSAY 2 READER misc See Admin Instructions. 07/15/20 21 Active FREESTYLE LINDSAY 2 SENSOR kit USE DIRECTED change sensor EVERY 14 days 08/16/20 21 Active NovoLOG Flexpen U-100 Insulin 100 unit/mL (3 mL) insulin pen INJECT 5 (FIVE) UNITS SUBCUTANEOUSLY THREE TIMES DAILY WITH EACH meal while using steroids 06/15/20 Active sildenafiL (VIAGRA) 100 mg tablet TAKE 1 TABLET BY MOUTH 1 HOUR BEFORE SEXUAL ACTIVITY NEEDED. 08/02/20 Active TRESIBA FLEXTOUCH U-100 100 unit/mL (3 mL) insulin pen 08/30/20 Active OMNIPOD DASH 5 PACK POD cartridge CHANGE POD EVERY 3 DAYS DIRECTED 09/15/20 Active HYDROcodone-danielle taminophen (NORCO) 5-325 mg per tabletIndicatio ns:Thoracic radiculopathy,T horacic spondylosis without myelopathy Take 1 tablet by mouth 3 (three) times a day. Max Daily Amount: 3 tablets 90 tablet 06/29/20 Active cyclobenzaprine (FLEXERIL) 10 mg tablet Take 1 tablet (10 mg total) by mouth 3 (three) times a day as needed for muscle spasms. 90 tablet 1 08/29/20 22 Active celecoxib (CeleBREX) 100 mg capsule Take 1 capsule (100 mg total) by mouth in the morning and 1 capsule (100 mg total) before bedtime. 60 capsule 1 08/29/20 22 Active pregabalin (LYRICA) 150 mg capsuleIndicati ons:Thoracic radiculopathy,T horacic spondylosis without myelopathy Take 1 capsule (150 mg total) by mouth 3 (three) times a day. 90 capsule 1 08/29/20 22 Active Active Problems Problem Noted Date Diagnosed Date Thoracic spondylosis without myelopathy 02/03/20 Overview (02/02/2022): Added automatically from request for surgery [id number] Thoracic radiculopathy 01/11/2022 Lumbar disc displacement without myelopathy 03/23 Overview (04/10/2019): Added automatically from request for surgery [id number] Lumbago 02/13/2019 Overview (02/14/2019): Added automatically from request for surgery [id number] Primary osteoarthritis of right hip 08/08/2018 Right hip pain 05/17/2018 Overview (05/17/2018): Added automatically from request for surgery [id number] Lumbar spondylosis 01/24/2018 Disorder of sacrum 01/24/2018 Disc displacement, lumbar 01/01/2018 Overview (01/01/2018): Added automatically from request for surgery [id number] Lumbosacral spondylosis without myelopathy 06/15 Spondylosis of lumbar region without myelopathy or radiculopathy 12/26/2016 Postlaminectomy syndrome, lumbar region 12/27/19 17 Type 2 diabetes mellitus without complication Low back pain 04/30/2014 Family History Medical History Relation Name Comments Hypertension Brother Diabetes Father Stroke Mother Relation Name Status Comments Brother Father Mother Social History Tobacco Use Types Packs/Day Years Used Date Smoking Tobacco: Never Smokeless Tobacco: Never Alcohol Use Standard Drinks/Week Comments Yes 0 (1 standard drink = 0.6 oz pur e alcohol) rarely Childcare Answer Date Recorded Childcare Unknown 03/24/2019 Employment Answer Date Recorded Employment Unknown 03/24/2019 Purpose - Life Answer Date Recorded Purpose and direction in life Unknown Sex and Gender Information Value Date Recorded Sex Assigned at Male 06/25/2024 1:51 PM EDT Legal Sex Male 11:49 AM EDT Gender Identity Male 06/25/2024 1:51 PM EDT Sexual Orientation Not on file Last Filed Vital Signs Vital Sign Reading Time Taken Comments Blood Pressure 149/89 05/25/2022 12:09 PM EDT Pulse 75 05/25/2022 12:09 PM EDT Temperature 36.9 C (98.4 F) 04/22/2022 9:37 AM EDT Respiratory Rate 18 05/25/2022 12:09 PM EDT Oxygen Saturation 98% 04/22/2022 10:13 AM EDT Inhaled Oxygen Concentration - - Weight 108 kg (238 lb) 03/30/2022 12:28 PM EDT Height 177.8 cm (5' 10 ) 03/30/2022 12:28 PM EDT Body Mass Index 34.15 03/30/2022 12:28 PM EDT Plan of Treatment Health Maintenance Due Date Last Done Comments Diabetic Ophthalmology Exam 1959 Depression Screening 1971 Tobacco Screening 1971 Adult BMI Screening 1977 Diabetic Foot Exam 1977 DTaP,Tdap and Td Vaccines (1 - Tdap) 1978 Zoster (Shingles) Vaccine (1 of 2) 2009 COVID-19 Vaccine ( - season) 2024 07/26/2021, 01/21/2021, 12/31/2020 Fall Risk Screening 2024 Influenza Vaccine 06/23/2025 08/23/2018, 06/08/2015 Medical Devices Implanted Type Area Supercalender Operator Helper Device Identifier Shelf Expiration Date Model / Serial / Lot Neuro Stimulator Neuro Stimulator Neuro Stimulator-05/26 Implanted:01/2014 (Quantity not on file) Neuro Stimulator [employer] [id number] / [id number] / Stent Stent Heart Description:cardiac stents x 3 09/2014 Cardiac Stents Description:x3 Spinal Cord Stimulator Insurance [employer] Care Teams Patient Service Rep Relationship Specialty Start Date End Date Paul Wolf DO PCP - General 10/11/14
--- OUTSIDE RECORDS SUMMARY | 2025-05-29 11:15 | XMS_ITS | Encounter Summary ---
Author Organization [facility] Address [address] [place] [address] Care Team Providers Care Data Power Consultant Name Role Phone Ilia Hernandez MD Unavailable Susie Johansen PHYSICIAN RELATIONS SPECIALIST Unavailable [phone] Ilia Hernandez MD Primary Care Provider [phone] Susie Johansen NP Unavailable [phone] Shaikh EMIL Simental Unavailable [phone] Encounter Details Date Type Department Care Team (Late st Contact Info) Description 05/29/2024 Clinisync Result Encounter [facility] Unsolicited Susie Johansen NP Social History Tobacco Use Types Packs/Day Years Used Date Smoking Tobacco: Never Passive Smoke Exposure: Never Smokeless Tobacco: Never Alcohol Use Standard Drinks/Week Comments Never 0 (1 standard drink = 0.6 oz pur e alcohol) PHQ-2 Answer Date Recorded Patient Health Questionnaire-2 Score 0 03/04/2024 Sex and Gender Information Value Date Recorded Sex Assigned at Not on file Legal Sex Male 6:51 PM EDT Gender Identity Not on file Sexual Orientation Not on file documented as of this encounter Plan of Treatment Upcoming Encounters Date Type Department Care Team (Late st Contact Info) Description 07/03/2025 10:50 AM EDT Office Visit [facility] [address] [place] [address] Abdi Ortiz MD [address] [place] [address] documented as of this encounter Procedures Procedure Name Priority Date/Time Associated Diagnosis Comments XR HAND 1-2 VIEWS RIGHT 05/29/2024 5:16 AM EDT documented in this encounter Results * XR hand 1 or 2 views right (05/29/2024 5:16 AM EDT) Anatomical Region Laterality Modality Upper Extremities, Hand [facility] 05/29/2024 5:16 AM EDT Narrative 05/29/2024 5:19 AM EDT [address] [address] XRay Report Signed Patient: JAINS GAMING MR#: [id number] : 1960 Acct:[id number] Age/Sex: 63 / M ADM Date: 05/27/24 Loc: RAD Attending Dr: SUSIE JOHANSEN Ordering Physician: SUSIE JOHANSEN Date of Service: 05/27/24 Procedure(s): XR hand RT 2V Accession Number(s): [id number] cc: SUSIE JOHANSEN [address] [address] Patient Name: JANIS GAMING MRN: [id number] date: 1960 Sex: M Assigned Patient Location: [facility] Current Patient Location: Accession/Order Number: [id number] Exam Date: 05/27/2024 13:29 Report Date: 05/29/2024 05:16 At the request of: SUSIE JOHANSEN Procedure: XR hand RT 2V PROCEDURE: XR hand RT 2V HISTORY: Injury Of Finger Of Right Hand S69.91XA ; fourth digit pain since falling 6 weeks ago COMPARISON: None. FINDINGS: BONES:No acute fracture, dislocation, bone lesion. Multifocal mild degenerative changes. SOFT TISSUES:No visible soft tissue swelling. EFFUSION:None visible. OTHER: Negative. XR/XR hand RT 2V IMPRESSION: 1. No acute or suspicious findings to account for patient's symptoms. Electronically authenticated by: BEN HOFFMAN Date: 05/29/2024 05:16 Dictated By: Ben Hoffman M.D. Signed By: 05/29/24518 DD/ 5 TD/TT: Microbiology Lab Analyst: Procedure Note Radiology, Radiologist, MD - 05/29/2024 [place] [address] XRay Report Signed Patient: JANIS GAMING LMR#: [id number] : 1960Acct:[id number] Age/Sex: 63 / MADM Date: 05/27/24 Loc: [facility] Attending Dr: SUSIE JOHANSEN Ordering Physician: SUSIE JOHANSEN Date of Service: 05/27/24 Procedure(s): XR hand RT 2V Accession Number(s): [id number] cc: SUSIE JOHANSEN [place] [address] Patient Name: JANIS GAMING MRN: [id number] date: 1960 Sex: M Assigned Patient Location: [facility] Current Patient Location: Accession/Order Number: [id number] Exam Date: 05/27/2024 13:29 Report Date: 05/29/2024 05:16 At the request of: SUSIE JOHANSEN Procedure: XR hand RT 2V PROCEDURE: XR hand RT 2V HISTORY: Injury Of Finger Of Right Hand S69.91XA ; fourth digit pain since falling 6 weeks ago COMPARISON: None. FINDINGS: BONES:No acute fracture, dislocation, bone lesion. Multifocal mild degenerative changes. SOFT TISSUES:No visible soft tissue swelling. EFFUSION:None visible. OTHER: Negative. XR/XR hand RT 2V IMPRESSION: 1. No acute or suspicious findings to account for patient's symptoms. Electronically authenticated by: BEN HOFFMAN Date: 05/29/2024 05:16 Dictated By: Ben Hoffman M.D. Signed By:05/29/24518 DD/ 5 TD/TT: Microbiology Lab Analyst: Result [facility] Susie Johansen PHYSICIAN RELATIONS SPECIALIST IMG XR PROCEDURES Final Result documented in this encounter Visit Diagnoses Not on filedocumented in this encounter Additional Health Concerns Assessment Noted Time PHQ-9 Depression Total Score: 2 03/04/20 10:10 AM EDT documented as of this encounter Care Teams Data Power Consultant Relationship Specialty Start Date End Date Ilia Hernandez MD [address] [place] [phone] PCP - Devoted 05/23/21 10/22/24 Ilia Hernandez MD [address] [place] [phone] PCP - General Family Medicine 05/27/24 Shaikh Simental MD [address] [place] [phone] PCP - Devoted 10/23/24 Susie Johansen NP [address] [place] [phone] Nurse Practitioner Family Medicine 05/22/24 Susie Johansen NP [address] [place] [phone] Nurse Practitioner Family Medicine 05/27/24 documented as of this encounter
--- OUTSIDE RECORDS SUMMARY | 2025-05-29 11:15 | XMS_ITS | Clinical Summary ---
Author Organization [facility] Address [address] [place] [address] Care Team Providers Care Foaming Machine Operator Name Role Phone Susie Flores RD PROJECT MANAGER Unavailable [phone] Ilia Hernandez MD Primary Care Provider [phone] PROJECT MANAGER Unavailable [phone] Shaikh EMIL Simental Unavailable [phone] Allergies Active Allergy Reactions Criticality Noted Date Comments Prieto Inhibitors Cough 08/03/2023 Diclofenac Anaphylaxis,Other,Sh ortness of breath,Unknown High 08/24/2017 Lisinopril Medium 08/26/2024 Metformin Cough,Other,Unknown High 10/10/2014 Kidneys Shut Down Thimerosal Unknown 08/03/2023 Medications ASPIR 81 MG EC tablet Take 81 mg by mouth Daily 08/04/20 23 Active atorvastatin (Lipitor) 40 MG tablet Take 40 mg by mouth at bedtime 10/30/19 24 Active baclofen (Lioresal) 10 MG tablet Take 10 mg by mouth in the morning and 10 mg in the evening and 10 mg before bedtime. Active spironolactone (Aldactone) 25 MG tablet Take 25 mg by mouth Daily 09/13/20 23 Active nitroglycerin (Nitrostat) 0.4 MG SL tablet 02/07/20 24 Active glucagon (Gvoke HypoPen 2-Pack) 0.5 MG/0.1ML injectionIndicat ions:Hypoglycemi a Inject 0.1 mL (0.5 mg) under the skin 1 (one) time if needed for low blood sugar 0.2 mL 3 09/12/20 24 025 Active Insulin Disposable Pump (Omnipod DASH Pods, Gen 4,) miscIndications: Type 2 diabetes mellitus with hyperglycemia, with long-term current use of insulin (HCC) USE DIRECTED * change pod EVERY 72 HOURS * 30 each 1 10/21/20 24 Active Ozempic, 0.25 or 0.5 MG/DOSE, 2 MG/3ML solution pen-injectorIndi cations:Type 2 diabetes mellitus with other diabetic neurological complication (HCC) INJECT 0.5mg SUBCUTANEOUSLY weekly 9 mL 1 10/28/19 25 Active pregabalin (Lyrica) 75 MG capsuleIndicatio ns:Paresthesia Take 1 capsule (75 mg) by mouth in the morning and 1 capsule (75 mg) before bedtime. 60 capsule 2 01/08/20 25 Active propranolol (Inderal) 20 MG tabletIndication s:Essential tremor TAKE 1 TABLET BY MOUTH TWICE DAILY (IN THE MORNING and BEFORE bedtime) 60 tablet 4 01/29/20 25 Active Fiasp 100 UNIT/ML solutionIndicati ons:Type 2 diabetes mellitus with hyperglycemia, with long-term current use of insulin (HCC) INJECT SUBCUTANEOUSLY DIRECTED WITH INSULIN PUMP (MAX DAILY AMOUNT: 100 UNITS) 90 mL 4 02/13/20 25 Active Active Problems Problem Noted Date Diagnosed Date Benign paroxysmal positional vertigo due to bilateral vestibular disorder 10/31/2024 Vertigo 10/31/2024 Assessment & Plan (10/31/2024 3:20 PM EST): Was in [place] helping a friend move, woke up and [...] Provided pt with information on Chuckie Maneuvers. Vitamin D deficiency, unspecified 08/26/2024 Obesity, unspecified 08/26/2024 Presence of insulin pump (external) (internal) 1 10/26/2023 Encounter for fitting and adjustment of insulin pump 08/26/2024 medical terminologist (current) use of insulin 08/26/2024 Injury of finger of right hand 05/27/2024 Overview (05/27/2024): Right middle finger and ring finger Medicare annual wellness visit, subsequent 03/04 Assessment & Plan (03/04/2024 11:51 AM EDT): Patient here for Medicare Wellness. Reviewed medical, surgical and social history. Reviewed medication list. Patient screened for depression, fall risk, cognitive impairment. Patient provided appropriate education on chronic medical conditions, prescription medications. Patient's health related questions and concerns addressed and answered. Pigmented skin lesion suspicious for malignant n eoplasm 03/04/2024 Assessment & Plan (03/04/2024 11:51 AM EDT): About pea sized on left forearm. Grown in size in one year. Suspicion for melanoma Refer to Derm. Essential tremor 03/04/2024 Assessment & Plan (03/04/2024 11:53 AM EDT): Prior hx of essential tremors, previously was on primidone for it but it was not effective so he stopped. The dose was never titrated for maximal effect. He reports his symptoms are worse sometimes. He has noted they are progressively getting worse. Will refer to Neurology. Start on primidone. URTI (acute upper respiratory infection) 024 Assessment & Plan (01/03/2024 3:38 PM EDT): Patient reports headache, sinus and nasal congestion. Also has sore throat, generalized malaise and fatigue. Symptoms present x 2 days. Exam revealed bilateral otitis media, pharyngitis Will call in Prednisone, Augmentin, benzonatate. Diabetes mellitus 08/03/2023 Essential hypertension 08/03/2023 Assessment & Plan (01/03/2024 3:39 PM EDT): BP well controlled. On average less than 130/90. Tolerating Anti hypertensive w/o adverse effects. Denies lightheadedness, dizziness, syncope, presyncope. Patient encouraged to continue with home BP monitoring and call office if he experiences orthostatic symptoms or persistently elevated BP. History of NC (myocardial infarction) 08/03/2023 History of PTCA 08/03/2023 Hyperlipidemia 08/03/2023 Ischemic cardiomyopathy 08/03/2023 Two-vessel coronary artery disease 08/03/2023 Costochondral pain 09/22/2022 Degeneration of thoracic intervertebral disc 10/2021 Thoracic spondylosis without myelopathy 02/03/20 Overview (01/03/2024): Added automatically from request for surgery [id number] Assessment & Plan (10/31/2024 3:22 PM EST): Was following with PM several years ago, stopped going due to feeing like he was no longer seeing results. Is requesting to go back to different PM at this time for back pain,. Referral sent. Primary osteoarthritis of right hip 08/08/2018 Lumbosacral spondylosis without myelopathy 06/15 Sleep apnea 04/30/2014 Type 2 diabetes mellitus without complication Assessment & Plan (01/03/2024 3:38 PM EDT): Following Endocrine. Currently on Insulin pump along with Ozempic. Encounters Date Type Department Care Team Description 03/27/2025 10:50 AM EDT Office Visit [facility] [address] [place] [address] Abdi Ortiz MD Type 2 diabetes mellitus with hyperglycemia, with long-term current use of insulin (HCC) (Primary Dx); Presence of insulin pump (external) (internal); Encounter for fitting and adjustment of insulin pump; custodial (current) use of insulin (HCC); Vitamin D deficiency, unspecified; Mixed hyperlipidemia ; Hypoglycemia; Class 2 severe obesity due to excess calories with serious comorbidity and body mass index (BMI) of 36.0 to 36.9 in adult ([facility]-H[facility]) 03/27/2025 Bamboo flowsheet [facility] [address] [place] [id number] Abdi Ortiz MD 03/18/2025 Refill [facility] [address] [place] [address] Jenny Ruiz NP Vertigo 03/18/2025 Telephone [facility] [address] [place] [phone] Abdi Ortiz MD Prior Authorization from Last 3 Months Immunizations Immunization Administration Dates Next Due Influenza, injectable, quadr ivalent, preservative free 06/08/2015 Pfizer Purple Cap SARS-CoV-2 Vaccination 021,01/21/2021,12/31/2020 Family History Medical History Relation Name Comments Diabetes Brother Heart disease Brother Hypertension Brother Diabetes Father Heart disease Father Hypertension Mother Stroke Mother Relation Name Status Comments Brother Father Mother Social History Tobacco Use Types Packs/Day Years Used Date Smoking Tobacco: Never Passive Smoke Exposure: Never Smokeless Tobacco: Never Tobacco Cessation:Counseling Given: Not Answered Alcohol Use Standard Drinks/Week Comments Never 0 [...] Sign Reading Time Taken Comments Blood Pressure 130/80 03/27/2025 10:58 AM EDT Pulse 68 03/27/2025 10:58 AM EDT Temperature 36.2 C (97.1 F) 10/31/2024 3:02 PM EST Respiratory Rate 18 03/27/2025 10:58 AM EDT Oxygen Saturation 97% 03/27/2025 10:58 AM EDT Inhaled Oxygen Concentration - - Weight 116 kg (255 lb) 03/27/2025 10:58 AM EDT Height 177.8 cm (5' 10 ) 03/27/2025 10:58 AM EDT Body Mass Index 36.59 03/27/2025 10:58 AM EDT Plan of Treatment Upcoming Encounters Date Type Department Care Team (Late st Contact Info) Description 07/03/2025 10:50 AM EDT Office Visit [facility] [address] [place] [address] Abdi Ortiz MD [address] [place] [address] Health Maintenance Due Date Last Done Comments CT Colonography 1959 Colonoscopy 1959 FIT 1959 FOBT 1959 Sigmoidoscopy 1959 Diabetes: Urine Protein Screening 1978 Pneumococcal Vaccine: 65+ Ye ars (1 of 2 - PCV) 1978 Colorectal Cancer Screening 12/21/2024 FIT-DNA 12/21/2024 12/21/2021 Medicare Annual Wellness (AWV) 03/04/2025 03/04/2024 , 03/04/2024 Influenza Vaccine (#1) 2025 06/08/2015 Diabetes: Hemoglobin A1C 06/27/2025 025, 12/26/2024, 09/10/2024 Diabetes: Retinopathy Screening 01/02/2026 01/03/2024, 12/22/2023, 12/22/2023, Additional history exists Procedures Procedure Name Priority Date/Time Associated Diagnosis Comments POCT GLUCOSE Routine 03/27/2025 11:09 AM EDT Type 2 diabetes mellitus with hyperglycemia, with long-term current use of insulin (HCC) POCT GLYCOSYLATED HEMOGLOBIN (HGB A1C) Routine 03/27/2025 11:09 AM EDT Type 2 diabetes mellitus with hyperglycemia, with long-term current use of insulin (HCC) from Last 3 Months Results * POCT glycosylated hemoglobin (Hb A1C) docked device (03/27/2025 11:09 AM EDT) Hemoglobin A1C 6.8 Blood Venous blood specimen / Unknown 03/27/2025 11:09 AM EDT Abdi Ortiz MD POINT OF CARE TEST ENTER/EDIT ORDERABLES Final Result * (ABNORMAL) POCT glucose manually resulted (03/27/2025 11:09 AM EDT) Glucose Blood, POC 185 mg/dL Blood Capillary blood specimen / Unknown 03/27/2025 11:09 AM EDT Abdi Ortiz MD POINT OF CARE TEST ENTER/EDIT ORDERABLES Final Result from Last 3 Months Insurance [employer] Care Teams Foaming Machine Operator Relationship Specialty Start Date End Date Ilia Hernandez MD [address] [place] [id number] PCP - General Family Medicine 05/27/24 Shaikh Simental MD [address] [place] [phone] PCP - Devoted 10/23/24 Susie Flores NP Nurse Practitioner Family Medicine 05/22/24 Susie Flores NP Nurse Practitioner Family Medicine 05/27/24
--- OUTSIDE RECORDS SUMMARY | 2025-05-29 11:15 | XMS_ITS | Encounter Summary ---
Author Organization [facility] Address [address] [place] [address] Phone Care Team Providers Care Sterile Technician Name Role Phone Paul Wolf DO Primary Care Provider [phone] Shaikh EMIL Simental Primary Care Provider [phone] Chang Barba DO Unavailable [phone] Encounter Details Date Type Department Care Team (Late st Contact Info) Description 02/02/2023 Orders Only [facility] [address] [place] [address] Conversion, Onbase Social History Tobacco Use Types Packs/Day Years Used Date Smoking Tobacco: Never Assessed Sex and Gender Information Value Date Recorded Sex Assigned at Not on file Legal Sex Male 10:53 AM EST Gender Identity Not on file Sexual Orientation Not on file documented as of this encounter Plan of Treatment Upcoming Encounters Date Type Department Care Team (Late st Contact Info) Description 02/12/2026 9:00 AM EDT Office Visit [facility] [address] [facility] [address] [place] [address] Chang Barba DO [address] [place] [address] Scheduled Orders Name Type Priority Associated Diagnoses Orde r Schedule OUTSIDE LAB SCAN Lab Ordered: 02/02/2023 documented as of this encounter Visit Diagnoses Not on filedocumented in this encounter Care Teams Sterile Technician Relationship Specialty Start Date End Date Paul Wolf DO PCP - General 11/14/19 02/06/24 Shaikh Simental MD [address] [place] [address] PCP - General Internal Medicine 02/07/24 Chang Barba DO [address] [facility] [address] [address] Consulting Physician Cardiology 02/07/24 documented as of this encounter
--- OUTSIDE RECORDS SUMMARY | 2025-05-29 11:15 | XMS_ITS | Encounter Summary ---
Author Organization [facility] tem Address [id number] [address] [place] [address] Care Team Providers Care Engineered Wood Designer Name Role Phone Paul Wolf DO Primary Care Provider [phone] Encounter Details Date Type Department Care Team (Late st Contact Info) Description 03/30/2021 Telephone [facility] [address] [place] [phone] Debbie Reis, RN Social History Tobacco Use Types Packs/Day Years [...] PM EDT Sexual Orientation Not on file documented as of this encounter Plan of Treatment Not on file documented as of this encounter Visit Diagnoses Not on filedocumented in this encounter Care Teams Engineered Wood Designer Relationship Specialty Start Date End Date Paul Wolf DO PCP - General 10/11/14 documented as of this encounter
--- OUTSIDE RECORDS SUMMARY | 2025-05-29 11:15 | XMS_ITS | Encounter Summary ---
Author Organization [facility] tem Address [id number] [address] [place] [address] Care Team Providers Care Ase Master Mechanic Name Role Phone Paul Wolf DO Primary Care Provider [phone] Reason for Visit * Reason Onset Date Comments Med Refill 03/03/2021 Encounter Details Date Type Department Care Team (Late st Contact Info) Description 03/03/2021 Refill [facility] [address] [place] [phone] Debbie Reis, FELIPE Lumbar spondylosis Social History Tobacco Use Types Packs/Day Years [...] PM EDT Sexual Orientation Not on file COVID-19 Exposure Response Date Recorded In the last month, have you been in contact with someone who was confirmed or suspected to have Coronavirus / COVID-19? No / Unsure 02/23/2021 12:23 PM EDT documented as of this encounter Miscellaneous Notes * Telephone Encounter - Debbie Reis RN - 03/03/2021 2:53 PM EDT Last Office Visit: 02/23/21 Next Office Visit: 04/27/2021 Last Urine Drug Screen: N/A OARRS appropriate documented in this encounter Plan of Treatment Not on file documented as of this encounter Visit Diagnoses Diagnosis Lumbar spondylosis Lumbosacral spondylosis without myelopathy documented in this encounter Care Teams Ase Master Mechanic Relationship Specialty Start Date End Date Paul Wolf DO PCP - General 10/11/14 documented as of this encounter
--- OUTSIDE RECORDS SUMMARY | 2025-05-29 11:16 | XMS_ITS | Encounter Summary ---
Author Organization [facility] [facility] tem Address [facility] [place] [id number] [address] [place] [address] Care Team Providers Care Plant Breeder Name Role Phone Paul Wolf DO Primary Care Provider [phone] Encounter Details Date Type Department Care Team (Late st Contact Info) Description 12/23/2021 Orders Only [facility] [address] [place] [phone] Dann Lock MD [address] [place], [place] [id number] Social History Tobacco Use Types Packs/Day Years [...] or suspected to have Coronavirus / COVID-19? Yes 12/24/2021 10:11 AM EST documented as of this encounter Plan of Treatment Not on file documented as of this encounter Procedures Procedure Name Priority Date/Time Associated Diagnosis Comments SARS COV 2 (COVID-19) STAT 10/20/2021 documented in this encounter Results * SARS COV 2 (COVID-19) (10/20/2021) NASOPHARYNGEAL Dann Lock MD MICROBIOLOGY - GENERAL ORDERA BLES Final Result MANUALLY TRANSCRIBED RESULTS documented in this encounter Visit Diagnoses Not on filedocumented in this encounter Care Teams Plant Breeder Relationship Specialty Start Date End Date Paul Wolf DO PCP - General 10/11/14 documented as of this encounter
--- OUTSIDE RECORDS SUMMARY | 2025-05-29 11:16 | XMS_ITS | Continuity of Care Document ---
Author Organization [facility] Address [address] [place] [address] Problems Unknown Problems Results Test Result Date/Time Value / Unit Interp. Refere nce Range SARS-COV-2 (COVID19), NAAT[[id number]] Collected: 10/27/2020 04:27 PM Specimen Received: 10/29/2020 04:38 AM Source: [facility] SARS-CoV-2 INTERPRETATION [[id number]] 10/29/2020 11:22 AM Negative See Note SARS-CoV-2 RNA NOT DETECTEDN egative results do not preclude SARS-CoV-2 infection and should notbe used as the sole basis for patient management decisions. Negativeresults must be combined with clinical observations, patient history,and epidemiological information. Optimum specimen types and timingfor peak viral levels during infections caused by SARS-CoV-2 have notbeen determined. Collection of multiple specimens or types ofspecimens may be necessary to detect virus. Improper specimencollection and handling, sequence variability under primers/probes,or organism present below the limit of detection may lead to falsenegative results. Positive and negative predictive values oftesting are highly dependent on prevalence. False negative testresults are more likely when prevalence is high. SOURCE [[id number]] 10/29/2020 11:22 AM NASOPHARYNGEAL Note: Methodology is Kwaku C miguelito Real-Time RT-PCR. The expected result or reference range is NEGATIVE (Not Detected). For more information regarding COVID-19 testing to include clinicalinformation, methodology detail, intended use, FDA authorization andrecommended fact sheets for patients or healthcare providers, see [employer]cAk[employer] & other things you bake Announcement: SARS-CoV-2 (COVID-19) by NAAT at URL below (note,fact sheets are provided by method given in report:[email or web address]/ Alternatively, see downloadable PDF fact sheet at:https://www.[facility].Max Endoscopy/[email or web address]-IU-PCR Allergies, adverse reactions, alerts No known allergies and adverse reactions Medications No administered medications reported Vital Signs No vital signs reported Social History No smoking Hx information available
--- OUTSIDE RECORDS SUMMARY | 2025-05-29 11:16 | XMS_ITS | Clinical Summary ---
Author Organization [facility] Address [address] [place], [place] [id number] Care Team Providers Care Tile Machine Operator Name Role Phone House Sr., Paul CONTRERAS Cherry Primary Care Provider + Poonam Gamez(Historical) PADaveC Unavailable Unavailable Allergies Active Allergy Reactions Criticality Noted Date Comments Diclofenac Anaphylaxis High 09/22/2022 Metformin Other: See Comments High 09/22/2022 Kidneys Shut Down Medications aspirin, enteric coated (ASPIRIN, ENTERIC COATED) 81 mg EC tablet Aspir-81 Active atorvastatin (LIPITOR) 40 mg tablet Take 40 mg by mouth. 8 Active baclofen (LIORESAL) 10 mg tablet baclofen 10 mg tablet 1 Active carvedilol (COREG) 6.25 mg tablet carvedilol 6.25 mg tablet 2 Active celecoxib (CELEBREX) 100 mg capsule Take 100 mg by mouth. 2 Active cyclobenzaprin e (FLEXERIL) 10 mg tablet Take 10 mg by mouth. 2 Active glimepiride (AMARYL) 4 mg tablet glimepiride 4 mg tablet 2 Active HYDROcodone-ac etaminophen (NORCO) 5-325 mg per tablet Take 1 tablet by mouth. 2 Active insulin aspart U-100 (NOVOLOG) 100 unit/mL Inject subcutaneously. Puts 200 units in pump, will last 3 days 2 Active insulin degludec (TRESIBA FLEXTOUCH U-100) 100 unit/mL (3 mL) injection pen 1 Active liraglutide (VICTOZA) 0.6 mg/0.1 mL (18 mg/3 mL) 1 Active methocarbamol (ROBAXIN) 750 mg tablet methocarbamol 750 mg tablet Active nitroglycerin sublingual (NITROQUICK) 0.4 mg SL tablet nitroglycerin 0.4 mg sublingual tablet 1 Active pregabalin (LYRICA) 50 mg capsule Lyrica 50 mg capsule Active primidone (MYSOLINE) 250 mg tablet Take 125 mg by mouth. 0 Active sildenafil (VIAGRA) 100 mg tablet TAKE 1 TABLET BY MOUTH 1 HOUR BEFORE SEXUAL ACTIVITY NEEDED. 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 Costochondral pain 09/22/2022 Degeneration of thoracic intervertebral disc 10/2021 Thoracic radiculitis 09/22/2022 Social History Tobacco Use Types Packs/Day Years Used Date Smoking Tobacco: Never Smokeless Tobacco: Never Tobacco Cessation:Counseling Given: Not Answered Alcohol Use Standard Drinks/Week Comments Never 0 (1 standard drink = 0.6 oz pur e alcohol) Area Deprivation Index Answer Date Donta rded National Score (1-100), lower number is lower ri sk 69 11/22/2022 State Score (1-10), lower number is lower risk N ot on file 11/22/2022 Data from: https://www.neighborhoodatlas.medicine.[facility].edu/. Last address used for calculation [address] [facility] [address] [facility] 11/22/2022 Sex and Gender Information Value Date Recorded Sex Assigned at Not on file Legal Sex Male 8:13 AM EDT Gender Identity Not on file Sexual Orientation Not on file Last Filed Vital Signs Vital Sign Reading Time Taken Comments Blood Pressure - - Pulse - - Temperature - - Respiratory Rate - - Oxygen Saturation - - Inhaled Oxygen Concentration - - Weight 110.6 kg (243 lb 12.8 oz) 09/22/2022 3:14 PM EST Height 177.8 cm (5' 10 ) 09/22/2022 3:14 PM EST Body Mass Index 34.98 09/22/2022 3:14 PM EST Plan of Treatment Health Maintenance Due Date Last Done Comments HbA1C 1964 Diabetic Foot Exam 1969 Dilated Retinal Exam 1969 Urine Albumin:Creatinine Ratio 1969 Annual PCP Team Chronic Dise ase Visit 1977 Anxiety Screening 1977 Depression Screening 1977 HIV Screening 1977 Hepatitis C Screening 1977 LDL Cholesterol 1977 DTaP,Tdap,Td Vaccine (1 - Tdap) 1978 CT Colonography 2004 Cologuard (FIT-DNA) 2004 Colonoscopy 2004 Colorectal Cancer Screening 2004 Fecal Occult Blood 2004 Prostate Cancer Screening Discussion 2004 Sigmoidoscopy 2004 Shingrix Vaccine (1 of 2) 2009 Pneumococcal Vaccine: 50+ (2 of 2 - PCV) 07/26/2017 07/26/2016, 10/23/2007 RSV Vaccine (1 - Risk 60-74 years 1-dose series) 2019 Medicare Advantage Annual We llness Visit 10/23/2024 Advance Directive Discussion 2024 Influenza Vaccine (#1) 2025 9, 07/26/2016, 08/23/2015, Additional history exists Insurance Care Teams Tile Machine Operator Relationship Specialty Start Date End Date Paul Wolf Sr., PCP - General Family Medicine 05/19/22 Poonam Gamez(Historical), FUNMI Referring 05/19/22
[2025-05-29 12:18] LABS: Estimated GFR (African America >60 (>=60 mL/min/1.73m^2); Estimated GFR (Non-African Ame >60 (>=60 mL/min/1.73m^2)
[2025-05-29 13:09] LABS: Microalbum Creatinine Ratio Ur 9.5 mg/g (0.0-29.9)
== END 2025-05-29 11:07 | disposition home or self-care (01) ==
PROVIDERS: Visit Provider Nurse Practitioner
DX: E11.69 Type 2 diabetes mellitus with other specified complication (principal)
CPT/HCPCS: 36415; 82043; 82565; 82570